=== PATIENT | male | born 1945 | race Caucasian/White ===

== ENCOUNTER 2021-09-02 14:37 | Outpatient (CLI) | payer OTHER, SELFPAY ==
--- NOTE | ~2021-09-02 | US_ITS ---
EXAMINATION: US venous doppler UE RT DATE: 09/02/2021 15:16 INDICATION: Right upper extremity swelling TECHNIQUE: Grayscale ultrasound images without and with compression and Doppler ultrasound images of the right upper extremity veins were obtained. COMPARISON: None. FINDINGS: The right internal jugular vein, subclavian vein, axillary vein, brachial veins, basilic vein, cephal ic vein, radial vein, and ulnar vein are patent. IMPRESSION: 1. No evidence of deep venous thrombosis. Reviewed, dictated and finalized at location A. ITION TEACHER
--- NOTE | ~2021-09-02 | CT_ITS ---
EXAMINATION: CT brain wo con DATE: 09/02/2021 15:26 INDICATION: Head injury. TECHNIQUE: Computed tomography (CT) of the head was performed without intravenous contrast. The mA wa s adjusted according to patient size. Iterative reconstruction technique was employed. The dose-lengt h product was 605.33 mGy-cm. COMPARISON: None FINDINGS: There is no intracranial hemorrhage, acute infarction, or abnormal intracranial mass lesion . 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 There are scattered areas of low atten uation in the cerebral white matter, which is within normal limits for the patient's age. The ventri cles are normal in size. There is mild mucosal thickening in the paranasal sinuses. There are likely changes of ocular lens replacement surgeries. The mastoid air cells are normal. IMPRESSION: 1. 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 Reviewed, dictated and finalized at location A. OR BENEFITS SPECIALIST
--- NOTE | ~2021-09-02 | CT_ITS ---
EXAMINATION: CT facial bones wo con DATE: 09/02/2021 15:26 INDICATION: Face injury. TECHNIQUE: Computed tomography (CT) of the facial bones and maxillofacial region was performed withou t intravenous contrast. Automated exposure control and iterative reconstruction technique were employ ed. The dose-length product was 495.16 mGy-cm. COMPARISON: None. FINDINGS: There are likely changes of ocular lens replacement surgeries. There is rightward deviation of the nasal septum. There are dystrophic calcifications in the nose. There is mild mucosal thickeni ng in the paranasal sinuses. There is severe cervical spondylosis. IMPRESSION: 1. No fracture. Reviewed, dictated and finalized at location A. OYEE WELLNESS/FITNESS COORDINATOR IMPRESSION: 1. No fracture.
== END 2021-09-02 14:38 | disposition home or self-care (01) ==
LOC: ANHIMG 14:43
PROVIDERS: PCP Internal Medicine; Visit Provider Registered Nurse
DX: S00.83XA Contusion of other part of head, initial encounter (principal); W19.XXXA Unspecified fall, initial encounter; M79.89 Other specified soft tissue disorders; M79.601 Pain in right arm; R23.8 Other skin changes; Z86.73 Personal history of transient ischemic attack (TIA), and cerebral infarction without residual deficits
CPT/HCPCS: 70450; 70486; 93971

== ENCOUNTER 2021-09-02 16:55 | Emergency (ER) | payer OTHER, SELFPAY ==
--- NOTE | ~2021-09-02 | CT_ITS ---
EXAMINATION: CT cervical spine wo con DATE: 09/02/2021 18:05 INDICATION: Fall 3 days ago; neck pain. TECHNIQUE: Computed tomography (CT) of the cervical spine was performed without intravenous contrast. Automated exposure control and iterative reconstruction technique were employed. Exam dose: 521.86 mGy-cm total exam DLP. COMPARISON: None FINDINGS: There is straightening of cervical spine, which may be due to muscle spasm and/or positioni ng. There is degenerative disc disease throughout the cervical spine, C3-4, C4-5, C5-6 and C6-7 as well as C7-T1. There is 4 mm anterolisthesis at C7-T1. There is prominent degenerative change at the apophyseal and uncovertebral joints throughout the cerv ical spine. No fracture of the cervical spine is evident. C1 and C2 are normally aligned and the odontoid process is intact. No prevertebral soft tissue swelling.. IMPRESSION: Straightening Extensive degenerative changes 4 mm anterolisthesis at C7-T1 No fracture or dislocation is noted otherwise Reviewed, dictated and finalized at [facility]. Reviewed, dictated and finalized at location A. BUILDER HELPER
--- NOTE | ~2021-09-02 | XR_ITS ---
XR elbow RT min 3V DATE: 09/02/2021 17:57 INDICATION: Generalized left elbow pain after fall. TECHNIQUE: 4 views COMPARISON: None FINDINGS: Mild dorsal olecranon process spur. There is osteoarthritic change at the elbow joint. There is elevation of the anterior and posterior fat pads compatible with elbow joint effusion. No recent fracture or dislocation, periosteal reaction or bone destruction is evident. IV is noted in the antecubital fossa. IMPRESSION: Elbow joint effusion; no apparent recent fracture or dislocation Osteoarthritis Dorsal olecranon process spur Reviewed, dictated and finalized at location A. NGUAL SALES REPRESENTATIVE
[2021-09-02 17:04] VITALS: BP 145/93; PULSE 92; RESP 18; TEMP 36.9; O2SAT 98
[2021-09-02 17:20] VITALS: PULSE 94; RESP 17; O2SAT 97
--- NOTE | 2021-09-02 17:29 | PC.NURSE ---
20g IV initiated in right ac x1 attempt. labs drawn.
[2021-09-02 17:30] VITALS: PULSE 94; RESP 19; O2SAT 97
--- NOTE | 2021-09-02 18:42 | ED.NECK ---
HPI - Neck Pain/Injury General Chief Complaint: Neck Pain/Injury Stated Complaint: fall/ neck injury Time Seen by Provider: 09/02/21 17:32 Source: patient and RN notes reviewed Mode of arrival: ambulatory Limitations: no limitations History of Present Illness HPI Narrative: This is a 76 year old male who presents for evaluation of possible neck injury. Patient states he accidentally fell leaving a bar on Sunday. He suffered right elbow bruising and facial wounds. He was evaluated by his primary care provider today and they ordered outpatient imaging. Patient was sent to [facility] for CT brain, CT face and right arm venous Doppler. Patient also state he had an xray of his neck and right elbow performed in clinic. The nurse practitioner from his doctor's office called [facility] to state she was sending patient to ER for an odontoid fracture seen on xray. PAtient states he never had neck pain and he does not currently have neck pain. He also denies any focal weakness , numbness or tingling. He denies rib pain, sob, or abdominal pain. He was placed in C collar on arrival to ER. He states he had an US of his right arm due to redness and swelling at his right elbow. He denies any elbow pain. Related Data Home Medications Medication Instructions Recorded Confirmed allopurinol 300 mg PO DAILY 09/02/21 atorvastatin 20 mg PO DAILY 09/02/21 furosemide [Lasix] 40 mg PO DAILY 09/02/21 metoprolol succinate 25 mg PO 09/02/21 spironolactone 25 mg PO DAILY 09/02/21 Allergies Allergy/AdvReac Type Severity Reaction Status Date / Time No Known Allergies Allergy Verified 09/02/21 17:12 Review of Systems Review of Systems: All systems reviewed & are unremarkable except as noted in HPI and below [facility] Past Medical History Medical History (Updated 09/02/21 @ 18:57 by Lupe Selby MD) Hypertension Surgical History Surgical History (Updated 09/02/21 @ 18:52 by Lupe Selby MD) History of tonsillectomy Social History Social History (Updated 09/02/21 @ 18:52 by Lupe Selby MD) Alcohol intake: current Exam Const: General: no acute distress and alert Orientation/consciousness: patient oriented x3 HENMT: Head: normocephalic, atraumatic and other (right facial abrasion and bruising) Face and sinus: sinuses nontender and face symmetric Mouth: Yes Normal oral and palatal mucosa present, Yes lip normal, Yes oropharynx normal and Yes moist mucous membranes Eyes: Pupils: Equal, round and reactive pupils present EOM: EOMs intact bilaterally Neck: Neck: normal visual inspection Chest: Chest palpation & inspection: normal inspection of the chest Resp: Effort & Inspection: normal respiratory effort and no retractions Auscultation: clear to auscultation bilaterally Cardio: Rate: regular rate Rhythm: regular rhythm Heart sounds: no murmurs GI: GI Palp: Yes Soft to palpation, No Tenderness to palpation present (GI) and No Guarding due to palpation present (GI) Auscultation: normal bowel sounds Other: ecchymosis to left flank Neuro: General: patient oriented x3 and moves all extremities Extrem: Other: right arm with swelling and erythema medial elbow, no tenderness, FROM Psych: Mental Status: mental status grossly normal Affect: normal affect Course Reevaluation(s) Reevaluation #1: I discussed with patient and his no fracture found on imagine. He will be started on keflex for right elbow cellulitis. He was given tetanus by PCP Date: 09/02/21 Time: 18:54 Vital Signs Vital signs: Vital Signs Temperature 98.4 F 09/02/21 17:04 Pulse Rate 92 09/02/21 17:04 Respiratory Rate 18 09/02/21 17:04 Blood Pressure 145/93 H 09/02/21 17:04 Pulse Oximetry 98 09/02/21 17:04 Temperature 98.4 F 09/02/21 17:04 Pulse Rate 70 09/02/21 19:14 Respiratory Rate 18 09/02/21 19:14 Blood Pressure 123/70 09/02/21 19:14 Pulse Oximetry 99 09/02/21 19:14 MDM - Neck
[2021-09-02 19:14] VITALS: BP 123/70; PULSE 70; RESP 18; O2SAT 99
== END 2021-09-02 19:16 | disposition home or self-care (01) ==
PROVIDERS: Emergency Provider General Practice; PCP Internal Medicine
DX: M25.421 Effusion, right elbow (principal); L03.811 Cellulitis of head [any part, except face]; S00.81XA Abrasion of other part of head, initial encounter; I10 Essential (primary) hypertension; W19.XXXA Unspecified fall, initial encounter; Y92.89 Other specified places as the place of occurrence of the external cause
CPT/HCPCS: 70450; 70486; 72125; 73080; 93971; 99284

== ENCOUNTER 2022-03-10 12:32 | Outpatient (CLI) | payer OTHER, SELFPAY ==
--- NOTE | ~2022-03-10 | US_ITS ---
EXAMINATION: US venous doppler LE RT DATE: 03/10/2022 13:15 INDICATION: Right lower limb swelling TECHNIQUE: Grayscale ultrasound images without and with compression and Doppler ultrasound images of the right lower extremity veins were obtained. COMPARISON: 05/10/2018 FINDINGS: The right femoral vein is partially compressible with persistent nonocclusive thrombus in the proxima l to distal right femoral vein. The visualized portions of right common femoral vein, profunda (deep) femoral vein, popliteal vein, posterior tibial veins, gastrocnemius vein and greater saphenous vein outflow are patent. The right peroneal veins are not identified. IMPRESSION: 1. Age-indeterminate nonocclusive thrombus in the proximal to distal right femoral vein where there was previous thrombus and is unclear whether this is chronic or recurrent. Reviewed, dictated and finalized at location B. IMPRESSION: 1. Age-indeterminate nonocclusive thrombus in the proximal to distal right fem oral vein where there was previous thrombus and is unclear whether this is buffer chrome suzy or recurrent.
== END 2022-03-10 12:33 | disposition home or self-care (01) ==
PROVIDERS: PCP Internal Medicine; Visit Provider Nurse Practitioner Family
DX: I82.411 Acute embolism and thrombosis of right femoral vein (principal)
CPT/HCPCS: 93971

== ENCOUNTER 2024-06-13 10:07 | Observation (INO) | payer OTHER, SELFPAY ==
[2024-06-13] VITALS (8 sets, daily range): BP systolic 110–120; BP diastolic 51–69; PULSE 83–102; RESP 15–20; TEMP 36.5–36.6; O2SAT 97–100; BMI 33.7
--- NOTE | ~2024-06-13 | XR_ITS ---
XR_[id number] Ordering provider: Jodie Judd APRN History: . unstable subluxation, ortho requests straight leg . Comparison: None. FINDINGS: BONES: No acute fracture. Anterior subluxation of the femoral prosthesis is seen. JOINT SPACES: Total knee arthroplasty. SOFT TISSUES: Normal. IMPRESSION: No acute osseous abnormality. Anterior dislocation of the femur arthroplasty prosthesis of the knee compared to the tibial the pros thesis. Reviewed, dictated and finalized at location A. IMPRESSION: No acute osseous abnormality. Anterior dislocation of the femur arthroplasty prosthesis of the knee compared to the tibial the prosthesis.
--- NOTE | ~2024-06-13 | US_ITS ---
US arterial ankle brachial ind INDICATION: Arterial occlusion. High cholesterol levels. Loss of hair. TECHNIQUE: Segmental pressures and plethysmographic and Doppler waveforms of the brachial and lower e xtremity arteries were obtained. COMPARISON: No prior studies for comparison. . FINDINGS: Right and left brachial artery pressures of 103 mm Hg and 112 mm Hg, respectively, are concordant (no rmal difference <= 30 mmHg). Ankle-brachial indices could not be obtained. A total brachial indices are below normal limits measur ing 0.57 on the right and 0.4 on the left. IMPRESSION: 1. Limited study. Ankle-brachial indices could not be performed. Toe brachial indices below normal li mits consistent with peripheral arterial disease. Reviewed, dictated and finalized at location B. IMPRESSION: 1. Limited study. Ankle-brachial indices could not be performed. Toe brachial i ndices below normal limits consistent with peripheral arterial disease.
--- NOTE | ~2024-06-13 | XR_ITS ---
XR knee LT min 4V 06/13/2024 11:42 Indication: Left knee swelling Procedure: 4 views left knee Comparison: No prior studies for comparison. Findings: There is posterior subluxation of the knee. There is a left knee arthroplasty. There is an old healed distal femoral fracture with cerclage wires. There is longstem femoral component to the kn ee arthroplasty. There is patellar resurfacing. There is a proximal fibular fracture, age indetermina te. Moderate lateral soft tissue swelling. Impression: 1: Posterior subluxation of the tibia with respect to the femur. 2: Age-indeterminate proximal fibular head fracture with adjacent soft tissue swelling. 3: Left knee arthroplasty with longstem femoral component. Reviewed, dictated and finalized at location B. Impression: 1: Posterior subluxation of the tibia with respect to the femur. 2: Age-indeterminate proximal fibular head fracture with adjacent soft tissue s welling. 3: Left knee arthroplasty with longstem femoral component.
--- NOTE | ~2024-06-13 | CT_ITS ---
CTA chest PE protocol Ordering provider: Jodie Judd APRN History: 78 years Male with . swollen left leg, elevated d.dimer . Comparison: None. Technique: CT angiogram chest was performed following timed intravenous injection of contrast. Thin s lice axial images and reformatted coronal images were obtained. Three dimensional reformatted images of the chest were also obtained using a [employer] workstation. . Automated exposure control and iterati ve reconstruction technique were employed. The dose-length product was 719.76 mGy-cm. 100 mL Omnipaqu e 350 was given IV. Findings: PULMONARY ARTERIES: No pulmonary embolus. VISUALIZED THORACIC INLET: Normal. MEDIASTINUM: Aorta/coronary arteries: Mild atheromatous disease. Aortic valve prosthesis is noted. Heart/other: The heart is not enlarged. Lymph nodes: No mediastinal or hilar adenopathy. Multiple calcified lymph nodes. Right hilar and subc arinal lymph nodes. LUNGS: Minimal left basilar atelectasis with minimal effusion. No pulmonary nodules or masses. No infiltrate s . No pneumothorax. VISUALIZED UPPER ABDOMEN: Small sliding hiatus hernia. Anterior abdominal wall fat-containing hernia. Otherwise, the visualized upper abdomen is normal. MUSCULOSKELETAL: Soft tissues: The superficial soft tissues are normal. Bones: Age appropriate degenerative changes of the spine. Postoperative changes in the sternum with d ehiscence of the bones. IMPRESSION: 1. No pulmonary embolism. 2. Minimal left basilar atelectasis with minimal effusion. 3. Sliding hiatus hernia. 4. Postoperative changes in the mediastinum with dehiscence of the sternum. Reviewed, dictated and finalized at location A.
--- NOTE | ~2024-06-13 | US_ITS ---
EXAMINATION: US venous doppler [facility] DATE: 06/13/2024 11:56 INDICATION: Left lower limb pain and swelling TECHNIQUE: Grayscale ultrasound images without and with compression and Doppler ultrasound images of the left lower extremity veins were obtained. COMPARISON: None. FINDINGS: The visualized portions of left common femoral vein, profunda (deep) femoral vein, femoral vein, popl iteal vein, peroneal veins, posterior tibial veins, gastrocnemius vein and greater saphenous vein out flow are patent. Incidentally noted is a small region atherosclerotic plaque at the mid left superfic ial femoral artery which appears significant on the provided images however the downstream peak systo lic velocity of 30 cm/s does not appear significantly elevated. IMPRESSION: 1. No deep venous thrombosis in the left lower limb. 2. Small region of atherosclerotic plaque at the mid left superficial femoral artery which on the pro vided imaging plane appears to involve greater than 70% the intraluminal diameter of the vessel howev er the downstream peak systolic velocity does not appear elevated. There is clinical concern for arjun rial occlusive disease could consider arterial Doppler study for further evaluation. Reviewed, dictated and finalized at location A. IMPRESSION: 1. No deep venous thrombosis in the left lower limb. 2. Small region of atherosclerotic plaque at the mid left superficial femoral a rtery which on the provided imaging plane appears to involve greater than 70% t he intraluminal diameter of the vessel however the downstream peak systolic bishop ocity does not appear elevated. There is clinical concern for arterial occlusiv e disease could consider arterial Doppler study for further evaluation.
--- NOTE | ~2024-06-13 | US_ITS ---
US right upper quadrant INDICATION: PROCEDURE: Realtime right upper abdominal ultrasound. COMPARISON: No prior studies for comparison. FINDINGS: Pancreas not well visualized due to bowel gas. Limited visualization of the liver is grossl y unremarkable. Gallbladder is not well distended, although grossly unremarkable. Common duct is norm al measuring 2.7 mm. Normal directional flow in the portal vein. IMPRESSION: 1: Limited examination of the abdomen. No significant abnormality identified. Reviewed, dictated and finalized at location B.
--- NOTE | ~2024-06-13 | XR_ITS ---
EXAM: XR_[id number]_CR DATE: 06/13/2024 18:38 HISTORY: post reduction . COMPARISON: Same date at 4:35 PM. FINDINGS/IMPRESSION: Successful interval left knee reduction. No other significant interval change. Reviewed, dictated and finalized at location K.
--- NOTE | ~2024-06-13 | XR_ITS ---
EXAMINATION: XR chest 2V 06/13/2024 11:41 INDICATION: Cardiac history. Cough. PROCEDURE: 2 view chest COMPARISON: No prior studies for comparison. FINDINGS: The lungs are clear. Status post median sternotomy for CABG. There is a prosthetic heart va lve. There are multiple fractured sternal wires. The cardiomediastinal silhouette is enlarged. There are no pleural effusions. There is no pneumothorax suspected. IMPRESSION: 1: No acute cardiopulmonary disease. 2: Cardiomegaly. Reviewed, dictated and finalized at location B.
--- NOTE | 2024-06-13 10:29 | ECG_ITS ---
Test Date: 2024-06-13 10:32:17 Measurements Intervals [place] Rate: 91 P: 0 [place]: 0 QRS: 29 QRSD: 161 T: 54 QT: 401 QTc: 494 Interpretive Statements SINUS RHYTHM BORDERLINE AV CONDUCTION DELAY LEFT BUNDLE BRANCH BLOCK BASELINE ARTIFACT- I, II, III, AVR, AVL, AVF, V4-V5 ABNORMAL ECG No previous ECG available for comparison Electronically Signed On 06-13-2024 10:34:16 CDT by Eran Salcedo D.O.
--- NOTE | 2024-06-13 10:50 | ED.EXTPRO ---
HPI - Extremity Problem General Chief complaint: Extremity Problem,Nontraumatic <Jodie Judd APRN - Last Filed: 06/13/24 20:05> Stated complaint: leg edema <Jodie Judd APRN - Last Filed: 06/13/24 20:05> Time Seen by Provider: 06/13/24 10:12 <Jodie Judd APRN - Last Filed: 06/13/24 20:05> Source: patient and family <Jodie Judd APRN - Last Filed: 06/13/24 20:05> Limitations: no limitations <Jodie Judd APRN - Last Filed: 06/13/24 20:05> History of Present Illness HPI Narrative: Patient is a 78-year-old male who presents to the ER with left-sided knee and pain. He reports he has a history of AFib, cardiac surgery, left knee replacement, gout, and congestive heart failure. Patient reports he drinks alcohol every day. He reports he went to [place] on Sunday for evaluation of a sudden onset left knee, left calf pain and swelling. Patient also endorses a bloated abdomen, coughing up sputum, and falls with the most recent being last Sunday (6 days ago) when he landed on his left knee after he rolled out of bed. He endorses his left leg pain feels like a charley horse and has caused him to stop in his tracks at times. Patient denies chest pain, shortness a breath, or other signs/symptoms of illness. <Jodie Judd APRN - Last Filed: 06/13/24 20:05> Related Data Home medications: Home Medications Medication Instructions Recorded Confirmed allopurinol 300 mg tablet 300 mg PO DAILY 09/02/21 atorvastatin 20 mg tablet 20 mg PO DAILY 09/02/21 furosemide 40 mg tablet (Lasix) 40 mg PO DAILY 09/02/21 metoprolol succinate 25 mg 25 mg PO 09/02/21 tablet,extended release 24 hr spironolactone 25 mg tablet 25 mg PO DAILY 09/02/21 <Jodie Judd APRN - Last Filed: 06/13/24 20:05> Allergies/Adverse reactions: Allergies Allergy/AdvReac Type Severity Reaction Status Date / Time No Known Allergies Allergy Verified 09/02/21 17:12 <Jodie Judd APRN - Last Filed: 06/13/24 20:05> Review of Systems Review of Systems: All systems reviewed & are unremarkable except as noted in HPI and below <Jodie Judd APRN - Last Filed: 06/13/24 20:05> PMFSH Past Medical History Medical History: Medical History (Updated 06/13/24 @ 19:30 by Jodie Judd APRN) Arterial insufficiency of lower extremity CAD (coronary artery disease) CHF (congestive heart failure) Chronic a-fib Dislocation of prosthetic knee joint Hypertension <Jodie Judd APRN - Last Filed: 06/13/24 20:05> Surgical History Surgical History: Surgical History History of tonsillectomy Hx of CABG <Jodie Judd APRN - Last Filed: 06/13/24 20:05> Social History Social History: Social History Alcohol intake: current <Jodie Judd APRN - Last Filed: 06/13/24 20:05> Exam Narrative: GENERAL: Well appearing, well-nourished, non-toxic, in no acute distress. HEAD: Normocephalic, atraumatic. No notable nystagmus. NECK: Supple. No adenopathy, no masses. RESPIRATORY: Airway patent, respirations nonlabored. Clear to auscultation bilaterally, no rales, rhonchi, wheezing. Positive for productive cough. CARDIOVASCULAR: Irregular rate and rhythm without murmurs, rubs, or gallops. Peripheral pulses 1+ and equal bilaterally. Discoloration in lower extremities most likely d/t PAD. ABDOMINAL: Soft, nontender, mildly distended, no hepatosplenomegaly. Normoactive BS. MUSCULOSKELETAL: Moves all extremities. Strength intact with 2+ non-pitting edema to bilateral lower extremities. L and R knee have moderate swelling. L knee has mild ecchymosis and greater swelling than R knee. SKIN: Warm, dry, increased redness to lower extremities. No rashes. NEURO: A&O X3. Speech clear. Cranial nerves intact. No ataxic movements. PSYCHIATRIC:
[2024-06-13 11:06] LABS: Basophils Percent Auto 0.2 % (0.2-1.2); Eosinophils Absolute Auto 0.1 K/mm3 (0-0.3); Eosinophils Percent Auto 0.4 % (0-4.4); Hemoglobin 12.6 g/dL (14.0-18.0); Immature Granulocyte Absolute 0.04 K/mm3 (0.00-0.031); Immature Granulocyte Percent A 0.3 % (0-0.5); Lymphocytes Percent Auto 15.2 % (18.3-44.2); Mean Corpuscular HGB Conc 34.1 g/dl (32-36); Mean Corpuscular Volume 102.8 fl (80-100); Mean Platelet Volume 12.2 fl (7.4-10.4); Monocytes Absolute Auto 1.2 K/mm3 (0.1-0.6); Monocytes Percent Auto 9.3 % (2.6-8.5); Neutrophils Absolute Auto 9.3 K/mm3 (1.3-6.7); Neutrophils Percent Auto 74.6 % (45.5-73.1); Platelet Count Result 127 k/mm3 (150-375); Red Cell Distribution Width 14.1 % (11.5-14.5); White Blood Count 12.5 K/mm3 (4.5-10.0)
[2024-06-13 11:18] LABS: INR 2.4
[2024-06-13 11:19] LABS: Partial Thromboplastin Time 46.1 Seconds (22.3-36.8)
[2024-06-13 11:21] LABS: D Dimer 2.88 ug/mL (<0.48)
[2024-06-13 11:27] LABS: Alanine Aminotransferase 19 U/L (6-50); Albumin Level 3.6 g/dL (3.5-5.1); Alkaline Phosphatase 82 U/L (38-126); Anion Gap 8 mmol/L (4-12); Aspartate Amino Transferase 34 U/L (17-59); Bilirubin,Total 1.2 mg/dL (0.2-1.3); Blood Urea Nitrogen 23 mg/dL (9-20); Calcium 8.8 mg/dL (8.4-10.2); Carbon Dioxide 21 mmol/L (22-30); Chloride 97 mmol/L (98-107); Estimated Glomerular Filt Rate > 60; Glucose 108 mg/dL (65-110); Lipase 68 U/L (23-300); Potassium 4.3 mmol/L (3.4-5.0); Sodium 126 mmol/L (137-145)
[2024-06-13 11:38] LABS: Troponin I < 0.012 ng/mL (0.000-0.034)
[2024-06-13 12:55] LABS: Lactic Acid Reflex 1.4 mmol/L (0.7-2.0)
[2024-06-13] MEDS: SODIUM CHLORIDE 0.9% IV 1,000 ML 999 ML IV CONT (13:46)
[2024-06-13 14:00] LABS: Add Urine Microscopic? NO; Appearance Urine Clear (Clear); Bilirubin Urine Negative (Negative); Blood Urine Negative (Negative); Color Urine Yellow (Yellow); Glucose Urine UA Negative (Negative); Ketones Urine Negative (Negative); Leukocyte Esterase Ur Negative LEU/UL (Negative); Nitrate Urine Negative (Negative); Protein Urine Negative (Negative); Specific Grav Ur 1.036 (1.001-1.035); Urobilinogen Urine 0.2 mg/dL (<2.0); pH Urine 5.5 (5.0-9.0)
[2024-06-13] MEDS: MORPHINE SULFATE (*CRX) 2 MG/ML INJ IV PUSH (17:36)
--- NOTE | 2024-06-13 18:07 | WPDANESEPPF ---
Anes - Initial Pre Proc Eval Date/Time: 06/13/24 18:07 Pre Op Diagnosis: leg edema Patient Data Age: 78 Gender: M Height: Weight: Last Vital Signs Temp 36.6 C 06/13/24 16:17 Pulse 88 06/13/24 16:17 Resp 20 06/13/24 16:17 BP 114/69 06/13/24 16:17 Pulse Ox 99 06/13/24 16:17 O2 Del Method Room Air 06/13/24 10:09 Allergies Allergy/AdvReac Type Severity Reaction Status Date / Time No Known Allergies Allergy Verified 09/02/21 17:12 Home Medications Medication Instructions Recorded Confirmed Type allopurinol 300 mg tablet 300 mg PO DAILY 09/02/21 History atorvastatin 20 mg tablet 20 mg PO DAILY 09/02/21 History cephalexin 500 mg capsule 500 mg PO Q6H 7 days #28 caps 09/02/21 Rx furosemide 40 mg tablet (Lasix) 40 mg PO DAILY 09/02/21 History metoprolol succinate 25 mg 25 mg PO 09/02/21 History tablet,extended release 24 hr spironolactone 25 mg tablet 25 mg PO DAILY 09/02/21 History Laboratory Tests 06/13/24 06/13/24 06/13/24 11:00 12:35 13:49 WBC 12.5 H K/mm3 (4.5-10.0) RBC 3.60 L M/mm3 (4.6-6.20) Hgb 12.6 L g/dL (14.0-18.0) Hct 37.0 L % (42.0-52.0) MCV 102.8 H fl (80-100) MCH 35.0 H pg (26-34) MCHC 34.1 g/dl (32-36) RDW 14.1 % (11.5-14.5) Plt Count 127 L k/mm3 (150-375) MPV 12.2 H fl (7.4-10.4) Immature Gran % (Auto) 0.3 % (0-0.5) Neut % (Auto) 74.6 H % (45.5-73.1) Lymph % (Auto) 15.2 L % (18.3-44.2) [place] % (Auto) 9.3 H % (2.6-8.5) Eos % (Auto) 0.4 % (0-4.4) Baso % (Auto) 0.2 % (0.2-1.2) Lymph # (Auto) 1.90 K/mm3 (0.9-3.2) [place] # (Auto) 1.2 H K/mm3 (0.1-0.6) Eos # (Auto) 0.1 K/mm3 (0-0.3) Baso # (Auto) 0.0 K/mm3 (0.0-0.1) Abs Immat Gran (auto) 0.04 H K/mm3 (0.00-0.031) Absolute Neuts (auto) 9.3 H K/mm3 (1.3-6.7) Absolute Nucleated RBC 0.000 K/mm3 (0.0-0.012) Nucleated RBC % 0.0 % (0.0-0.2) PT 27.0 H Seconds (11.1-14.7) INR 2.4 APTT 46.1 H Seconds (22.3-36.8) D-Dimer 2.88 H ug/mL (<0.48) Sodium 126 L mmol/L (137-145) Potassium 4.3 mmol/L (3.4-5.0) Chloride 97 L mmol/L (98-107) Carbon Dioxide 21 L mmol/L (22-30) Anion Gap 8 mmol/L (4-12) BUN 23 H mg/dL (9-20) Creatinine 0.90 mg/dL (0.7-1.3) Estim Creat Clear Calc Not Reportable Estimated GFR > 60 (59 - ) Glucose 108 mg/dL (65-110) Lactic Acid 1.4 mmol/L (0.7-2.0) Calcium 8.8 mg/dL (8.4-10.2) Total Bilirubin 1.2 mg/dL (0.2-1.3) AST 34 U/L (17-59) ALT 19 U/L (6-50) Alkaline Phosphatase 82 U/L (38-126) Troponin I < 0.012 ng/mL (0.000-0.034) Total Protein 7.0 g/dL (6.3-8.2) Albumin 3.6 g/dL (3.5-5.1) Lipase 68 U/L (23-300) Urine Color Yellow (Yellow) Urine Appearance Clear (Clear) Urine pH 5.5 (5.0-9.0) Ur Specific [place] 1.036 H (1.001-1.035) Urine Protein Negative mg/dL (Negative) Urine Glucose (UA) Negative mg/dL (Negative) Urine Ketones Negative mg/dL (Negative) Ur Blood (Man) Negative (Negative) Urine Nitrate Negative (Negative) Urine Bilirubin Negative (Negative) Urine Urobilinogen 0.2 mg/dL (<2.0) Leukocyte Esterase Rfl Negative LEE/UL (Negative) Patient hx anesthesia problems: none Family hx anesthesia problems: none Results Review: All pre-operative results and documents have been reviewed as part of the pre-operative evaluation. [facility] Past Medical History Medical History (Updated 06/13/24 @ 18:07
--- NOTE | 2024-06-13 18:55 | PC.NURSE ---
185-NOTIFIED BY ER PROVIDER, PATIENT'S HAD LEFT KNEE REDUCED WITH SEDATION BY ANESTHESIA AND PROCEDURE BY DR. VILLA AND OR STAFF. NO CASTING FINISHER WAS PRESENT PRE-PROCEDURE OR DURING PROCEDURE. NO REPORT WAS RECEIVED FROM OR STAFF, ANESTHESIA, OR DR. VILLA. PATIENT CURRENTLY HAS 1000 CC LR RUNNING WIDE OPEN.
--- NOTE | 2024-06-13 19:08 | PM.CNOR ---
Assessment and Plan Assessment and plan (1) Dislocation of prosthetic knee joint: Qualifiers: Encounter type: initial encounter Qualified Code(s): T84.028A - Dislocation of other internal joint prosthesis, initial encounter; Z96.659 - Presence of unspecified artificial knee joint Code(s): T84.028A - Dislocation of other internal joint prosthesis, initial encounter; Z96.659 - Presence of unspecified artificial knee joint Status: Acute Assessment and Plan: New patient evaluation in the emergency room for chief complaint left knee dislocation. History, physical exam and radiographs reviewed with the patient and his . By their history, dislocation occurred several days ago. He has been at home nonambulatory. History of dislocation 1 time before. Discussed the condition, nature, etiology and course of natural history with the patient. Treatment options including surgical and nonoperative treatment were reviewed. Risks and benefits of each as well as alternatives reviewed. The patient's questions were answered. Conservative treatment ice, compression and elevation. Requires urgent reduction in the emergency room. Discussed with Anesthesiology. Agree to provide sedation. Discussed nonoperative and operative treatment options with the patient. Risks and benefits of each as well as alternatives were reviewed. All of the patient's questions were answered. The risks of procedure reviewed including but not limited to: Neurovascular damage, wound complication, infection, blood clot, pulmonary embolus, stroke, myocardial infarction, and anesthetic risks up to and including . Continued pain and possible dysfunction were explained. Lower extremity at risk with dislocation left unreduced. Specific risks of the procedure including later recurrence of deformity. No guarantees were offered. If complications occur, the patient understands the need for further treatment, possible further surgery. Patient verbalizes understanding and wishes to proceed. PLAN: Left knee reduction under sedation. (2) Arterial insufficiency of lower extremity: Code(s): I73.9 - Peripheral vascular disease, unspecified Status: Acute Assessment and Plan: CHARLEY showed decrease arterial blood flow bilateral lower extremities left greater than right. Changes appear chronic. No palpable pulses but feet are warm. No ulcers or wounds. Recommend vascular follow-up as outpatient. Plan Addendum: Successful left knee closed reduction under sedation verified with postreduction radiographs. Knee immobilizer applied. Plan for admit to floor for observation, possible alcohol withdrawal. Will schedule physical therapy tomorrow with weight-bearing as tolerated with knee immobilizer in place. History of Present Illness HPI Consult date: 06/13/24 Requesting physician: Jodie Judd APRN Consult reason: joint pain (Left knee dislocation) Chief complaint: leg edema Narrative: 78-year-old man lives at home with his with history of left knee arthroplasty in the past. For the past 6 days has had pain and swelling in left knee and difficulty extending it. he has been unable to bear weight. Presented to emergency room and found to have dislocation. Review of Systems Constitutional: Constitutional: Denies fever(s) Eyes: Eyes: Denies blurry vision ENT: Reports Normal hearing present Cardiovascular: Cardiovascular: Denies chest pain and Denies dyspnea Respiratory: Respiratory: Denies dyspnea and Denies wheezing Gastrointestinal: Gastrointestinal: Denies abdominal pain Genitourinary: Genitourinary: Denies urinary urgency Musculoskeletal: Musculoskeletal: Reports as per HPI and Denies numbness Integumentary/Breasts: Skin/Breast: Denies changing lesions and Denies sores Neurologic: Reports Normal hearing present, Denies behavioral changes, Denies confusion, Denies numbness and Denies convulsions Psychiatric: Psychia
--- NOTE | 2024-06-13 19:19 | W.PM.PROC2 ---
Procedure Note - Detailed Date of Procedure 06/13/24 Pre-op Diagnosis Left prosthetic knee dislocation Post-op Diagnosis Same Procedure Performed Close reduction left Surgeon Randy Fournier MD Anesthesia MAC Indications 78 with posteriorly dislocated left knee prosthesis. Requires urgent reduction. Patient noted to have decreased arterial blood flow. Description of Procedure After informed consent and IV sedation by the anesthesia team left knee was manually reduced with traction and countertraction. Palpable reduction felt. Postreduction radiographs confirmed alignment. Estimated Blood Loss 0 Tourniquet Time Total Tourniquet Time: 0 Drains No Packing No Pathology None sent Complications None Condition Stable Disposition Other (Emergency room) [facility] Billing Surgery - Charge Forward: Surgery Billing ([id number])
--- NOTE | 2024-06-13 19:27 | PC.NURSE ---
Patient found to be on 10 LPM via simple mask; removed at 1928 because patient said the doctor placed him on it prior to the knee procedure.
--- NOTE | 2024-06-13 20:39 | PM.IMHP ---
H&P: [facility] History of Present Illness Date/Time: 06/13/24 20:39 Chief Complaint: Left leg swelling Narrative: 78-year-old male with a past medical history of mitral valve replacement x2, coronary disease (?CABG 1 vessel), alcoholism, paroxysmal AFib on chronic anticoagulation with Eliquis, and CHF who presented to the ER with left knee and leg swelling. The patient reports he have fallen out of bed earlier in the week and his had leg swelling since that time. Imaging in the ER demonstrated dislocation of the patella which was reduced in the ER under anesthesia by Orthopedic surgery. The patient was incidentally found to have acute on chronic hyponatremia. The patient reports that since his knee has been bothering him he has not been getting up in walking around the house. In fact, he has not had an alcoholic beverage since Sunday because he could not go to the bar to get his drinks. He usually goes to the bar 4-5 days a week and drinks about 20 dollars in alcohol. The patient will not give me a rough estimate of the alcohol he consumes but at least 4-5 drinks a day. He denies any irritability or prior episodes of alcohol withdrawal. He has drink heavily for over 30 years. He reports that his has been bring him a urinal to void in. She has also been re him a bed brown so that he can defecate where he has had. He has not been getting up to ambulate around the house since here his knee. He has been having increasing abdominal distension recently. He reports he has been having 2-3 loose stools a day but this is his baseline. He denies any hematochezia or melena. He denies any abdominal discomfort. He does not have any known history of cirrhosis. Reportedly CTA of the chest did not demonstrate any abdominal findings suggesting cirrhosis but does unable to review imaging due to difficulty with the PAC system. He is on chronic anticoagulation due to paroxysmal AFib and history of ?artificial valve replacement?. He has had multiple falls with his most recent fall being 6 days ago. He did his head about 2 weeks ago. He denies any headache visual changes lightheadedness or vertigo. He has multiple areas of scattered bruising. Review of Systems Review of Systems: 12 systems were reviewed with pertinent positives and negatives per HPI. Except as documented in the HPI, all other systems were reviewed and are negative. [facility] Past Medical History Medical History (Updated 06/14/24 @ 08:59 by Danay Naylor DO) Arterial insufficiency of lower extremity CAD (coronary artery disease) 80% stenosis LAD CHF (congestive heart failure) Right heart catheterization proximally 2017 demonstrated severe mitral valve regurgitation with preserved ejection fraction, mild pulmonary hypertension, and single-vessel coronary disease Chronic a-fib Chronic anticoagulation Hypertension Hyponatremia Pulmonary hypertension Mild Severe mitral valve regurgitation Surgical History Surgical History (Updated 06/13/24 @ 21:34 by Danay Naylor DO) History of mitral valve repair History of right heart catheterization Performed by Dr. Sapp approximately 2016 performed due to severe mitral valve regurgitation with flail posterior leaflet. Also patient had 80% stenosis of LAD History of tonsillectomy Hx of CABG Status post cataract extraction of both eyes with insertion of intraocular lens Social History Social History (Updated 06/14/24 @ 08:57 by Danay Naylor DO) Social History: Patient lives with his they have been for 57 years. They raised 2 daughters. 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 He still plays golf on a weekly basis. Patient has chronic heavy alcohol (beer) use for many decades. Patient is a lifelong nonsmoker. Code status: Full code Surrogate decision maker: Smoking status: Never smoker Alcohol intake: current Alcohol use details: He drinks grea
--- NOTE | 2024-06-13 22:17 | ADMGEN ---
This patient, Osiel Tran, was admitted to [facility] Surg Room 306-02. Patient/family oriented to hospital policies and general routines including ID bracelet, bed and alarms, visiting hours, pain management, procedures, bathroom and other care routines, personal items, smoking policy, room service/diet, and visiting hours. Information on how to activate the Rapid Response Team has been discussed. Patient/Family are encouraged to report perceived risks to care and to ask questions if they do not understand what they are told or what they should do.
[2024-06-13] MEDS: chlordiazePOXIDE (*CRX) 25 MG CAPSULE PO (23:05)
[2024-06-13] MEDS: THIAMINE HCL 200 MG/2 ML VIAL 500 MG IM (23:55)
[2024-06-13 23:59] LABS: Glucose Point of Care 128 mg/dl (65-105)
[2024-06-14 00:10] LABS: Anion Gap 10 mmol/L (4-12); Blood Urea Nitrogen 17 mg/dL (9-20); Calcium 8.7 mg/dL (8.4-10.2); Carbon Dioxide 18 mmol/L (22-30); Chloride 100 mmol/L (98-107); Estimated CRCL calculation 106 ml/min; Estimated Glomerular Filt Rate > 60; Glucose 119 mg/dL (65-110); Magnesium 1.2 mg/dL (1.6-2.3); Phosphorus 3.3 mg/dL (2.5-4.5); Sodium 128 mmol/L (137-145)
[2024-06-14 00:23] VITALS: BP 129/59; PULSE 102; RESP 22; TEMP 36.8; O2SAT 95
[2024-06-14 04:00] VITALS: BP 143/58; PULSE 111; RESP 22; TEMP 36.8; O2SAT 92
[2024-06-14] MEDS: chlordiazePOXIDE (*CRX) 25 MG CAPSULE PO (06:03)
[2024-06-14 06:25] LABS: Basophils Percent Auto 0.1 % (0.2-1.2); Hemoglobin 12.9 g/dL (14.0-18.0); Immature Granulocyte Absolute 0.07 K/mm3 (0.00-0.031); Immature Granulocyte Percent A 0.5 % (0-0.5); Lymphocytes Absolute Auto 1.52 K/mm3 (0.9-3.2); Lymphocytes Percent Auto 10.4 % (18.3-44.2); Mean Corpuscular HGB Conc 34.9 g/dl (32-36); Mean Corpuscular Volume 100.3 fl (80-100); Monocytes Percent Auto 6.9 % (2.6-8.5); Neutrophils Percent Auto 82.1 % (45.5-73.1); Platelet Count Result 118 k/mm3 (150-375); Red Blood Count 3.69 M/mm3 (4.6-6.20); Red Cell Distribution Width 13.8 % (11.5-14.5); White Blood Count 14.6 K/mm3 (4.5-10.0)
[2024-06-14 06:29] LABS: Glucose Point of Care 135 mg/dl (65-105)
[2024-06-14 06:40] LABS: Anion Gap 12 mmol/L (4-12); Blood Urea Nitrogen 17 mg/dL (9-20); Calcium 8.3 mg/dL (8.4-10.2); Carbon Dioxide 18 mmol/L (22-30); Chloride 100 mmol/L (98-107); Estimated CRCL calculation 122 ml/min; Estimated Glomerular Filt Rate > 60; Glucose 122 mg/dL (65-110); Potassium 4.1 mmol/L (3.4-5.0); Sodium 130 mmol/L (137-145)
[2024-06-14 06:42] LABS: INR 1.9; Prothrombin Time 22.3 Seconds (11.1-14.7)
[2024-06-14 08:00] VITALS: BP 134/58; PULSE 105; RESP 18; TEMP 36.4; O2SAT 96
[2024-06-14 08:20] VITALS: PULSE 110
[2024-06-14] MEDS: SPIRONOLACTONE 25 MG TABLET PO (08:20)
[2024-06-14] MEDS: APIXABAN 5 MG TABLET PO (08:20)
[2024-06-14] MEDS: ATORVASTATIN 20 MG TABLET PO (08:20)
[2024-06-14] MEDS: allopurinoL 300 MG TABLET PO (08:20)
[2024-06-14] MEDS: METOPROLOL SUCCINATE EXT REL 25 MG TABCR PO (08:20)
--- NOTE | 2024-06-14 09:34 | PM.IMPN ---
Subjective Date/time seen: 06/14/24 09:34 Interval history: Patient is able to walk with PT OT processing assistant. Recommend PT OT as an outpatient. Objective Data Vital Signs Vital Signs: Vital Signs - 24 hr 06/13/24 10:09 06/13/24 10:45 06/13/24 12:02 Temperature 97.7 F Pulse Rate 88 83 91 Respiratory Rate 18 19 20 Blood Pressure 120/53 L Pulse Oximetry 100 100 99 Oxygen Delivery Room Air 06/13/24 12:15 06/13/24 16:17 06/13/24 19:00 Temperature 97.8 F Pulse Rate 84 88 85 Respiratory Rate 16 20 18 Blood Pressure 114/69 117/51 L Pulse Oximetry 100 99 100 Oxygen Delivery 06/13/24 21:22 06/13/24 22:00 06/14/24 00:23 Temperature 97.8 F 98.2 F Pulse Rate 102 H 102 H 102 H Respiratory Rate 15 20 22 H Blood Pressure 110/56 L 118/63 129/59 L Pulse Oximetry 99 97 95 Oxygen Delivery 06/14/24 04:00 06/14/24 08:20 06/14/24 08:00 Temperature 98.3 F 97.6 F Pulse Rate 111 H 110 H 105 H Respiratory Rate 22 H 18 Blood Pressure 143/58 H 134/58 L Pulse Oximetry 92 96 Oxygen Delivery Intake/Output Intake/Output: Intake & Output 06/11/24 06/12/24 06/13/24 06/14/24 23:59 23:59 23:59 23:59 Intake Total 1000 572 Output Total 200 Balance 1000 372 Meds/Results Medications: Active Medications Generic Name Dose Route Start Last Admin Trade Name Damianq PRN Reason Stop Dose Admin Allopurinol 300 mg 06/14/24 09:00 06/14/24 08:20 Allopurinol 300 Mg Tablet PO 300 mg DAILY JARRETT Administration Apixaban 5 mg 06/14/24 09:00 06/14/24 08:20 Apixaban 5 Mg Tablet PO 5 mg Q12HR JARRETT Administration Atorvastatin Calcium 20 mg 06/14/24 09:00 06/14/24 08:20 Atorvastatin 20 Mg Tablet PO 20 mg DAILY JARRETT Administration Chlordiazepoxide HCl 25 mg 06/13/24 22:00 06/14/24 06:03 Chlordiazepoxide (*Crx) 25 Mg Capsule PO 25 mg Q8HR JARRETT Administration Folic Acid 1 mg 06/15/24 09:00 Folic Acid 1 Mg Tablet PO DAILY [facility] Lorazepam 2 mg 06/13/24 18:40 Lorazepam Inj (*Crx) 2 Mg/Ml Vial IV PUSH Q2H PRN CIWA > 15 Lorazepam 1 mg 06/13/24 20:09 Lorazepam Inj (*Crx) 2 Mg/Ml Vial IV PUSH Q4H PRN CIWA 8-15 Metoprolol Succinate 25 mg 06/14/24 09:00 06/14/24 08:20 Metoprolol Succinate Ext Rel 25 Mg Tabcr PO 25 mg DAILY JARRETT Administration Ondansetron HCl 4 mg 06/13/24 18:40 Ondansetron Inj 4 Mg/2 Ml Vial IV PUSH Q6H PRN Nausea And Vomiting Spironolactone 25 mg 06/14/24 09:00 06/14/24 08:20 Spironolactone 25 Mg Tablet PO 25 mg DAILY JARRETT Administration Thiamine HCl 100 mg 06/15/24 09:00 Thiamine Hcl 100 Mg Tablet PO QAM [facility] Radiology Results: ITS Impressions Venous Doppler Study 06/13/24 12:01 IMPRESSION: 1. No deep venous thrombosis in the left lower limb. 2. Small region of atherosclerotic plaque at the mid left superficial femoral artery which on the provided imaging plane appears to involve greater than 70% the intraluminal diameter of the vessel however the downstream peak systolic velocity does not appear elevated. There is clinical concern for arterial occlusive disease could consider arterial Doppler study for further evaluation. Chest X-Ray 06/13/24 12:11 IMPRESSION: 1: No acute cardiopulmonary disease. 2: Cardiomegaly. Chest CTA 06/13/24 13:33 IMPRESSION: 1. No pulmonary embolism. 2. Minimal left basilar atelectasis with minimal effusion. 3. Sliding hiatus hernia. 4. Postoperative changes in the mediastinum with dehiscence of the sternum. Ankle Brachial Index 06/13/24 13:38 IMPRESSION: 1. Limited study. Ankle-brachial indices could not be performed. Toe brachial indices below normal limits consistent with peripheral arterial disease. Upper Quadrant Ultrasound 06/14/24 08:26 IMPRESSION: 1: Limited examination of the abdomen. No significant abnormality identified. Labs Labs: Laborator
--- NOTE | 2024-06-14 10:15 | PM.PNORT ---
Progress Note: A&P Assessment and Plan (1) Dislocation of prosthetic knee joint: Qualifiers: Encounter type: subsequent encounter Qualified Code(s): T84.028D - Dislocation of other internal joint prosthesis, subsequent encounter; Z96.659 - Presence of unspecified artificial knee joint Code(s): T84.028A - Dislocation of other internal joint prosthesis, initial encounter; Z96.659 - Presence of unspecified artificial knee joint Status: Acute Assessment and Plan: Close reduction left knee dislocation. Patient did well overnight. Min c/o of pain left knee. Left knee immobilizer. Did well with therapy. Okay to discharge home from orthopedic standpoint (2) Arterial insufficiency of lower extremity: Code(s): I73.9 - Peripheral vascular disease, unspecified Status: Acute Assessment and Plan: Follow-up with vascular surgery Subjective Subjective Date/Time Seen: 06/14/24 10:15 Post Op day: 1 Principal diagnosis: Left knee dislocation Interval history: Awake and alert. In chair. Minimal Complaints of pain. Exam Const: General: no acute distress and poor hygiene Orientation/consciousness: oriented to person, oriented to place, oriented to time and No confusion HENMT: Head: normal to inspection, normocephalic and atraumatic Eyes: Conjunctivae: conjunctivae normal Sclera: sclerae normal Neck: Neck: supple and nontender Resp: Effort & Inspection: normal respiratory effort and no audible wheezes Neuro: General: oriented to person, oriented to place, oriented to time and No confusion Extrem: Right upper extremity: abnormal to inspection (Chronic appearing deformity at the wrist) Left upper extremity: normal to inspection Right lower extremity: hip/thigh Details: normal ROM; no tenderness, knee Details: abnormal to inspection (Healed scars anterior and medial proximal tibia), normal ROM, knee ligament exam normal Details: anterior drawer test normal, posterior drawer test normal, valgus stress test normal, varus stress test normal and Pascual?s test normal and Levon's Test Details: negative medially and laterally; no tenderness and no swelling and foot Details: normal capillary refill, toes with normal ROM, vascular exam Details: dorsalis pedis pulse present and motor-sensory exam Details: light-touch normal; no tenderness; no edema Left lower extremity: normal to inspection, normal capillary refill, hip/thigh Details: normal ROM; no tenderness, knee Details: abnormal to inspection (Moderate Swelling diffusely at the knee. Healed anterior Knee incision. Ecchymosis medial and lateral anterior knee), tenderness Location: of the patella, of the medial joint line and of the infrapatellar area, swelling Location: of the infrapatellar area (mild), abnormal ROM (active extension -40, flexion 90), knee ligament exam normal Details: anterior drawer test normal, posterior drawer test normal, valgus stress test normal, varus stress test normal and Pascual's test normal and crepitus Location: at the patella (mild) and foot Details: toes with normal ROM, vascular exam Details: dorsalis pedis pulse present and normal capillary refill and motor-sensory exam light-touch normal; no tenderness Psych: Affect: normal affect Objective Data Vital Signs Vital Signs: Vital Signs - 24 hr 06/13/24 10:45 06/13/24 12:02 06/13/24 12:15 Temperature Pulse Rate 83 91 84 Respiratory Rate 19 20 16 Blood Pressure Pulse Oximetry 100 99 100 Oxygen Delivery 06/13/24 16:17 06/13/24 19:00 06/13/24 21:22 Temperature 97.8 F Pulse Rate 88 85 102 H Respiratory Rate 20 18 15 Blood Pressure 114/69 117/51 L 110/56 L Pulse Oximetry 99 100 99 Oxygen Delivery 06/13/24 22:00 06/14/24 00:23 06/14/24 04:00 Temperature 97.8 F 98.2 F 98.3 F Pulse Rate 102 H 102 H 111 H Respiratory Rate 20 22 H 22 H Blood Pressure 118/63 129/59 L 143/58 H Pulse Oximetry 97 95 92 Oxygen Delivery 06/14/24 08:20
[2024-06-14 10:24] LABS: Folic Acid > 20.0 ng/mL (2.76->20)
[2024-06-14 12:00] VITALS: BP 107/76; PULSE 107; RESP 18; TEMP 36.6; O2SAT 98
[2024-06-14 12:02] LABS: Glucose Point of Care 132 mg/dl (65-105)
--- NOTE | 2024-06-14 14:03 | PM.DS ---
DS: Admitting Diagnosis Discharge Date 06/14/2024 Admitting Diagnosis Dislocation of prosthetic knee joint, Arterial insufficiency of lower extremity, Lower extremity edema DS: Discharge Diagnosis Discharge Diagnosis (1) Dislocation of prosthetic knee joint: Qualifiers: Encounter type: subsequent encounter Qualified Code(s): T84.028D - Dislocation of other internal joint prosthesis, subsequent encounter; Z96.659 - Presence of unspecified artificial knee joint Code(s): T84.028A - Dislocation of other internal joint prosthesis, initial encounter; Z96.659 - Presence of unspecified artificial knee joint Status: Acute (2) Arterial insufficiency of lower extremity: Code(s): I73.9 - Peripheral vascular disease, unspecified Status: Acute (3) Chronic alcohol abuse: Code(s): F10.10 - Alcohol abuse, uncomplicated Status: Acute (4) Hyponatremia: Code(s): E87.1 - Hypo-osmolality and hyponatremia Status: Acute (5) Leukocytosis: Qualifiers: Leukocytosis type: unspecified Qualified Code(s): D72.829 - Elevated white blood cell count, unspecified Code(s): D72.829 - Elevated white blood cell count, unspecified Status: Acute (6) Elevated INR: Code(s): R79.1 - Abnormal coagulation profile Status: Acute (7) Multiple falls: Code(s): R29.6 - Repeated falls Status: Acute (8) Chronic anticoagulation: Code(s): Z79.01 - terminal make up operator (current) use of anticoagulants Status: Acute DS: Summary Hospital Course Hospital Course: Patient is a 78-year-old male who presents to the ER with left-sided knee and pain. He reports he has a history of AFib, cardiac surgery, left knee replacement, gout, and congestive heart failure. Patient reports he drinks alcohol every day. He reports he went to [facility] on Sunday for evaluation of a sudden onset left knee, left calf pain and swelling. Patient also endorses a bloated abdomen, coughing up sputum, and falls with the most recent being last Sunday (6 days ago) when he landed on his left knee after he rolled out of bed. He endorses his left leg pain feels like a charley horse and has caused him to stop in his tracks at times. Patient denies chest pain, shortness a breath, or other signs/symptoms of illness. 06/13: Ortho team performed left knee manually reduced with traction and countertraction. Palpable reduction felt. Postreduction radiographs confirmed alignment. 06/14: Patient underwent PT OT. Was able to walk with assistance. Close reduction of the left knee dislocation was performed yesterday. Currently patient and is in the left knee immobilizer. Ortho cleared the patient to discharge and follow up with them. Today we arranged home health care for the patient since the patient's requesting help. Patient has a history of valvular replacement. Unfortunately patient is not able to tell whether it is a mechanical or bioprosthetic. We continued all his home medication including Eliquis 5 mg p.o. b.i.d. and advised to follow-up with his vascular surgeon, Cardiology and PCP in regards to further continuation of the anticoagulants. Limited study. Ankle-brachial indices could not be performed. Toe brachial indices below normal limits consistent with peripheral arterial disease. Status at Discharge Cognitive/behavioral status at discharge: Stable Time Spent with Patient Time attestation: Total time spent providing and/or coordinating discharge services: 45 minute DS: Data Data Completed and Pending Labs on day of discharge: Labs from last 24 hours 06/14/24 06/14/24 06/14/24 11:59 06:26 06:00 WBC 14.6 H RBC 3.69 L Hgb 12.9 L Hct 37.0 L MCV 100.3 H MCH 35.0 H MCHC 34.9 RDW 13.8 Plt Count 118 L MPV 12.0 H Immature Gran % (Auto) 0.5 Neut % (Auto) 82.1 H Lymph % (Auto) 10.4 L [place] % (Auto) 6.9 Eos % (Auto) 0.0 Ba
== END 2024-06-14 14:45 | disposition home health service (06) ==
LOC: ANHED 19:30 → ANH3MEDSUR 21:56
PROVIDERS: Admitting Provider Internal Medicine; Emergency Provider Registered Nurse; PCP Internal Medicine; Visit Provider General Practice
DX: T84.023A Instability of internal left knee prosthesis, initial encounter (principal); M25.562 Pain in left knee; Z96.652 Presence of left artificial knee joint; W06.XXXA Fall from bed, initial encounter; I73.9 Peripheral vascular disease, unspecified; R60.0 Localized edema; E87.1 Hypo-osmolality and hyponatremia; R29.6 Repeated falls; D72.829 Elevated white blood cell count, unspecified; R79.1 Abnormal coagulation profile; I25.10 Atherosclerotic heart disease of native coronary artery without angina pectoris; I11.0 Hypertensive heart disease with heart failure; I50.9 Heart failure, unspecified; I48.20 Chronic atrial fibrillation, unspecified; M10.9 Gout, unspecified; F10.10 Alcohol abuse, uncomplicated; Z95.1 Presence of aortocoronary bypass graft; Z95.4 Presence of other heart-valve replacement; Z79.01 Long term (current) use of anticoagulants
CPT/HCPCS: 27550; 27552; 36415; 71046; 71275; 73560; 73564; 76705; 80048; 80053; 81003; 82607; 82746; 82948; 83605; 83690; 83735; 84100; 84484; 85025; 85380; 85610; 85730; 93005; 93922; 93971; 96361; 96372; 96374; 96375; 97161; 97165; 99285; A9270; G0378; J2270; J3411; J3475; J7030; Q9967

== ENCOUNTER 2024-08-23 18:30 | Emergency (ER) | payer OTHER, SELFPAY ==
--- NOTE | ~2024-08-23 | XR_ITS ---
EXAMINATION: XR tibia fibula LT 2V DATE: 08/23/2024 21:09 INDICATION: Left lower limb injury. TECHNIQUE: 2 views of left tibia and fibula on 4 radiographs were obtained. COMPARISON: Left knee radiographs 06/13/2024 FINDINGS: There is a total left knee arthroplasty in near-anatomic alignment. No periprosthetic lucen cy to suggest loosening or infection. No acute fracture. There is an old healed fracture of femoral d iaphysis. There is heterotopic ossification distal to medial malleolus. There is mild midfoot osteoar thritis. There are enthesophytes at the posterior and plantar aspects of calcaneal tuberosity. IMPRESSION: 1. No acute fracture. 2. Total left knee arthroplasty in near-anatomic alignment. Reviewed, dictated and finalized at location [facility]
[2024-08-23 18:47] VITALS: BP 113/62; PULSE 96; RESP 18; TEMP 36.6; O2SAT 96
--- NOTE | 2024-08-23 19:21 | PC.NURSE ---
Report received from GEENA Carrasquillo. Assumed care of patient at this time.
--- NOTE | 2024-08-23 20:57 | ED.FALL ---
HPI - Fall General Chief Complaint: Fall Stated Complaint: Fall, leg lac, etoh Time Seen by Provider: 08/23/24 18:45 History of Present Illness HPI Narrative: Patient is a 79-year-old male whom I have cared for recently (within the past two months). He reports he was walking this evening, tripped and fell. Patient is unsure what he cut his left lower extremity, but has an approximately 5 in linear laceration there. He smells of alcohol and endorses drinking prior to his fall. Patient denies any pain, uncontrolled bleeding, or light-headedness. He does report he is on blood thinners for a DVT. Related Data Home Medications Medication Instructions Recorded Confirmed allopurinol 300 mg tablet 300 mg PO DAILY 09/02/21 06/13/24 atorvastatin 20 mg tablet 20 mg PO DAILY 09/02/21 06/13/24 furosemide 40 mg tablet (Lasix) See Rx Instructions .Route .COMPLEX 09/02/21 06/13/24 metoprolol succinate 25 mg 25 mg PO DAILY 09/02/21 06/13/24 tablet,extended release 24 hr spironolactone 25 mg tablet 25 mg PO DAILY 09/02/21 06/13/24 apixaban 5 mg tablet (Eliquis) 5 mg PO BID 06/13/24 06/13/24 Allergies Allergy/AdvReac Type Severity Reaction Status Date / Time No Known Allergies Allergy Verified 08/23/24 21:35 Review of Systems Review of Systems: All systems reviewed & are unremarkable except as noted in HPI and below PMFSH Past Medical History Medical History Arterial insufficiency of lower extremity CAD (coronary artery disease) 80% stenosis LAD CHF (congestive heart failure) Right heart catheterization proximally 2016 demonstrated severe mitral valve regurgitation with preserved ejection fraction, mild pulmonary hypertension, and single-vessel coronary disease Chronic a-fib Chronic anticoagulation Hypertension Hyponatremia Pulmonary hypertension Mild Severe mitral valve regurgitation Surgical History Surgical History History of mitral valve repair History of right heart catheterization Performed by Dr. Sapp approximately 2017 performed due to severe mitral valve regurgitation with flail posterior leaflet. Also patient had 80% stenosis of LAD History of tonsillectomy Hx of CABG Status post cataract extraction of both eyes with insertion of intraocular lens Social History Social History Social History: Patient lives with his they have been for 57 years. They raised 2 daughters. 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 He still plays golf on a weekly basis. Patient has chronic heavy alcohol (beer) use for many decades. Patient is a lifelong nonsmoker. Code status: Full code Surrogate decision maker: Smoking status: Never smoker Alcohol intake: current Alcohol use details: He drinks greater than 20 beers a week. Do You Feel Safe in your Home?: Yes Lack of Transportation: No Lack of Food: Never True Current Housing: I Have Housing Concerned About Future Housing: No Difficulty Paying Gas/Electric Bills: No Difficulty Paying for Meds: No Currently Unemployed: No Education: High School Diploma/GED Difficulty w/ Childcare or Family Care: No Additional living arrangements comments: He lives with his . Spiritual care concerns: No Exam Narrative: GENERAL: Well appearing, well-nourished, non-toxic, in no acute distress. HEAD: Normocephalic, atraumatic. NECK: Supple. No adenopathy, no masses. RESPIRATORY: Airway patent, respirations nonlabored. Clear to auscultation bilaterally, no rales, rhonchi, wheezing. CARDIOVASCULAR: Regular rate and rhythm without murmurs, rubs, or gallops. Peripheral pulses 2+ and equal bilaterally. ABDOMINAL: Soft, nontender, nondistended, no hepatosplenomegaly. Normoactive BS. MUSCULOSKELETAL: Moves all extremities. Strength/ROM intact without gross deformities. SKIN: Warm, dry, normal color. No rashes. Approximately 5 in long laceration on patient's left lower extremity, wound continues to ooze but bleeding is controlled. NEURO: A&O X3. Speech clear. Cranial nerves II-XII grossly intact. No ataxic movements. PSYCHIATRIC: Appropriate mood and affect. Normal interaction. Course Vital Signs Vital signs: Vital Signs Temperature 36.6 C 08/23/24 18:47 Pulse Rate 96 08/23/24 18:47 Respiratory Rate 18 08/23/24 18:47 Blood Pressure 113/62 08/23/24 18:47 Pulse Oximetry 96 08/23/24 18:47 Temperature 36.6 C 08/23/24 18:47 Pulse Rate 88 08/23/24 21:34 Respiratory Rate 17 08/23/24 21:34 Blood Pressure 121/60 08/23/24 21:34 Pulse Oximetry 100 08/23/24 21:34 Procedures Laceration Laceration 1: Date: 08/23/24 Time: 21:30 Site: lower extremity Side (If applicable): left Size (cm): 17 Description: linear and other Depth: simple, single layer Local Anesthetic: lidocaine 1% and with epi Amount of anesthesia used (mL): 15 Pre-repair: irrigated extensively and deep structures intact ====== Skin Level ====== Skin layer closed with: nylon Size (cm): 3-0 Number of sutures: 24 Technique: simple, interrupted ====== Subcutaneous Layer ====== ====== Muscle Layer ====== ====== Tendon Layer ====== MDM - Fall MDM Narrative Medical decision making narrative: Patient is a 79-year-old male whom I have cared for recently (within the past two months). He reports he was walking this evening, tripped and fell. Patient is unsure what he cut his left lower extremity, but has an approximately 5 in linear laceration there. He smells of alcohol and endorses drinking prior to his fall. Patient denies any pain, uncontrolled bleeding, or light-headedness. He does report he is on blood thinners for a DVT. Labs Ordered: None needed Imaging Ordered: L tib/fib fracture Results: No acute abnormalities or fracture on XR Diagnosis: Laceration Patient Education/Shared MDM: It is unclear when patient's last tetanus shot was so it was administered in the ER. Patient's wound was numbed with 1% lidocaine with epinephrine. His wound was irrigated extensively with normal saline. Twenty-four sutures were placed in patient's left lower extremity with 3.0 ethilon sutures. The wound approximated well, although the sutures at a fair amount of tension due to his thick skin and baseline swollen lower extremities. Patient strongly advised to not touch the sutures after they are placed. Wound was irrigated extensively again once it was closed. Dressing placed on patient's wound covering the sutures. Advised patient to follow-up with his primary care provider in 2-3 days to ensure the wound is healing. Patient was advised to have his sutures removed in 14-21 days. He should keep this sutures covered with a dressing while they are in. Patient and his verbalized understanding and are in agreement with plan. 2300-Patient is in agreement with current treatment plan. All questions answered. Vital signs stable at time of discharge. Differential Diagnosis Differential diagnosis: Likely other (laceration, open fracture, LLE edema, cellulitis) Imaging Data Attestation: I personally reviewed and interpreted this imaging study as follows: Radiologist's impression: Impressions Tibia/Fibula X-Ray 08/23/24 21:14 IMPRESSION: 1. No acute fracture. 2. Total left knee arthroplasty in near-anatomic alignment. Discharge Plan Discharge Clinical Impression: Laceration of lower leg, left, Lower extremity edema, Fall Patient Disposition: Home, Self-Care Condition: Stable Instructions: Antibiotic Form, Laceration (ED) Additional Instructions: Please return to the ER with an worsening symptoms. Follow-up with primary care provider in the next 2-3 days. Take all medications as prescribed. Have sutures removed in 14-21 days. Prescriptions: No Action allopurinol 300 mg Tablet 300 mg PO DAILY furosemide [Lasix] 40 mg Tablet See Rx Instructions .ROUTE .COMPLEX Rx Instructions: 20 mg orally every other day atorvastatin 20 mg Tablet 20 mg PO DAILY spironolactone 25 mg Tablet 25 mg PO DAILY metoprolol succinate 25 mg tablet extended release 24 hr 25 mg PO DAILY Eliquis 5 mg tablet 5 mg PO BID Follow-up/Referrals: Tristan,Abelino Savage MD [Primary Care Provider] -
--- NOTE | 2024-08-23 21:27 | PC.NURSE ---
SYSTEMS DEVELOPMENT MANAGER in room with patient at this time.
[2024-08-23] MEDS: TETANUS,DIPHTHERIA,AC PERTUSSIS ADULT (0.5 ML) BOOSTRIX IM (21:32)
[2024-08-23 21:34] VITALS: BP 121/60; PULSE 88; RESP 17; O2SAT 100
[2024-08-23 23:46] VITALS: BP 124/66; PULSE 100; RESP 16; O2SAT 98
== END 2024-08-23 23:48 | disposition home or self-care (01) ==
PROVIDERS: Emergency Provider Registered Nurse; PCP Internal Medicine
DX: S81.812A Laceration without foreign body, left lower leg, initial encounter (principal); R60.0 Localized edema; Z23 Encounter for immunization; I25.10 Atherosclerotic heart disease of native coronary artery without angina pectoris; I50.9 Heart failure, unspecified; I11.0 Hypertensive heart disease with heart failure; I48.20 Chronic atrial fibrillation, unspecified; I27.20 Pulmonary hypertension, unspecified; I34.0 Nonrheumatic mitral (valve) insufficiency; Z95.1 Presence of aortocoronary bypass graft; Z96.652 Presence of left artificial knee joint; Z96.1 Presence of intraocular lens; Z98.42 Cataract extraction status, left eye; Z98.41 Cataract extraction status, right eye; Z79.01 Long term (current) use of anticoagulants; Z79.899 Other long term (current) drug therapy; W01.119A Fall on same level from slipping, tripping and stumbling with subsequent striking against unspecified sharp object, initial encounter
CPT/HCPCS: 12005; 73590; 90471; 90715; 99283

== ENCOUNTER 2024-10-29 12:37 | Emergency (ER) | payer OTHER, SELFPAY ==
--- NOTE | ~2024-10-29 | XR_ITS ---
EXAMINATION: XR hand RT min 3V DATE: 10/29/2024 13:21 INDICATION: Right hand injury. TECHNIQUE: 3 views of right hand were obtained. COMPARISON: None. FINDINGS: There is an old healed fracture deformity of distal radius. There is palmar dislocation of ulna with respect to distal radius. There is heterotopic ossification adjacent to the distal ulna. No acute fracture. There is mild osteoarthritis of triscaphe joint, first carpometacarpal joint, and so me of the metacarpophalangeal joints and interphalangeal joints. IMPRESSION: 1. 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 2. Polyarticular osteoarthritis. Reviewed, dictated and finalized at location A. IESEL PRODUCT DEVELOPMENT MANAGER IMPRESSION: 1. 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 2. Polyarticular osteoarthritis.
--- NOTE | ~2024-10-29 | CT_ITS ---
CT head without contrast Indication: Status post fall COMPARISON: 09/02/2021 Technique: Serial scans were obtained through the brain without the administration of contrast. Dose reduction technique was used on this scan by utilizing automated exposure control and iterative recon struction technique. The dose-length product (DLP) was 605.33 mGy-cm. Findings: There is no evidence of intracranial hemorrhage, mass lesion, or acute infarct. The ventri cles and subarachnoid spaces are dilated, consistent with mild atrophy. Low attenuation regions are seen within the periventricular white matter bilaterally, likely representing changes from chronic mi crovascular ischemic disease. There is no evidence of edema, mass effect or midline shift. The visu alized paranasal sinuses and mastoid air cells are clear. There is soft tissue swelling/hematoma with laceration of the forehead. Impression: No intracranial hemorrhage, mass, or acute infarct. Atrophy and chronic white matter changes, as above. Soft tissue swelling/hematoma with laceration at the forehead. Reviewed, dictated and finalized at [facility]. MANAGEMENT DIRECTOR Impression: No intracranial hemorrhage, mass, or acute infarct. Atrophy and chronic white matter changes, as above. Soft tissue swelling/hematoma with laceration at the forehead.
--- NOTE | ~2024-10-29 | CT_ITS ---
EXAMINATION: CT cervical spine wo con DATE: 10/29/2024 13:17 INDICATION: Fall with head injury TECHNIQUE: Computed tomography (CT) of the cervical spine was performed without intravenous contrast. Automated exposure control and iterative reconstruction technique were employed. The dose-length pro duct was 500.17 mGy-cm. COMPARISON: None FINDINGS: Mild cervicothoracic dextrocurvature. 3 mm anterolisthesis C7 on T1. Severe osteoarthritis at the nora antoaxial articulation. Chronic appearing erosions at the base of the dens. Vertebral body heights ar e normal. No fracture. Multilevel severe disc height loss at C3-C4, C5-C6 and C7-T1, moderate disc he ight loss at C4-C5, C6-C7 and T2-T3 and mild disc height loss at C2-C3 and T1-T2. Disc bulges and dis c osteophyte complexes throughout the cervical spine resulting in mild to moderate central canal sten osis at C3-C4 and C5-C6 and mild neural from stenosis at remaining cervical levels. Severe multilevel cervical uncovertebral and facet osteoarthritis. There is also multilevel neural foraminal stenosis, moderate to severe bilaterally at C3-C4 and on the left at C4-C5, mild on the right at C4 C4, bilate rally at C2-C3 and C6-C7 and moderate at the remaining neural foramina from C4-C5 through C7-T1. Prom inent atherosclerotic calcifications at the bilateral carotid bulbs which appears hemodynamically sig nificant at least on the left. Visualized cervical soft tissues are otherwise unremarkable. Mild pulm onary edema and posterior pleural effusions at the visualized portions of the bilateral upper lungs. IMPRESSION: 1. Severe cervical spondylosis with no acute osseous abnormality. 2. Atherosclerotic calcifications at the bilateral carotid bulbs which appears likely hemodynamically significant on the left. 3. Pulmonary edema and pleural effusions at the visualized portions of the upper lungs. Reviewed, dictated and finalized at location [facility]. [employer] IMPRESSION: 1. Severe cervical spondylosis with no acute osseous abnormality. 2. Atherosclerotic calcifications at the bilateral carotid bulbs which appears likely hemodynamically significant on the left. 3. Pulmonary edema and pleural effusions at the visualized portions of the uppe r lungs.
--- OUTSIDE RECORDS SUMMARY | 2024-10-29 12:41 | XMS_ITS | Patient Health Summary ---
Author Organization [facility] Address [address] [place] [address] Care Team Providers Care Stock Lifter Name Role Phone Abelino Hudson MD Primary Care Provider [phone] Note from [facility],non-owned Affiliates and Associated Physician Practices is amultiple site organization consisting of ambulatory clinics and hospital sitesin [place], [place], [place] and [place]. This disclosure is being madepursuant to the Care Everywhere program and may not contain all information available regarding this patient. Last updated 18.[facility] [place] Allergies No known active allergies Social History Tobacco Use Types Packs/Day Years Used Date Smoking Tobacco: Never Smokeless Tobacco: Never Tobacco Cessation:Counseling Given: Not Answered PHQ-2 Answer Date Recorded Patient Health Questionnaire-2 Score 0 08/05/2024 Sex and Gender Information Value Date Recorded Sex Assigned at Not on file Gender Identity Not on file Sexual Orientation Not on file Procedures * XR KNEE LEFT 4VW OR MORE(Performed 08/05/2024) Performed for Left knee pain, unspecified chronicity Results * XR Knee Left 4Vw or More (08/05/2024 8:38 AM CLINICAL QUALITY ASSURANCE ASSOCIATE) Anatomical Region Laterality Modality Lower Extremity Computed Radiogr aphy 08/05/2024 8:45 AM CLINICAL QUALITY ASSURANCE ASSOCIATE Impressions 08/05/2024 8:47 AM CLINICAL QUALITY ASSURANCE ASSOCIATE IMPRESSION: Total knee arthroplasty. > Interpreting Provider: Wilder Quach MD on 08/05/2024 8:47 AM Narrative 08/05/2024 8:47 AM CLINICAL QUALITY ASSURANCE ASSOCIATE PROCEDURE: XR KNEE LEFT 4VW OR MORE DATE/TIME OF EXAM: 08/05/2024 8:38 AM CLINICAL INFORMATION: None relevant/not provided if blank. Indication: M25.562: Left knee pain, unspecified chronicity Additional History: COMPARISON: None. FINDINGS: Total knee arthroplasty is demonstrated. The prosthetic components are intact. There is no periprosthetic lucency, acute fracture, or dislocation. There is a chronic healed fracture of the distal femoral shaft with residual deformity. There are 2 cerclage wires around the distal femoral shaft. There is a moderate effusion. There are vascular calcifications and a few additional soft tissue calcifications and/or foci of heterotopic ossification. Procedure Note Wilder Quach MD - 08/05/2024 PROCEDURE: XR KNEE LEFT 4VW OR MORE DATE/TIME OF EXAM: 08/05/2024 8:38 AM CLINICAL INFORMATION: None relevant/not provided if blank. Indication: M25.562: Left knee pain, unspecified chronicity Additional History: COMPARISON: None. FINDINGS: Total knee arthroplasty is demonstrated. The prosthetic components are intact. There is no periprosthetic lucency, acute fracture, ordislocation. There is a chronic healed fracture of the distal femoral shaft with residual deformity. There are 2 cerclage wires around the distal femoral shaft. There is a moderate effusion. There are vascular calcificationsand a few additional soft tissue calcifications and/or foci of heterotopic ossification. IMPRESSION: Total knee arthroplasty. > Interpreting Provider: Wilder Quach MD on 08/05/2024 8:47 AM Katerine Dotson MD DIAGNOSTIC IMAGING [facility] Care Teams Stock Lifter Relationship Specialty Start Date End Date Abelino Hudson MD [address] [place] [id number] PCP - General Internal Medicine 07/16/24
--- OUTSIDE RECORDS SUMMARY | 2024-10-29 12:41 | XMS_ITS | Clinical Summary ---
Author Organization [facility] Address [address] [place] [address] Care Team Providers Care Party Bus Driver Name Role Phone Abelino Hudson MD Primary Care Provider [phone] Brody Chawla MD Unavailable [phone] Allergies No known active allergies Medications Acetaminophen 500 MG Cap Take 1,000 mg by mouth every 6 (six) hours as needed for Pain. 09/11/20 19 Active polyethylene glycol (GLYCOLAX) 17 GM/SCOOP powder Take 17 g by mouth daily. Dissolve powder in 240 mL water Active apixaban (ELIQUIS) 5 MG tabletIndication s:Acute deep vein thrombosis (DVT) of femoral vein of right lower extremity ([facility]/HCC HHS/HCC) TAKE 1 TABLET BY MOUTH TWICE A DAY 180 tablet 3 05/30/20 23 Active metoprolol succinate ER (TOPROL-XL) 25 MG 24 hr tabletIndication s:Atrial fibrillation (CMS/HCC HHS/HCC) TAKE 1 TABLET BY MOUTH ONCE DAILY WITH SUPPER. DO NOT TAKE IF HEART RATE LESS THAN 60. 90 tablet 1 05/02/20 24 Active spironolactone (ALDACTONE) 25 MG tabletIndication s:Edema, unspecified type take 1 tablet by mouth every day 90 tablet 1 05/02/20 24 Active atorvastatin (LIPITOR) 40 MG tabletIndication s:Coronary artery disease involving tangirnaq coronary artery of tangirnaq heart without angina pectoris Take 1 tablet (40 mg total) by mouth nightly at bedtime. 90 tablet 3 05/09/20 24 025 Active allopurinol (ZYLOPRIM) 300 MG tabletIndication s:Gout take 1 tablet by mouth every day 90 tablet 06/16/20 24 Active sacubitril-valsa rtan (ENTRESTO) 24-26 MG tablet Take 1 tablet by mouth 2 (two) times daily. 180 tablet 4 07/17/20 24 Active mupirocin (BACTROBAN) 2 % ointmentIndicati ons:Peripheral vascular disease of lower extremity with ulceration (CMS/HCC HHS/HCC) Apply to wound with dressing changes 22 g 10/15/19 25 Active furosemide (LASIX) 40 MG tabletIndication s:Chronic systolic congestive heart failure (CMS/HCC HHS/HCC) TAKE 1 TABLET BY MOUTH EVERY DAY 90 tablet 10/24/19 25 Active furosemide (LASIX) 40 MG tabletIndication s:Chronic systolic congestive heart failure (CMS/HCC HHS/HCC) Take 1 tablet (40 mg total) by mouth daily. 30 tablet 2 07/30/20 24 025 Discontinued doxycycline monohydrate 100 MG capsuleIndicatio ns:Peripheral vascular disease of lower extremity with ulceration (CMS/HCC HHS/HCC) Take 1 capsule (100 mg total) by mouth 2 (two) times daily for 10 days. Take as directed with snack/meal and at least 8 oz. Of liquid. 20 capsule 09/30/19 25 025 mupirocin (BACTROBAN) 2 % ointmentIndicati ons:Peripheral vascular disease of lower extremity with ulceration (CMS/HCC HHS/HCC) Apply to wound with dressing changes 22 g 10/07/19 25 025 Discontinued(Re order) Active Problems Problem Noted Date Diagnosed Date Tachycardia 10/24/2023 Assessment & Plan (10/24/2023 1:30 PM FOOD SAFETY TECHNICIAN): He was noted to be tachycardic on exam. EKG in office shows normal sinus rhythm with PACs. Nonrheumatic mitral valve stenosis 02/16/2023 Status post transcatheter ao rtic valve replacement (TAVR) using bioprosthesis 10/23/2022 Assessment & Plan (10/24/2023 1:31 PM FOOD SAFETY TECHNICIAN): He is status post TAVR and he will get his 1 yr echo in December. Continue antibiotic prophylaxis prior to dental procedures. Continue yearly echoes per primary environmental scientists. Superior mesenteric artery stenosis ([facility]/HCC [facility]) 10/23/2022 Overview (10/23/2022): CT Severe aortic valve stenosis 10/11/2022 Nonrheumatic aortic valve stenosis 04/19/2022 Assessment & Plan (01/13/2023 2:31 PM CDT): Status post transfemoral TAVR. 1-month echo shows well functioning bioprosthetic aortic valve. Repeat echo in one year. Continue antibiotic prophylaxis prior to dental procedures. Assessment & Plan (10/19/2022 11:21 AM FOOD SAFETY TECHNICIAN): S/p TAVR on 10/11/22 Post op echo - Revealed a mean gradient of 13 mm per mercury EKG today revealed sinus rhythm christianne alone continued Dental prophylaxis prior to any dental procedure cleaning Repeat echo in 1 month prior to follow-up with Dr. Day Assessment & Plan (08/15/2022 8:52 AM FOOD SAFETY TECHNICIAN): Given his history of prior open heart surgery and his echo was consistent with severe aortic valve stenosis, I think that transcatheter aortic valve replacement is a good option for him. Is unclear whether or not he is having symptoms, I explained that risk of sudden cardiac potentially with untreated severe aortic valve stenosis. He is agreeable to proceed with evaluation for TAVR. I did discuss the procedure of transcatheter aortic valve replacement to the patient. I explained the procedure in detail including transfemoral access with placement of a balloon mounted valve inside the existing aortic valve. I explained the risks and benefits that include but are not limited to: bleeding, infection, vascular complication (10%), cerebrovascular accident (3 to 5%), permanent pacemaker placement (10%), myocardial infarction (1 to 2%), aortic root rupture (1 2%), valve embolization (1-2%) and even (1 to 2%). I did explain to the patient that if we were to proceed with transcatheter aortic valve replacement, we would have to proceed with the TAVR work-up that includes cardiac catheterization, CT scan and surgical evaluation. Chronic systolic congestive heart failure ([facility]) 05/02/2021 Aortic atherosclerosis 05/02/2021 S/P CABG (coronary artery bypass graft) 09/09/20 Overview (09/25/2019): Last Assessment & Plan: S/p bio MV replacement (31 mm MAGNA) [repair was aborted) and CABG x 1 (LION- LAD) on 08/26 See mitral valve replacement problem (above) Paroxysmal atrial fibrillation ([facility]) 09/04/2019 Overview (09/25/2019): Last Assessment & Plan: Ongoing ATC telemetry--NSR at present Amiodarone 400 mg daily continues--Daily EKG checks for QTc TTE: EF 71%, no effusion, mod RV reduction Metoprolol 12.5 BID Assessment & Plan (10/24/2023 1:23 PM FOOD SAFETY TECHNICIAN): He is in normal sinus rhythm. Continue metoprolol and apixaban. Assessment & Plan (08/15/2022 8:54 AM FOOD SAFETY TECHNICIAN): He is in normal sinus rhythm. Continue metoprolol and apixaban. 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 Continue medical management of coronary artery disease. Assessment & Plan (08/15/2022 8:53 AM FOOD SAFETY TECHNICIAN): He has a history of coronary artery disease with coronary artery bypass grafting. We will evaluate this on cardiac catheterization. Continue atorvastatin S/P MVR (mitral valve replacement) 08/06/2019 Overview (09/25/2019): Overview: Pre-operative ECHO revealed preserved biventricular function, no significant tricuspid regurgitation, and severe mitral regurgitation due to P2 prolapse. Intra-op ECHO revealed evidence of normally functioning bio MV with MG=4 and no paravalvular leak on EPI 0.1 mcg/kg/min. Last Assessment & Plan: S/p bio MV replacement (31 mm MAGNA) [repair was aborted) and CABG x 1 (LION- LAD) on 08/26 Ongoing post op care & monitoring (telemetry, VS, medication changes, I &O, weights) Ongoing aspirin, beta-alina, statin--no lorelei related to hypotension at times Amiodarone therapy with daily EKG QTc checks Aggressive pulm toilet with diuresis (BID lasix & spironolactone) Ongoing discharge planning--see separate sternal drainage note. Cataract 12/12/2017 Chronic deep vein thrombosis (DVT) of right lower extremity ([facility]) 04/03/2017 Overview (02/06/2019): Annotation - [id number]: Annotation: Chronic deep vein thrombosis (DVT) of right lower extremity (I82.501); Impression - [id number] Abelino Hudson: Impression: Asymptomatic. Continue established treatment plan including control of risk factors. Additional Details: He is currently off blood thinners and seems to be doing well.; Description: Chronic deep vein thrombosis (DVT) of right lower extremity (I82.501) Decreased vision 04/03/2017 Osteoarthritis of right knee 01/25/2016 Claudication of right lower extremity 01/06/2016 Contracture of joint of finger of left hand 07/18 Gout 01/28/2013 Hypertension 01/28/2013 Assessment & Plan (10/24/2023 1:26 PM FOOD SAFETY TECHNICIAN): Blood pressure in the office is elevated. Encouraged home blood pressure monitoring. Continue antihypertensive therapy. Resolved Problems Problem Noted Date Diagnosed Date Resolved Date Localized swelling of right lower leg 03/10/2022 10/23/2023 Bronchitis 05/24/2021 11/07/2021 Stage 2 chronic kidney disease 05/02/2021 10/23/2022 Acute renal failure with acu te tubular necrosis superimposed on stage 2 chronic kidney disease 08/27/2019 05/02/2021 Overview (09/25/2019): Overview: Pre-op Roll Coverer 0.89 w/ estimated GFR 89.9 (CKD II). Last Assessment & Plan: Continue BID lasix and daily aldactone , at present Creatinine recovering - down to 1.41 last night UO approx 700 mls over past 24 hours Pt below pre op weight by approx 6 kg Acute blood loss anemia 08/26/2019 02/0 02/2023 Overview (09/25/2019): Overview: Pre-op H/H 14.7/42.7. Has received 2U PRBCs intra-op. Last Assessment & Plan: Expected, related to post op ABLA Stable, daily CBC No indication for transfusion today Acid reflux disease 04/21/2013 09/12/20 22 Encounters Date Type Department Care Team Description 10/29/2024 Telephone [facility] Family & Internal Medicine [address] [phone] Abelino Hudson MD Referral 10/28/2024 8:06 AM [facility] Hospital Encounter [facility] [place] [place] [address] Rashmi Yo APNP Arrived 10/28/2024 Orders Only [facility] [place] [place] [address] Rashmi Yo APNP 10/28/2024 Travel 10/21/2024 9:34 AM FOOD SAFETY TECHNICIAN - 10/21/2024 11:59 PM FOOD SAFETY TECHNICIAN Hospital Encounter [facility] [address] Rashmi Yo APNP Discharge Disposition: Home or Self Care (Routine Discharge) 10/21/2024 8:11 AM FOOD SAFETY TECHNICIAN - 10/21/2024 9:33 AM FOOD SAFETY TECHNICIAN Hospital En[facility] [place] [address] Rashmi Yo, VERONA Discharge Disposition: Home or Self Care (Routine Discharge) 10/21/2024 Travel 10/15/2024 8:26 AM FOOD SAFETY TECHNICIAN - 10/15/2024 11:59 PM FOOD SAFETY TECHNICIAN Hospital Encounter [facility] [place] [address] Rashmi Yo, EVRONA Discharge Disposition: Home or Self Care (Routine Discharge) 10/15/2024 Orders Only [facility] [place] [address] Rashmi Yo APNP 10/15/2024 Travel 10/07/2024 8:55 AM FOOD SAFETY TECHNICIAN - 10/07/2024 11:59 PM FOOD SAFETY TECHNICIAN Hospital Encounter [facility] [place] [address] Rashmi Yo APNP Discharge Disposition: Home or Self Care (Routine Discharge) 10/07/2024 Telephone [facility] Family & Internal Medicine [address] [address] Abelino Hudson MD Referral 10/07/2024 Orders Only [facility] [place] [address] Rashmi Yo APNP 10/07/2024 Travel 09/30/2024 7:54 AM FOOD SAFETY TECHNICIAN - 09/30/2024 11:59 PM FOOD SAFETY TECHNICIAN Hospital Encounter [facility] [place] [address] Rashmi Yo APNP Discharge Disposition: Home or Self Care (Routine Discharge) 09/30/2024 Orders Only [facility] [place] [address] Rashmi Yo APNP 09/30/2024 Travel 09/25/2024 10:40 AM FOOD SAFETY TECHNICIAN Office Visit [address] [phone] Abelino Hudson MD Wound (F/u wound on LT ferraro) 09/25/2024 Travel 09/15/2024 11:20 AM FOOD SAFETY TECHNICIAN Office Visit [address] [phone] Abelino Hudson MD Wound (Wound on LLE) 09/15/2024 Travel 09/11/2024 9:20 AM FOOD SAFETY TECHNICIAN Office Visit [address] [address] Abelino Hudson MD Follow Up; Pneumonia; Wound (F/U LLE wound) 09/11/2024 Travel 09/04/2024 9:00 AM FOOD SAFETY TECHNICIAN Allied Health/Nurse Visit [address] [address] Abelino Hudson MD Allied Health Visit (wound) 09/04/2024 Travel 08/28/2024 10:40 AM FOOD SAFETY TECHNICIAN Office Visit [address] [address] Abelino Hudson MD ER F/U ([facility] ER f/u 08/23/24 for fall); Rib Pain (Patient c/o rib pain when coughing starting since fall) 08/28/2024 Travel 08/25/2024 Patient Outreach [address] [address] Pari Crowell RN ER F/U ([facility] ER 08/23/2024) 08/25/[address] [address] Abelino Hudson MD ER F/U (fall) 08/23/2024 Scan [employer] HEALTH INFO SRVCS Scanned, Doc Med [facility] Image (SCAN) 08/12/[address] [address] Abelino Hudson MD Lab Results 08/08/2024 Scan [facility], [address] [address] Scanned, Doc Pccl 08/06/2024 9:00 AM FOOD SAFETY TECHNICIAN Office Visit [address] [address] Abelino Hudson MD Follow Up; CHF; Pneumonia (Pt states still coughing up brown sputum, having increased sob with ambulation/) 08/06/2024 Travel 08/04/2024 Telephone [facility] Internal [address] [address] Abelino Hudson MD Referral 07/30/2024 7:20 AM FOOD SAFETY TECHNICIAN Office Visit [address] [address] Abelino Hudson MD Follow Up; Hypertension; Coronary Artery Disease; Atrial Fibrillation; Pneumonia (F/u PNA, patient is still experiencing fatigue and SOB. ); Knee Swelling (Patient c/o RT knee swelling and pain behind B/L knees ) 07/30/2024 Travel from Last 3 Months Immunizations Name Administration Dates Next Due Abrysvo Respiratory Syncytia l Virus (RSV) 0.5 mL, PF 07/19/2024 FLUAD (IIV, Trivalent, 0.5 M L Pre-filled Syringe) 07/19/2024 Fluzone High Dose - >Age 65 (Prefilled Syringe) 05/31/2022,06/21/2021,07/08/2020 Influenza (Generic) 07/10/2015, 4,06/17/2013,2012 Influenza Adult (Generic) 05/15/2023,10/2018,07/03/2018,2016,07/06/2016 MODERNA COVID-19 (POTLINE MONITOR MEAGAN KEENAN), MRNA, LNP-S, PF, 50 MCG/ 0.25 ML DOSE 08/21/2021 PFIZER COVID-19 (ORIGINAL FORMULATION, PURPLE CAP) mRNA, LNP-S, PF, 30 MCG/0.3 ML DOSE 12/04/2020,11/12/2020 PFIZER COVID-19 BIVALENT (12 +) mRNA, LNP-S, PF, 30 MCG/0.3 ML DOSE 08/08/2022 Pneumococcal (Pneumovax 23) 10/30/2019 Pneumococcal (Prevnar 13) 07/06/2016 Pneumococcal (Prevnar 20) 12/26/2021 Shingrix 06/27/2023,04/18/2023 Tdap (Adacel) 09/02/2021 Tdap (Generic) 08/23/2024 Family History Medical History Relation Comments Heart Attack Brother Heart Disease Brother Heart Attack Father Heart Disease Father Relation Status Comments Brother Daughter 1 Alive Daughter 2 Alive Father (Age 70s) of heart attack Mother (Age 88) of lung symone bello Social History Tobacco Use Types Packs/Day Years Used Date Smoking Tobacco: Never Passive Smoke Exposure: Never Smokeless Tobacco: Never Tobacco Cessation:Counseling Given: Not Answered Comments:Non smoker Alcohol Use Standard Drinks/Week Comments Yes 35 (1 standard drink = 0.6 oz pu re alcohol) 4 cans of beer daily Humiliation, Afraid, Rape, and Kick questionnair e Answer Date Recorded Within the last year, have y ou been afraid of your partner or ex-partner? No 10/11/2022 Within the last year, have y ou been humiliated or emotionally abused in other ways by your partner or ex-partner? No Within the last year, have y ou been kicked, hit, slapped, or otherwise physically hurt by your partner or ex-partner? No 10/11/2022 Within the last year, have y ou been raped or forced to have any kind of sexual activity by your partner or ex-partner? No 10/11/2022 Overall Financial Resource Strain (CARDIA) Answe r Date Recorded How hard is it for you to pa y for the very basics like food, housing, medical care, and heating? Not hard at all 10/11/2022 PHQ-2 Answer Date Recorded Patient Health Questionnaire-2 Score 0 09/25/2024 Exercise Vital Sign Answer Date Recorde d On average, how many days pe r week do you engage in moderate to strenuous exercise (like a brisk walk)? 3 days 05/02/2021 On average, how many minutes do you engage in exercise at this level? 20 min 05/02/2021 Hunger Vital Sign Answer Date Recorded Within the past 12 months, y ou worried that your food would run out before you got the money to buy more. Never true 10/11/19 Within the past 12 months, t he food you bought just didn't last and you didn't have money to get more. Never true 10/11/2022 PRAPARE - Transportation Answer Date Re corded In the past 12 months, has l ack of transportation kept you from medical appointments or from getting medications? No 09/18 In the past 12 months, has l ack of transportation kept you from meetings, work, or from getting things needed for daily living? No 10/11/2022 Housing Stability Vital Sign Answer Kwaku e Recorded In the last 12 months, was t here a time when you were not able to pay the mortgage or rent on time? No 10/11/2022 In the last 12 months, how many places have you lived? 1 10/11/2022 In the last 12 months, was t here a time when you did not have a steady place to sleep or slept in a mcfp (including now)? No 10/11/2022 Sex and Gender Information Value Date Recorded Sex Assigned at Male 02/06/2019 8:24 AM CDT Legal Sex Male 5:37 PM CDT Gender Identity Male 02/06/2019 8:24 AM CDT Sexual Orientation Straight 02/06/2019 8: 24 AM CDT Last Filed Vital Signs Vital Sign Reading Time Taken Comments Blood Pressure 110/54 09/25/2024 11:07 AM FOOD SAFETY TECHNICIAN Pulse 76 09/25/2024 11:07 AM FOOD SAFETY TECHNICIAN Temperature 36.4 C (97.5 F) 09/25/2024 11:07 AM FOOD SAFETY TECHNICIAN Respiratory Rate 18 09/25/2024 11:0 7 AM FOOD SAFETY TECHNICIAN Oxygen Saturation 97% 09/25/2024 11: 07 AM FOOD SAFETY TECHNICIAN Inhaled Oxygen Concentration - - Weight 111.8 kg (246 lb 6.4 oz) 025 11:07 AM FOOD SAFETY TECHNICIAN Height 188 cm (6' 2 ) 09/25/2024 11:07 AM FOOD SAFETY TECHNICIAN Body Mass Index 31.64 09/25/2024 11:07 AM FOOD SAFETY TECHNICIAN Plan of Treatment Upcoming Encounters Date Type Department Care Team (Late st Contact Info) Description 11/03/2024 10:30 AM FOOD SAFETY TECHNICIAN Appointment [facility] [place] [address] Deja Orellana MD [address] [place] [phone] 11/05/2024 1:15 PM FOOD SAFETY TECHNICIAN Office Visit [facility], [address] [address] Deja Orellana MD [address] [place] [phone] 11/28/2024 11:15 AM CDT Office Visit [facility] [phone] Kerri Tinoco MD [facility] [address] [place] [phone] 12/30/2024 8:00 AM CDT [facility]ment [facility] [place] [address] Kerri Tinoco MD Three [facility] [address] [place] [phone] Health Maintenance Due Date Last Done Comments Hepatitis C 1963 Annual Medicare Wellness Visit 2012 DTaP, Tdap and Td Vaccines (3 - Td or Tdap) 08/23/2034 08/23/2024, 09/02/2021 Colorectal Cancer Screening Colonoscopy (10 Years) Discontinued 08/06/2019, Pneumococcal Vaccine: 65+ Years Completed 12/26/2021, 10/30/2019, 07/06/2016 Zoster Vaccines Completed 06/27/2023, 04/18/2023 COVID-19 Vaccine Completed 07/19/2024, 07/2023, 08/08/2022, Additional history exists Influenza Adult Completed 07/19/2024, 04/18, 05/31/2022, Additional history exists RSV Immunization or 60+ Years Completed 07/19/2024 PHQ-2 (Physician [place]) Completed 09/25/2024 Meningococcal B Vaccine Aged Out No l onger eligible based on patient's age to complete this topic Meningococcal Vaccine Aged Out No akua april eligible based on patient's age to complete this topic RSV Immunizations Under 20 Months Aged Out No longer eligible based on patient's age to complete this topic Goals Goal Patient Goal Type Associated Problems Recent Progress Patient-Stated? Author Patient will return to prior living situation and remain independent in ADLs upon discharge from hospital Lifestyle On track(2022 12:01 PM FOOD SAFETY TECHNICIAN) Stephanie Anne RN Establish Plan for Symptom Monitoring Lifestyle On track(2022 1:23 PM FOOD SAFETY TECHNICIAN) Penny Babin RN Note: HTN: Patient to monitor blood pressure daily and record readings and call provider with consistent readings >140/90. Patient will maintain a low sodium diet . Patient will call provider with any visual disturbances, headaches or dizziness. Patient to take all medications as prescribed. Monitor - verbalizes recognition of s/s wound infections Lifestyle On track(2022 1:24 PM FOOD SAFETY TECHNICIAN) Penny Babin RN Consistently take medications as Prescribed Lifestyle On track(2022 1:23 PM FOOD SAFETY TECHNICIAN) Penny Babin RN Medications - demonstrates understanding of how and when to take anticoagulants, dietary restrictions, and signs and symptoms to report to PCP Lifestyle On track(2022 1:24 PM FOOD SAFETY TECHNICIAN) Penny Babin RN Medical Devices Implanted Type Area Grease Press Helper Device Identifier Shelf Expiration Date Model / Serial / Lot Aortic 34mm (Tavr) Valve Implant- [id number] Implanted:Qty: 1 on 10/11/2022 by Basil Day MD Valve Implant Aorta [employer] 07/12/2024 [id number] / [id number] / Procedures Procedure Name Priority Date/Time Associated Diagnosis Comments USV VENOUS REFLUX LOW LT Routine 10/21/2024 11:09 AM FOOD SAFETY TECHNICIAN Peripheral vascular disease of lower extremity with ulceration (CMS/HCC HHS/HCC) Localized swelling, mass and lump, left lower limb USV ART REST W CHARLEY LOW EXT Routine 10/21/2024 11:06 AM FOOD SAFETY TECHNICIAN Peripheral vascular disease of lower extremity with ulceration (CMS/HCC HHS/HCC) CULTURE, TISSUE W/GRAM STAIN Routine 09/30/2024 10:02 AM FOOD SAFETY TECHNICIAN Peripheral vascular disease of lower extremity with ulceration (CMS/HCC HHS/HCC) IMAGE GENERIC 08/23/2024 COLLECTION VENOUS BLOOD VENIPUNCTURE Routine 07/30/2024 12:54 PM FOOD SAFETY TECHNICIAN Shortness of breath CBC W/DIFF AUTOMATED Routine 07/30/2024 12:53 PM FOOD SAFETY TECHNICIAN Shortness of breath COMPREHENSIVE METABOLIC PANEL Routine 07/30/2024 12:53 PM FOOD SAFETY TECHNICIAN Shortness of breath XR CHEST PA+LAT Routine 07/30/2024 8:09 AM FOOD SAFETY TECHNICIAN Shortness of breath COLONOSCOPY GENERIC (SCAN ORDER) Routine 08/06/2019 4:42 PM FOOD SAFETY TECHNICIAN from Last 3 Months or Most Recently Relevant to Health Maintenance Results * USV VENOUS REFLUX LOW LT (10/21/2024 11:09 AM FOOD SAFETY TECHNICIAN) Anatomical Region Laterality Modality Extremity Vascular Ultraso und 10/21/2024 10:0 1 AM FOOD SAFETY TECHNICIAN Narrative 10/22/2024 9:55 PM FOOD SAFETY TECHNICIAN VENOUS DUPLEX IMAGING LEFT LOWER EXTREMITY VASCULAR LAB Pat.Name: FAVIO TRAN.ID: [id number] .Date: 10/21/2024 : [id number], Keira gutierrez Exam Time: 10:01:00 AM Study Type:YELENA VS Venous Duplex Leg Lt Age: 11 1945,79Y Sex: M Sonogrphr: Francis Espino, T Pat. Stat.:Outpatient History / Clinical:left anterior ferraro ulcer Procedures: Malik scale, Color Doppler imaging, Doppler Spectral Analysis Race: W ++++++++++++++++++++++++++++++++++++ SUMMARY: ++++++++++++++++++++++++++++++++++++ The deep veins are patent on the left from groin to calf. There are chronic character venous defects seen in the left popliteal vein. Presence of reflux > 1 second duration is seen in the left popliteal vein. Reflux measurements obtained with patient supine in steep reverse Trendelenberg. CONCLUSION: There is no reflux (>1 sec) in the superficial veins. No evidence of acute deep vein thrombosis (DVT) in the femoral, popliteal, below knee veins. Evidence of left lower extremity chronic disease/reflux. There is no evidence of superficial vein thrombophlebitis (SVT) in the saphenous veins. ++++++++++++++++++++++++++++++++++++ MEASUREMENTS: ++++++++++++++++++++++++++++++++++++ REFLUX Left CFV CFV 0 sec Left Mid FV Mid FV 0 sec Left Pop V Pop V 2.4 sec Left SFJ GSV SFJ 7.2 mm GSV SFJ 0 sec Left Prox Thigh GSV Prox Thigh 6.5 mm GSV Prox Thigh 0 sec Left Dist Thigh/AK GSV Dist Thigh 6.1 mm GSV Dist Thigh 0 sec Left Prox Calf GSV Prox Calf 5.7 mm GSV Prox Calf 0.45 sec Left Prox SSV Prox 3.2 mm SSV Prox 0 sec <Electronic Signature> 10/22/2024 09:55 PM Wolf Crockett M.D. Procedure Note Wolf Crockett MD - 10/22/2024 VENOUS DUPLEX IMAGING LEFT LOWER EXTREMITY VASCULAR LAB Pat.Name: FAVIO TRAN.ID: [id number] .Date: 10/21/2024 Refer.: [id number], Keira gutierrez Exam Time: 10:01:00 AM Study Type:YELENA VS Venous Duplex Leg Lt Age: 11 1945,79Y Sex: M Sonogrphr: Francis Espino RVT Pat. Stat.:Outpatient History / Clinical:left anterior ferraro ulcer Procedures: Malik scale, Color Doppler imaging, Doppler Spectral Analysis Race: W ++++++++++++++++++++++++++++++++++++ SUMMARY: ++++++++++++++++++++++++++++++++++++ The deep veins are patent on the left from groin to calf. There are chronic character venous defects seen in the left popliteal vein. Presence of reflux > 1 second duration is seen in the left popliteal vein. Reflux measurements obtained with patient supine in steep reverse Trendelenberg. CONCLUSION: There is no reflux (>1 sec) in the superficial veins. No evidence of acute deep vein thrombosis (DVT) in the femoral, popliteal, below knee veins. Evidence of left lower extremity chronic disease/reflux. There is no evidence of superficial vein thrombophlebitis (SVT) in the saphenous veins. ++++++++++++++++++++++++++++++++++++ MEASUREMENTS: ++++++++++++++++++++++++++++++++++++ REFLUX Left CFV CFV 0 sec Left Mid FV Mid FV 0 sec Left Pop V Pop V 2.4 sec Left SFJ GSV SFJ 7.2 mm GSV SFJ 0 sec Left Prox Thigh GSV Prox Thigh 6.5 mm GSV Prox Thigh 0 sec Left Dist Thigh/AK GSV Dist Thigh 6.1 mm GSV Dist Thigh 0 sec Left Prox Calf GSV Prox Calf 5.7 mm GSV Prox Calf 0.45 sec Left Prox SSV Prox 3.2 mm SSV Prox 0 sec <Electronic Signature> 10/22/2024 09:55 PM Wolf Crockett M.D. us Rashmi Yo APNP US VASC Final Resul t * USV ART REST W CHARLEY LOW EXT (10/21/2024 11:06 AM FOOD SAFETY TECHNICIAN) Anatomical Region Laterality Modality Extremity Vascular Ultraso und 10/21/2024 10:0 4 AM FOOD SAFETY TECHNICIAN Narrative 10/21/2024 9:42 PM FOOD SAFETY TECHNICIAN ARTERIAL DOPPLER - CHARLEY BILATERAL LOWER EXTREMITY VASCULAR LAB Pat.Name: FAVIO TRAN.ID: [id number] .Date: 10/21/2024 Refer.MD: rashmi Yo Exam Time: 10:04:00 AM Study Type:YELENA VS Arterial Doppler Legs ALEK Age: 11 1945,79Y Sex: M Sonogrphr: Francis Espino RVT Pat. Stat.:Outpatient History / Clinical:left anterior ferraro ulcer Procedures: Malik scale, Color Doppler imaging, Doppler Spectral Analysis Race: W ++++++++++++++++++++++++++++++++++++ SUMMARY: ++++++++++++++++++++++++++++++++++++ Micah CHARLEY Criteria: >1.30 = falsely elevated, calcified vessels; 1.00-1.29 = no signif ischemia at rest ; .80-.99 = mild PAD, asymptomatic; .50-.79 = moderate PAD, claudication; <.50 = severe PAD, rest pain; <.30 = critical PAD, necrosis, poor healing (Digits: DBI >.60 Normal; <.60 Abnormal) (Positive Stress eval: CHARLEY decrease of >.20 or >20% pressure drop) Right leg: Common Femoral waveform is triphasic, high amplitude; Popliteal triphasic, high amplitude; Posterior Tibial triphasic, medium amplitude with CHARLEY 0 ; DP/Anterior Tibial triphasic, high amplitude with CHARLEY 0 . Digit flow by PPG is low amplitude with DBI 0.436 . Left leg: Common Femoral waveform is triphasic, high amplitude; Popliteal mono-biphasic, medium amplitude; Posterior Tibial monophasic, low amplitude with CHARLEY 0 ; DP/Anterior Tibial monophasic, medium amplitude with CHARLEY 0 . Digit flow by PPG is absent with DBI 0 . CONCLUSION: Pressures >220 mmHg bilaterally suggestive of calcified vessels. ++++++++++++++++++++++++++++++++++++ MEASUREMENTS: ++++++++++++++++++++++++++++++++++++ PRESSURES Right Brachial Brach P 109 mmHg Right Ankle DP AnkleDP P 0 mmHg Right Ankle PT AnklePT P 0 mmHg Right Great Toe GreatToe P 48 mmHg Right CHARLEY PT CHARLEY PT 0 Right CHARLEY DP CHARLEY DP 0 Right TBI TBI 0.436 Left Brachial Brach P 110 mmHg Left Ankle DP AnkleDP P 0 mmHg Left Ankle PT AnklePT P 0 mmHg Left Great Toe GreatToe P 0 mmHg Left CHARLEY PT CHARLEY PT 0 Left CHARLEY DP CHARLEY DP 0 Left TBI TBI 0 <Electronic Signature> 10/21/2024 09:42 PM Wolf Crockett M.D. Procedure Note Wolf Crockett MD - 10/21/2024 ARTERIAL DOPPLER - CHARLEY BILATERAL LOWER EXTREMITY VASCULAR LAB Pat.Name: FAVIO TRAN.ID: [id number] .Date: 10/21/2024 Refer.MD: rashmi Yo Exam Time: 10:04:00 AM Study Type:YELENA VS Arterial Doppler Legs ALEK Age: 11 1945,79Y Sex: M Sonogrphr: Francis Espino RVT Pat. Stat.:Outpatient History / Clinical:left anterior ferraro ulcer Procedures: Malik scale, Color Doppler imaging, Doppler Spectral Analysis Race: W ++++++++++++++++++++++++++++++++++++ SUMMARY: ++++++++++++++++++++++++++++++++++++ Micah CHARLEY Criteria: >1.30 = falsely elevated, calcified vessels; 1.00-1.29 = no signif ischemia at rest ; .80-.99 = mild PAD, asymptomatic; .50-.79 = moderate PAD, claudication; <.50 = severe PAD, rest pain; <.30 = critical PAD, necrosis, poor healing (Digits: DBI >.60 Normal; <.60 Abnormal) (Positive Stress eval: CHARLEY decrease of >.20 or >20% pressure drop) Right leg: Common Femoral waveform is triphasic, high amplitude; Popliteal triphasic, high amplitude; Posterior Tibial triphasic, medium amplitude with CHARLEY 0 ; DP/Anterior Tibial triphasic, high amplitude with CHARLEY 0 . Digit flow by PPG is low amplitude with DBI 0.436 . Left leg: Common Femoral waveform is triphasic, high amplitude; Popliteal mono-biphasic, medium amplitude; Posterior Tibial monophasic, low amplitude with CHARLEY 0 ; DP/Anterior Tibial monophasic, medium amplitude with CHARLEY 0 . Digit flow by PPG is absent with DBI 0 . CONCLUSION: Pressures >220 mmHg bilaterally suggestive of calcified vessels. ++++++++++++++++++++++++++++++++++++ MEASUREMENTS: ++++++++++++++++++++++++++++++++++++ PRESSURES Right Brachial Brach P 109 mmHg Right Ankle DP AnkleDP P 0 mmHg Right Ankle PT AnklePT P 0 mmHg Right Great Toe GreatToe P 48 mmHg Right CHARLEY PT CHARELY PT 0 Right CHARLEY DP CHARLEY DP 0 Right TBI TBI 0.436 Left Brachial Brach P 110 mmHg Left Ankle DP AnkleDP P 0 mmHg Left Ankle PT AnklePT P 0 mmHg Left Great Toe GreatToe P 0 mmHg Left CHARLEY PT CHARLEY PT 0 Left CHARLEY DP CHARLEY DP 0 Left TBI TBI 0 <Electronic Signature> 10/21/2024 09:42 PM Wolf Crockett M.D. Rashmi RHOADES VASC Final Resul t * (ABNORMAL) CULTURE, TISSUE W/GRAM STAIN (09/30/2024 10:02 AM FOOD SAFETY TECHNICIAN) SPEC DESCRIPTION LEG,LEFT 09/30/2024 2:11 PM FOOD SAFETY TECHNICIAN [facility] SPECIAL REQUESTS NO SPECIAL REQUEST 09/30/2024 2:11 PM FOOD SAFETY TECHNICIAN [facility] GRAM STAIN RESULT NO WHITE BLOOD CELLS SEEN 09/30/2024 10:04 PM [facility] GRAM STAIN RESULT NO ORGANISMS SEEN 09/30/2024 10:04 PM [facility] CULTURE RESULT SPARSE GROWTH OF METHICILLIN RESISTANT STAPHYLOCOCCUS AUREUS FOLLOW ISOLATION PROTOCOL. (A) 10/03/2024 8:19 AM [facility] CULTURE RESULT SPARSE GROWTH OF STREPTOCOCCUS VIRIDANS SPECIES ORGANISM IS CONSISTENT WITH NORMAL SKIN SISI. SUSCEPTIBILITIES NOT ROUTINELY PERFORMED. (A) 10/03/2024 8:19 AM [facility] CULTURE RESULT SPARSE GROWTH OF ENTEROCOCCUS SPECIES IF PATIENT IS PENICILLIN ALLERGIC, CONTACT THE MICROBIOLOGY DEPARTMENT FOR READILY AVAILABLE VANCOMYCIN SUSCEPTIBILITY. (A) 10/03/2024 8:19 AM [facility] STRUCTURE OF LEFT LOWER LIMB / Unknown 09/30/2024 10:02 AM FOOD SAFETY TECHNICIAN 09/30/2024 2:12 PM FOOD SAFETY TECHNICIAN Narrative Organism Antibiotic Method Susceptibility Methicillin resistant staphylococcus aureus CLINDAMYCIN ZAIDA (VITEK) >=8: Resistant Methicillin resistant staphylococcus aureus ERYTHROMYCIN ZAIDA (VITEK) >=8: Resistant Methicillin resistant staphylococcus aureus OXACILLIN ZAIDA (VITEK) >=4: Resistant Methicillin resistant staphylococcus aureus TRIMETH-SULFAMETH. ZAIDA (VITEK) >=320: Resistant Methicillin resistant staphylococcus aureus TETRACYCLINE ZAIDA (VITEK) >=16: Resistant Methicillin resistant staphylococcus aureus VANCOMYCIN ZAIDA (VITEK) 1: Sensitive Enterococcus species AMPICILLIN ZAIDA (VITEK) <=2: Sensitive Enterococcus species GENT. SYNERGY SCREEN ZAIDA (VITEK) Sensitive Enterococcus species PENICILLIN G ZAIDA (VITEK) 4: Sensitive us Rashmi RHOADES MICROBIOLOGY - GENERAL ORDE JORGE L Final Result [facility] [address] [place] [address], [place] [phone] * IMAGE GENERIC (08/23/2024) Anatomical Region Laterality Modality Other 08/23/2024 us Doc [facility] Scanned SCANNING Final Resu lt * (ABNORMAL) COMPREHENSIVE METABOLIC PANEL (07/30/2024 12:53 PM FOOD SAFETY TECHNICIAN) SODIUM S/P/B 134(L) 136 - 145 MMOL/L 07/30/2024 3:24 PM FOOD SAFETY TECHNICIAN -[facility] POTASSIUM S/P/B 5.0 3.5 - 5.1 MMOL/L 07/30/2024 3:24 PM FOOD SAFETY TECHNICIAN -[facility] CHLORIDE S/P/B 99 98 - 107 MMOL/L 07/30/2024 3:24 PM FOOD SAFETY TECHNICIAN -[facility] CO2 29.3 21 - 32 MMOL/L 07/30/2024 3:24 PM FOOD SAFETY TECHNICIAN -[facility] GLUCOSE 103(H) 70 - 99 MG/DL 07/30/2024 3:24 PM FOOD SAFETY TECHNICIAN [facility] BUN 10 7 - 18 MG/DL 07/30/2024 3:24 PM FOOD SAFETY TECHNICIAN [facility] [place] CREATININE S/P/B 1.00 0.70 - 1.30 MG/DL 07/30/2024 3:24 PM FOOD SAFETY TECHNICIAN -[facility] CALCIUM S/P/B 9.3 8.4 - 10.5 MG/DL 07/30/2024 3:24 PM FOOD SAFETY TECHNICIAN -[facility] BILIRUBIN TOTAL S/P/B 0.8 0.2 - 1.0 MG/DL 07/30/2024 3:24 PM FOOD SAFETY TECHNICIAN -[facility] ALKALINE PHOSPHATASE S/P/B 133(H) 45 - 115 U/L 07/30/2024 3:24 PM FOOD SAFETY TECHNICIAN [facility] AST 16 15 - 37 U/L 07/30/2024 3:24 PM FOOD SAFETY TECHNICIAN [facility] ALT 19 16 - 63 U/L 07/30/2024 3:24 PM FOOD SAFETY TECHNICIAN [facility] TOTAL PROTEIN S/P/B 6.7 6.4 - 8.2 G/DL 07/30/2024 3:24 PM FOOD SAFETY TECHNICIAN [facility] ALBUMIN S/P/B 3.3(L) 3.4 - 5.0 G/DL 07/30/2024 3:24 PM FOOD SAFETY TECHNICIAN [facility] ANION GAP 5.7 5 - 15 MMOL/L 07/30/2024 3:24 PM FOOD SAFETY TECHNICIAN [facility] Comment:REFERENCE RANGE NOT ESTABLISHED OSMOLALITY (CALC) 277 MOSM/KG 024 3:24 PM FOOD SAFETY TECHNICIAN [facility] Comment:REFERENCE RANGE NOT ESTABLISHED GFR ESTIMATE 78(L) >90 ML/MIN/1. 73 M2 07/30/2024 3:24 PM FOOD SAFETY TECHNICIAN [facility] GFR NOTES GFR REFERENCE S: 07/30/2024 3:24 PM FOOD SAFETY TECHNICIAN [facility] Comment: THE ESTIMATED GFR IS CALCULATED USING THE 2020 CKD-EPI EQUATION. THE FOLLOWING CATEGORIES FOR GRADING RENAL FUNCTION ARE RECOMMENDED BY THE INTERNATIONAL SOCIETY OF NEPHROLOGY (KDIGO 2012 CLINICAL PRACTICE GUIDELINE). G1,NORMAL OR HIGH: >89 ml/min/1.73 m2 G2,MILDLY DECREASED: 60-89 ml/min/1.73 m2 G3A,MILDLY TO MODERATELY DECREASED: 45-59 ml/min/1.73 m2 G3B,MODERATELY TO SEVERELY DECREASED: 30-44 ml/min/1.73 m2 G4,SEVERELY DECREASED: 15-29 ml/min/1.73 m2 G5,KIDNEY FAILURE: <15 ml/min/1.73 m2 07/30/2024 12:5 3 PM FOOD SAFETY TECHNICIAN us Abelino Hudson MD LABORATORY Final Result [facility] [address] [place] [address], [place] [phone] * (ABNORMAL) CBC W/DIFF AUTOMATED (07/30/2024 12:53 PM FOOD SAFETY TECHNICIAN) [facility] WBC 7.07 4.00 - 10.80 x10'3/uL 07/30/2024 3:02 PM [facility] RBC 3.10(L) 4.50 - 6.10 x10'6/uL 07/30/2024 3:02 PM [facility] HGB 10.5(L) 13.0 - 18.0 G/DL 07/30/2024 3:02 PM [facility] HCT 32.1(L) 37.0 - 52.0 % 07/30/2024 3:02 PM [facility] MCV 103.5(H) 78.0 - 100.0 FL 07/30/2024 3:02 PM [facility] MCH 33.9(H) 27.0 - 31.0 PG 07/30/2024 3:02 PM [facility] MCHC 32.7(L) 33.0 - 36.0 G/DL 07/30/2024 3:02 PM [facility] RDW 14.6(H) 11.5 - 14.5 % 07/30/2024 3:02 PM [facility] PLT 168 150 - 350 x10'3/uL 07/30/2024 3:02 PM [facility] MPV 12.6(H) 7.4 - 10.4 FL 07/30/2024 3:02 PM [facility] DIFFERENTIAL TYPE AUTOMATED DIFFERENTIAL 07/30/2024 3:02 PM [facility] NEUTROPHILS % 69.7 % 07/30/2024 3:02 PM [facility] LYMPHOCYTES % 19.2 % 07/30/2024 3:02 PM FOOD SAFETY TECHNICIAN [facility] MONOCYTES % 10.0 % 07/30/2024 3:02 PM [facility] EOSINOPHILS % 0.6 % 07/30/2024 3:02 PM [facility] BASOPHILS % 0.4 % 07/30/2024 3:02 PM [facility] IMMATURE GRANS % 0.1 % 07/30/2024 3:02 PM [facility] ABS. NEUTROPHILS 4.92 1.60 - 8.30 x10'3/uL 07/30/2024 3:02 PM [facility] ABS. LYMPHOCYTES 1.36 0.80 - 4.70 x10'3/uL 07/30/2024 3:02 PM [facility] ABS. MONOCYTES 0.71 0.00 - 1.50 x10'3/uL 07/30/2024 3:02 PM [facility] ABS. EOSINOPHILS 0.04 0.00 - 0.40 x10'3/uL 07/30/2024 3:02 PM [facility] ABS. BASOPHILS 0.03 0.00 - 0.20 x10'3/uL 07/30/2024 3:02 PM [facility] ABS. IMMATURE GRANULOCYTES 0.01 0.00 - 0.03 x10'3/uL 07/30/2024 3:02 PM [facility] 07/30/2024 12:5 3 PM FOOD SAFETY TECHNICIAN us Abelino Hudson MD LABORATORY Final Result [facility] [address] [place] [address], * XR CHEST PA+LAT (07/30/2024 8:09 AM FOOD SAFETY TECHNICIAN) Anatomical Region Laterality Modality Chest Radiographic Jackeline ging 07/30/2024 7:58 AM FOOD SAFETY TECHNICIAN Narrative 08/01/2024 4:21 AM FOOD SAFETY TECHNICIAN [facility] Internal [address] [address] Examination: XR CHEST PA+LAT Exam time: 07/30/2024 7:58 AM Clinical history: Dyspnea on exertion. Comparison: Radiographs July 21, 2024 and May 14, 2024. Technique: PA and lateral views. Findings: Multiple broken sternotomy wires are noted. Cardiac valve prosthesis present. The heart is mildly enlarged. No significant vascular congestion. Small bilateral pleural effusions with atelectasis. No airspace consolidation or pneumothorax. Multilevel thoracic spondylosis. IMPRESSION: Mild cardiomegaly with small bilateral pleural effusions and atelectasis. Referred By: Interpreted By: Anthony Parada MD, 08/01/2024 4:20 AM Procedure Note Anthony Parada MD - 08/01/2024 [facility] Internal [address] [address] Examination: XR CHEST PA+LAT Exam time: 07/30/2024 7:58 AM Clinical history: Dyspnea on exertion. Comparison: Radiographs July 21, 2024 and May 14, 2024. Technique: PA and lateral views. Findings: Multiple broken sternotomy wires are noted. Cardiac valve prosthesispresent. The heart is mildly enlarged. No significant vascular congestion.Small bilateral pleural effusions with atelectasis. No airspaceconsolidation or pneumothorax. Multilevel thoracic spondylosis. IMPRESSION: Mild cardiomegaly with small bilateral pleural effusions andatelectasis. Referred By: Interpreted By: Anthony Parada MD, 08/01/2024 4:20 AM us Abelino Hudson MD GENERAL IMAGING Final Result * COLONOSCOPY (08/06/2019 4:42 PM FOOD SAFETY TECHNICIAN) us Documents Scanned SCANNING Final Result from Last 3 Months or Most Recently Relevant to Health Maintenance Additional Health Concerns Infection Onset Date Last Indicated MRSA 09/30/2024 09/30/2024 Insurance ESSENCE Advance Directives Documents on File Type Date Recorded Patient Community Pharmacist Expl anation Power of Production Control Coordinating Clerk 10/12/2022 10/12/22 PO A FOR HEALTH CARE * Full Code (Latest Code Status on File) Date Activated Date Inactivated Comments 10/11/2022 6:40 PM 10/12/2022 4:49 PM * Full Code Date Activated Date Inactivated Comments 10/11/2022 8:09 AM 10/11/2022 6:39 PM * Full Code Date Activated Date Inactivated Comments 08/15/2022 10:25 AM 08/15/2022 4:15 PM Care Teams Party Bus Driver Relationship Specialty Start Date End Date Abelino Hudson MD [address] [place] [address] PCP - General 12/22/15 Brody Chawla MD [address] [address] [place] [address] Consulting Physician ORTHOPAEDIC SURGERY 06/26/24
--- OUTSIDE RECORDS SUMMARY | 2024-10-29 12:41 | XMS_ITS | Encounter Summary ---
Author Organization [facility] Address [address] [place] [id number] Care Team Providers Care [employer] Name Role Phone Abelino Hudson MD Primary Care Provider [phone] Brody Chawla MD Unavailable [phone] Reason for Referral * Surgical (Routine) - New Request Specialty Diagnoses / Procedures Referred By Myriam gomez Referred To Contact VASCULAR SURGERY Diagnoses Arterial insufficiency of lower extremity (CMS/HCC) Procedures OFFICE/OUTPATIENT NEW LOW MDM 30-44 MINUTES OFFICE/OUTPT VISIT,NEW,LEVL IV OFFICE/OUTPT VISIT,NEW,LEVL V OFFICE/OUTPT VISIT,EST,LEVL III OFFICE/OUTPT VISIT,EST,LEVL IV OFFICE/OUTPT VISIT,EST,LEVL V Liz Yo APNP [address] [facility] [address] [place] [address] Phone: tel: fax: Deja Orellana MD [address] [place] [address] Phone: tel: fax: Referral ID Status Reason Start Date Expiration Date Visits Requested Visits Authorized [id number] New Request Specialty Services 10/28/2024 10/28/2025 1 1 TERIA CLERK Encounter Details Date Type Department Care Team (Late st Contact Info) Description 10/28/2024 Orders Only [facility] [address] [place] [address] Liz Yo APNP [id number] [phone] Social History Tobacco Use Types Packs/Day Years Used Date Smoking Tobacco: Never Passive Smoke Exposure: Never Smokeless Tobacco: Never Comments:Non smoker Alcohol Use Standard Drinks/Week Comments [...] money to buy more. Never true 10/11/19 23 Within the past 12 months, t he [...] place to sleep or slept in a fpc (including now)? No 10/11/2022 Sex and Gender Information Value Date Recorded Sex Assigned at Male 02/06/2019 8:24 AM CDT Legal Sex Male 5:37 PM CDT Gender Identity Male 02/06/2019 8:24 AM CDT Sexual Orientation Straight 02/06/2019 8: 24 AM CDT documented as of this encounter Functional Status * RETIRED Are you deaf or do you have serious difficulty hearing Answer Date of Assessment Author Status No 10/11/2022 6:02 PM CAFETERIA CLERK Activ e * RETIRED Are you blind or do you have serious difficulty seeing, even when wearing glasses? Answer Date of Assessment Author Status No 10/11/2022 6:02 PM CAFETERIA CLERK Activ e * Do you have serious difficulty walking or climbing stairs? Answer Date of Assessment Author Status No 10/11/2022 6:02 PM Bryon Ray RN Active * Do you have difficulty dressing or bathing? Answer Date of Assessment Author Status No 10/11/2022 6:02 PM Bryon Ray RN Active * Because of a physical, mental, or emotional condition, do you have difficulty doing errands alone such as visiting a doctor's office or shopping? Answer Date of Assessment Author Status No 10/11/2022 6:02 PM Bryon Ray RN Active documented as of this encounter Mental Status * Because of a physical, mental, or emotional condition, do you have serious difficulty concentrating, remembering, or making decisions? Answer Entry Date Author Status No 10/11/2022 6:02 PM CAFETERIA CLERK Bryon Hills RN Active documented in this encounter Plan of Treatment Upcoming Encounters Date Type Department Care Team (Late st Contact Info) Description 11/03/2024 10:30 AM CAFETERIA CL[address] [facility] [place] [address] Deja Orellana MD [address] [place] [address] 11/05/2024 1:15 PM CAFETERIA CLERK Office Visit [facility], [address] [address] Deja Orellana MD [address] [place] [address] 11/28/2024 11:15 AM CDT Office Visit [facility] [address] Kerri Tinoco MD [facility] [address] [place] [address] 12/30/2024 8:00 AM CDT Appointment [facility] [place] [address] Kerri Tinoco MD [facility] [address] [place] [address] Scheduled Referrals Name Type Priority Associated Diagnoses Orde r Schedule Ambulatory referral to Vascular Surgery Referral Routine Arterial insufficiency of lower extremity (CMS/HCC) Ordered: 10/28/2024 documented as of this encounter Goals Goal Patient Goal Type Associated Problems Recent Progress Patient-Stated? Author Patient will return to prior living situation and remain independent in ADLs upon discharge from hospital Lifestyle On track(2022 12:01 PM CAFETERIA CLERK) No Stephanie Carlson RN Establish Plan for Symptom Monitoring Lifestyle On track(2022 1:23 PM CAFETERIA CLERK) No Penny Cisse RN Note: HTN: Patient to monitor blood pressure daily and record readings and call provider with consistent readings >140/90. Patient will maintain a low sodium diet . Patient will call provider with any visual disturbances, headaches or dizziness. Patient to take all medications as prescribed. Monitor - verbalizes recognition of s/s wound infections Lifestyle On track(2022 1:24 PM CAFETERIA CLERK) No Penny Cisse RN Consistently take medications as Prescribed Lifestyle On track(2022 1:23 PM CAFETERIA CLERK) Penny Babin RN Medications - demonstrates understanding of how and when to take anticoagulants, dietary restrictions, and signs and symptoms to report to PCP Lifestyle On track(2022 1:24 PM CAFETERIA CLERK) No Penny Cisse RN documented as of this encounter Visit Diagnoses Diagnosis Venous reflux- Primary Unspecified venous (peripheral) insufficiency Arterial insufficiency of lower extremity (CMS/HCC) documented in this encounter Additional Health Concerns Infection Onset Date Last Indicated Resolved Time MRSA 09/30/2024 09/30/2024 Assessment Noted Time PHQ-9 Depression Total Score: 0 05/08/20 22 8:25 AM CDT documented as of this encounter Care Teams [employer] Relationship Specialty Start Date End Date Abelino Hudson MD [address] [place] [address] PCP - General 12/22/15 Brody Chawla MD [address] [place] [address] [place] [address] Consulting Physician ORTHOPAEDIC SURGERY 06/26/24 documented as of this encounter
--- OUTSIDE RECORDS SUMMARY | 2024-10-29 12:41 | XMS_ITS | Continuity of Care Document ---
Author Organization [facility] Address [address] [place] [address] Phone Care Team Providers Care Distillation Operator Helper Name Role Phone Levon Maria Unavailable Unavailable Advance Directives Directive Yes / No Effective Date File Name No Information Encounters Encounter Description Practice Location Reason(s) For Visit Diagnoses Date Provider Providers Copied on Encounter [facility], [address] [facility] [place], [place], [id number], [place] tel:[phone] [facility] No Information 4 [facility] er. [address], [address], [place], [place], [id number] , [place]. tel: [phone] Family History Family Member Type Diagnosis Age At Onset No Information Payers Payer name Insurance type Covered constitution party ID Authoriza tion(s) No Information Social History Type Description Quantity Date Captured Comments Sex Male Smoking Status No Information Chief Complaint And Reason For Visit No Information Reason For Referral Reason For Referral No Information History Of Present Illness Encounter Date Complaint History Of Prese nt Illness No Information Functional Status Date Functional Assessmen t No Information Instructions Date Instruction Additional Infor mation No Information Assessments Type Assessment Date No Information Patient Care Teams Name Effective Dates (start - stop) Status Members No Information
--- OUTSIDE RECORDS SUMMARY | 2024-10-29 12:41 | XMS_ITS | Encounter Summary ---
Author Organization [facility] Address [address] [place] [address] Care Team Providers Care Heater Tender Name Role Phone Abelino Hudson MD Primary Care Provider Penny Cisse RN Unavailable [phone] Brody Chawla MD Unavailable [phone] Encounter Details Date Type Department Care Team (Late st Contact Info) Description 08/14/2022 Hospital Orders Only [facility] [place] [place] [id number] Basil Day MD Three [facility]. [address] [place], [place] [id number] Social History Tobacco Use Types Packs/Day Years Used Date Smoking Tobacco: Never Smokeless Tobacco: Never Alcohol Use Standard Drinks/Week Comments Yes 70 (1 standard drink = 0.6 oz pu re alcohol) 6 cans of beer daily PHQ-2 Answer Date Recorded PHQ-2 Score - If the patient scores above 3, please move on to questions 3-9 0 05/08/2022 Exercise Vital Sign Answer Date Recorde d On average, how many days pe r week do you engage in moderate to strenuous exercise (like a brisk walk)? 3 days 05/02/2021 On average, how many minutes do you engage in exercise at this level? 20 min 05/02/2021 Sex and Gender Information Value Date Recorded Sex Assigned at Male 02/06/2019 8:24 AM CDT Legal Sex Male 5:37 PM CDT Gender Identity Male 02/06/2019 8:24 AM CDT Sexual Orientation Straight 02/06/2019 8: 24 AM CDT COVID-19 Exposure Response Date Recorded In the last 10 days, have yo u been in contact with someone who was confirmed or suspected to have Coronavirus/COVID-19? No / Unsure 08/15/2022 7:27 AM SILK WORKER documented as of this encounter Plan of Treatment Upcoming Encounters Date Type Department Care Team (Late st Contact Info) Description 11/03/2024 10:30 AM SILK WORKER Appointment [facility] [place] [place] [address] Deja Orellana MD [address] [place] [address] 11/05/2024 1:15 PM SILK WORKER Office Visit [facility], [address] [address] Deja Orellana MD [address] [place] [address] 11/28/2024 11:15 AM CDT Office Visit [facility] [address] Kerri Tnioco MD Three [facility] [address] [place] [address] 12/30/2024 8:00 AM CDT Appointment [facility] [place] [address] Kerri Tinoco MD Three [facility] [address] [place] [address] documented as of this encounter Visit Diagnoses Not on filedocumented in this encounter Additional Health Concerns Infection Onset Date Last Indicated Resolved Time COVID-19 Rule Out 04/02/2023 04/02/2023 04/02/2023 1:47 PM CDT Influenza - Seasonal 04/02/2023 04/02/2023 023 12:33 AM CDT MRSA 09/30/2024 09/30/2024 Assessment Noted Time PHQ-9 Depression Total Score: 0 05/08/20 22 8:25 AM CDT documented as of this encounter Care Teams Heater Tender Relationship Specialty Start Date End Date Abelino Hudson MD [address] [place] [address] PCP - General 12/22/15 Penny Cisse, RN [address] [place], [place] [address] Urologic Surgeon (Ambulatory) REGISTERED NURSE 10/11/22 11/07/22 Brody Chawla MD [address] [address] [place] [address] Consulting Physician ORTHOPAEDIC SURGERY 06/26/24 documented as of this encounter
--- OUTSIDE RECORDS SUMMARY | 2024-10-29 12:41 | XMS_ITS | CONTINUITY OF CARE DOCUMENT ---
Author Name michaelle braswell Address Unknown Organization [facility] Address [address] [place] [address] Phone [phone] Care Team Providers Care Bricklayer Tender Name Role Phone Johan Goncalves MD Unavailable [phone] Johan Goncalves MD Unavailable [phone] INSURANCE PROVIDERS Payer name Policy type / Coverage type William red democrat ID [facility] H[employer] Other [id number]
--- OUTSIDE RECORDS SUMMARY | 2024-10-29 12:41 | XMS_ITS | Encounter Summary ---
Author Organization [facility] Address [address] [place] [address] Care Team Providers Care Power Barker Name Role Phone Abelino Hudson MD Primary Care Provider [phone] Reason for Referral * Consultation (Routine) - Closed Specialty Diagnoses / Procedures Referred By Contac t Referred To Contact Orthopedics Diagnoses Acute pain of left knee Abelino Hudson MD [address] [place] [address] [facility] [address] [place] [address] Referral ID Status Reason Start Date Expiration Date V isits Requested Visits Authorized [id number] Closed Specialty Services Required 07/15/2024 07/15/2025 1 1 Encounter Details Date Type Department Care Team (Latest Contact Info) Description 07/15/2024 Transcribe Orders [facility] - Centralized Scheduling [address] [place] [id number] Abelino Hudson MD [address] [place] [id number] Acute pain of left knee Social History Tobacco Use Types Packs/Day Years Used Date Smoking Tobacco: Never Assessed Sex and Gender Information Value Date Recorded Sex Assigned at Not on file Gender Identity Not on file Sexual Orientation Not on file documented as of this encounter Plan of Treatment Scheduled Referrals Name Type Priority Associated Diagnoses Order Schedule AMB REFERRAL TO ORTHOPEDICS Outpatient Referral Routine Acute pain of left knee 1 Occurrences starting 07/15/2024 until 07/15/2025 documented as of this encounter Visit Diagnoses Diagnosis Acute pain of left knee- Primary documented in this encounter Care Teams Power Barker Relationship Specialty Start Date End Date Abelino Hudson MD [address] [place] [address] PCP - General Internal Medicine 07/16/24 documented as of this encounter
--- OUTSIDE RECORDS SUMMARY | 2024-10-29 12:41 | XMS_ITS | Referral Summary ---
Author Organization [facility] Address [address] [place] [address] Care Team Providers Care Ground Mixer Name Role Phone Abelino Hudson MD Primary Care Provider [phone] Source Comments [facility],non-owned Affiliates and Associated Physician Practices is amultiple site organization consisting of ambulatory clinics and hospital sitesin [place], [place], [place] and [place]. This disclosure is being madepursuant to the Care Everywhere program and may not contain all information available regarding this patient. Last updated 18.[facility] Encounters Date Type Department Care Team Description 08/05/2024 8:18 AM ROULETTE DEALER - 08/05/2024 11:59 PM ROULETTE DEALER Hospital Encounter [facility] DIAGNOSTIC RAD CSM [address] [place] [address] Katerine Dotson MD Discharge Disposition: Home or Self Care 08/05/2024 Travel 08/05/2024 8:30 AM ROULETTE DEALER Office Visit [facility] - Orthopedics [address] [place] [address] Katerine Dotson MD History of total left knee replacement (Primary Dx) from Last 3 Months Allergies No known active allergies Social History Tobacco Use Types Packs/Day Years Used Date Smoking Tobacco: Never Smokeless Tobacco: Never Tobacco Cessation:Counseling Given: Not Answered PHQ-2 Answer Date Recorded Patient Health Questionnaire-2 Score 0 08/05/2024 Sex and Gender Information Value Date Recorded Sex Assigned at Not on file Gender Identity Not on file Sexual Orientation Not on file Plan of Treatment Not on file Procedures Procedure Name Priority Date/Time Associated Diagnosis Comments XR KNEE LEFT 4VW OR MORE Routine 08/05/2024 8:38 AM ROULETTE DEALER Left knee pain, unspecified chronicity from Last 3 Months Results * XR Knee Left 4Vw or More (08/05/2024 8:38 AM ROULETTE DEALER) Anatomical Region Laterality Modality Lower Extremity Computed Radiogr aphy 08/05/2024 8:45 AM ROULETTE DEALER Impressions 08/05/2024 8:47 AM ROULETTE DEALER IMPRESSION: Total knee arthroplasty. > Interpreting Provider: Wilder Quach MD on 08/05/2024 8:47 AM Narrative 08/05/2024 8:47 AM ROULETTE DEALER PROCEDURE: XR KNEE LEFT 4VW OR MORE [...] Katerine Dotson MD DIAGNOSTIC IMAGING O RDERABLES from Last 3 Months Care Teams Ground Mixer Relationship Specialty Start Date End Date Abelino Hudson MD [address] [place] [id number] PCP - General Internal Medicine 07/16/24
--- OUTSIDE RECORDS SUMMARY | 2024-10-29 12:41 | XMS_ITS | Encounter Summary ---
Author Organization [facility] Address [address] [place] [address] Care Team Providers Care Rejected Items Clerk Name Role Phone Abelino Hudson MD Primary Care Provider [phone] Brody Chawla MD Unavailable [phone] Reason for Visit * Reason Onset Date Comments Referral 10/29/2024 Encounter Details Date Type Department Care Team (Late st Contact Info) Description 10/29/2024 Telephone [facility] Family & Internal Medicine [address] [place] [address] Abelino Hudson MD [address] [place] [address] Referral Social History Tobacco Use Types Packs/Day Years [...] place to sleep or slept in a jail (including now)? 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 Answer Date of Assessment Author Status No 10/11/2022 6:02 PM OIL AND GAS FIELD TECHNICIAN Activ e * Do you have serious [...] Date Author Status No 10/11/2022 6:02 PM Bryon Ray RN Active documented in this encounter Progress Notes * Talya Pena Reji - 10/29/2024 12:00 PM CST The patient called for a referral to the following physician: Is this a new consult:Yes. Dr's name: Dr Deja Orellana Specialty: Vascular Reason for referral (diagnosis): both lower extremities Appointment: 11/05/2024 Last office visit at this office: Last visit with ABELINO HUDSON in FAMILY PRACTICE was on: 09/25/[address] [facility] Future appointment scheduled: Future Appointments Date Time Provider Department Center 11/03/2024 10:30 AM MD FERNANDO Cadena [facility] 11/05/2024 1:15 PM Deja Orellana MD [facility] 11/28/2024 11:15 AM Kerri Tinoco MD [facility] 12/30/2024 8:00 AM BOY ECHO 1 [facility] [employer] AND GAS FIELD TECHNICIAN documented in this encounter Plan of Treatment Upcoming Encounters Date Type Department Care Team (Late st Contact Info) Description 11/03/2024 10:30 AM OIL AND GAS FIELD TECHNICIAN Appointment [facility] [place] [address] Deja Orellana MD [address] [place] [address] 11/05/2024 1:15 PM OIL AND GAS FIELD TECHNICIAN Office Visit [facility] THREE [facility], [address] [address] Deja Orellana MD [address] [place] [address] 11/28/2024 11:15 AM CDT Office Visit [facility] [address] Kerri Tinoco MD Three [facility] [address] [place] [address] 12/30/2024 8:00 AM CDT Appointment [facility] ONE [facility] [place] [address] Kerri Tinoco MD Three [facility] [address] [place] [address] documented as of this encounter Goals Goal Patient Goal Type Associated Problems Recent Progress Patient-Stated? Author Patient will return to prior living situation and remain independent in ADLs upon discharge from hospital Lifestyle On track(2022 12:01 PM OIL AND GAS FIELD TECHNICIAN) No Stephanie Carlson, RN Establish Plan for Symptom Monitoring Lifestyle On track(2022 1:23 PM OIL AND GAS FIELD TECHNICIAN) No Penny Cisse RN Note: HTN: Patient to monitor blood pressure daily and record readings and call provider with consistent readings >140/90. Patient will maintain a low sodium diet . Patient will call provider with any visual disturbances, headaches or dizziness. Patient to take all medications as prescribed. Monitor - verbalizes recognition of s/s wound infections Lifestyle On track(2022 1:24 PM OIL AND GAS FIELD TECHNICIAN) Penny Babin RN Consistently take medications as Prescribed Lifestyle On track(2022 1:23 PM OIL AND GAS FIELD TECHNICIAN) Penny Babin RN Medications - demonstrates understanding of how and when to take anticoagulants, dietary restrictions, and signs and symptoms to report to PCP Lifestyle On track(2022 1:24 PM OIL AND GAS FIELD TECHNICIAN) Penny Babin RN documented as of this encounter Visit Diagnoses Not on filedocumented in this encounter Additional Health Concerns Infection Onset Date Last Indicated Resolved Time MRSA 09/30/2024 09/30/2024 Assessment Noted Time PHQ-9 Depression Total Score: 0 05/08/20 22 8:25 AM CDT documented as of this encounter Care Teams Rejected Items Clerk Relationship Specialty Start Date End Date Abelino Hudson MD [address] [place] [address] PCP - General 12/22/15 Brody Chawla MD [address] [address] [place] [address] Consulting Physician ORTHOPAEDIC SURGERY 06/26/24 documented as of this encounter
--- OUTSIDE RECORDS SUMMARY | 2024-10-29 12:41 | XMS_ITS | Clinical Summary ---
Author Organization [facility] Address [address] [place] [address] Care Team Providers Care Manager Event Name Role Phone Abelino Hudson MD Primary Care Provider [phone] Source Comments [facility],non-owned Affiliates and Associated Physician Practices is amultiple site organization consisting of ambulatory clinics and hospital sitesin [place] and [place]. This disclosure is being madepursuant to the Care Everywhere program and may not contain all information available regarding this patient. Last updated 18.[facility] Allergies No known active allergies Encounters Date Type Department Care Team Description 08/05/2024 8:30 AM SENIOR BIOSTATISTICIAN/GROUP LEADER Office Visit [facility] - Orthopedics [address] [place] [address] Katerine Dotson MD History of total left knee replacement (Primary Dx) 08/05/2024 8:18 AM SENIOR BIOSTATISTICIAN/GROUP LEADER - 08/05/2024 11:59 PM SENIOR BIOSTATISTICIAN/GROUP LEADER Hospital Encounter [facility] DIAGNOSTIC RAD CSM [address] [place] [address] Katerine Dotson MD Discharge Disposition: Home or Self Care 08/05/2024 Travel from Last 3 Months Social History Tobacco Use Types Packs/Day Years Used Date Smoking Tobacco: Never Smokeless Tobacco: Never Tobacco Cessation:Counseling Given: Not Answered PHQ-2 Answer Date Recorded Patient Health Questionnaire-2 Score 0 08/05/2024 Sex and Gender Information Value Date Recorded Sex Assigned at Not on file Gender Identity Not on file Sexual Orientation Not on file Plan of Treatment Health Maintenance Due Date Last Done Comments HEPATITIS C SCREENING 07/21/1965 DTAP/TDAP/TD VACCINES (1 - Tdap) 1966 PNEUMOCOCCAL VACCINE 50+ (1 of 1 - PCV) 1997 ZOSTER VACCINE (1 of 2) 1997 Respiratory Syncytial Virus (RSV) Vaccine Pt: or over 60 yrs (1 - 1-dose 75+ series) 2022 COVID-19 VACCINE (5 - season) 2024 08/08/2022, 08/21/2021, 12/04/2020, Additional history exists DEPRESSION SCREENING 09/17/2024 08/05/2024 MEDICARE AWV CALENDAR YEAR 2024 INFLUENZA VACCINE Completed 07/19/2024, , 06/18/2019, Additional history exists HEPATITIS B VACCINE Aged Out No longe r eligible based on patient's age to complete this topic HIB VACCINE Aged Out No longer eligi ble based on patient's age to complete this topic HPV VACCINE Aged Out No longer eligi ble based on patient's age to complete this topic MENINGOCOCCAL (Group B) VACCINE Aged Out No longer eligible based on patient's age to complete this topic MENINGOCOCCAL VACCINE Aged Out No akua april eligible based on patient's age to complete this topic Procedures Procedure Name Priority Date/Time Associated Diagnosis Comments XR KNEE LEFT 4VW OR MORE Routine 08/05/2024 8:38 AM SENIOR BIOSTATISTICIAN/GROUP LEADER Left knee pain, unspecified chronicity from Last 3 Months Results * XR Knee Left 4Vw or More (08/05/2024 8:38 AM SENIOR BIOSTATISTICIAN/GROUP LEADER) Anatomical Region Laterality Modality Lower Extremity Computed Radiogr aphy 08/05/2024 8:45 AM SENIOR BIOSTATISTICIAN/GROUP LEADER Impressions 08/05/2024 8:47 AM SENIOR BIOSTATISTICIAN/GROUP LEADER IMPRESSION: Total knee arthroplasty. > Interpreting Provider: Wilder Quach MD on 08/05/2024 8:47 AM Narrative 08/05/2024 8:47 AM SENIOR BIOSTATISTICIAN/GROUP LEADER PROCEDURE: XR KNEE LEFT 4VW OR MORE [...] RDERABLES from Last 3 Months Care Teams Manager Event Relationship Specialty Start Date End Date Abelino Hudson MD [address] [place] [address] PCP - General Internal Medicine 07/16/24
--- OUTSIDE RECORDS SUMMARY | 2024-10-29 12:41 | XMS_ITS | Encounter Summary ---
Author Organization [facility] Address [address] [place] [address] Care Team Providers Care Escape Wheel Tooth Cutter Name Role Phone Abelino Hudson MD Primary Care Provider [phone] Penny Cisse RN Unavailable [phone] Brody Chawla MD Unavailable [phone] Encounter Details Date Type Department Care Team (Late st Contact Info) Description 08/21/2022 Abstract [facility]-[address] [address] Rohan Barahona MA Social History Tobacco Use Types Packs/Day Years [...] Coronavirus/COVID-19? No / Unsure 08/15/2022 7:27 AM TRANSFORMER MAKER documented as of this encounter Plan of Treatment Upcoming Encounters Date Type Department Care Team (Late st Contact Info) Description 11/03/2024 10:30 AM TRANSFORMER MAKER Appointment [facility] [place] [address] Deja Orellana MD [address] [place] [address] 11/05/2024 1:15 PM TRANSFORMER MAKER [facility], [address] [address] Deja Orellana MD [address] [place] [address] 11/28/2024 11:15 AM CDT Office Visit [facility]-[address] [address] Kerri Tinoco MD [facility] [address] [place] [address] 12/30/2024 8:00 AM CDT Appointment [facility] ONE [facility] [place] [address] Kerri Tinoco MD Three [facility] [address] [place] [address] documented as of this encounter Procedures Procedure Name Priority Date/Time Associated Diagnosis Comments BUN (OUTSIDE LAB) Routine 08/19/2022 HEMATOCRIT Routine 08/19/2022 CREATININE Routine 08/19/2022 documented in this encounter Results * CREATININE (08/19/2022) CREATININE S/P/B 0.87 0.7 - 1.3 EGFR NON-AFR. AMER. 90 <=90 08/19/2022 us Default History Genericprovider LABORATORY Final Result * BUN (OUTSIDE LAB) (08/19/2022) BUN 13 08/19/2022 us Default History Genericprovider LAB-OUTSIDE/ABST RACTED Final Result * HEMATOCRIT (08/19/2022) HCT 41.0 08/19/2022 us Default History Genericprovider LABORATORY Edited Result - Final documented in this encounter Visit Diagnoses Not on filedocumented in this encounter Additional Health Concerns Infection Onset Date Last Indicated Resolved Time COVID-19 Rule Out 04/02/2023 04/02/2023 04/02/2023 1:47 PM CDT Influenza - Seasonal 04/02/2023 04/02/2023 023 12:33 AM CDT MRSA 09/30/2024 09/30/2024 Assessment Noted Time PHQ-9 Depression Total Score: 0 05/08/20 22 8:25 AM CDT documented as of this encounter Care Teams Escape Wheel Tooth Cutter Relationship Specialty Start Date End Date Abelino Hudson MD [address] [place] [address] PCP - General 12/22/15 Penny Cisse RN [address] [place], [place] [address] Core Composer Feeder (Ambulatory) REGISTERED NURSE 10/11/22 11/07/22 Brody Chawla MD [address] [address] [place] [address] Consulting Physician ORTHOPAEDIC SURGERY 06/26/24 documented as of this encounter
--- OUTSIDE RECORDS SUMMARY | 2024-10-29 12:41 | XMS_ITS | Encounter Summary ---
Author Organization [facility] Address [address] [place] [address] Care Team Providers Care Automobile Damage Field Appraiser Name Role Phone Abelino Hudson MD Primary Care Provider [phone] Brody Chawla MD Unavailable [phone] Encounter Details Date Type Department Care Team (Late st Contact Info) Description 10/28/2024 8:06 AM [facility] Hospital Encounter [facility] [address] [place] [address] Liz Yo, VER[place] [address] [place] [address] [place] [address] Arrived Social History Tobacco Use Types Packs/Day Years [...] place to sleep or slept in a mcc (including now)? No 10/11/2022 Sex and Gender [...] Assessment Author Status No 10/11/2022 6:02 PM PLACEMENT SECRETARY Activ e * RETIRED Are you blind or do you have serious difficulty seeing, even when wearing glasses? Answer Date of Assessment Author Status No 10/11/2022 6:02 PM PLACEMENT SECRETARY Activ e * Do you have serious [...] Ray RN Active documented in this encounter Plan of Treatment Upcoming Encounters Date Type Department Care Team (Late st Contact Info) Description 11/03/2024 10:30 AM PLACEMENT SECRETARY Appointment [facility] [address] [place] [address] Deja Orellana MD [address] [place] [address] 11/05/2024 1:15 PM PLACEMENT SECRETARY Office Visit [facility] [address], [address] [address] Deja Orellana MD [address] [place] [address] 11/28/2024 11:15 AM CDT Office Visit [facility] [phone] eKrri Tinoco MD [facility] [address] [place] [address] 12/30/2024 8:[address] [facility] [address] Kerri Tinoco MD Three [facility] [address] [place] [address] documented as of this encounter Goals Goal Patient Goal Type Associated Problems Recent Progress Patient-Stated? Author Patient will return to prior living situation and remain independent in ADLs upon discharge from hospital Lifestyle On track(2022 12:01 PM PLACEMENT SECRETARY) No Stephanie Carlson RN Establish Plan for Symptom Monitoring Lifestyle On track(2022 1:23 PM PLACEMENT SECRETARY) No Penny Cisse RN Note: HTN: Patient to monitor blood pressure daily and record readings and call provider with consistent readings >140/90. Patient will maintain a low sodium diet . Patient will call provider with any visual disturbances, headaches or dizziness. Patient to take all medications as prescribed. Monitor - verbalizes recognition of s/s wound infections Lifestyle On track(2022 1:24 PM PLACEMENT SECRETARY) No Penny Cisse RN Consistently take medications as Prescribed Lifestyle On track(2022 1:23 PM PLACEMENT SECRETARY) Penny Babin RN Medications - demonstrates understanding of how and when to take anticoagulants, dietary restrictions, and signs and symptoms to report to PCP Lifestyle On track(2022 1:24 PM PLACEMENT SECRETARY) Penny Babin RN documented as of this encounter Visit Diagnoses Not on filedocumented in this encounter Additional Health Concerns Infection Onset Date Last Indicated Resolved Time MRSA 09/30/2024 09/30/2024 Assessment Noted Time PHQ-9 Depression Total Score: 0 05/08/20 22 8:25 AM CDT documented as of this encounter Care Teams Automobile Damage Field Appraiser Relationship Specialty Start Date End Date Abelino Hudson MD [address] [place] [address] PCP - General 12/22/15 Brody Chawla MD [address] [address] [place] [address] Consulting Physician ORTHOPAEDIC SURGERY 06/26/24 documented as of this encounter
--- OUTSIDE RECORDS SUMMARY | 2024-10-29 12:41 | XMS_ITS | Encounter Summary ---
Author Organization [facility] Address [facility] [place] [address] Care Team Providers Care Cloth Examiner Machine Name Role Phone Abelino Hudson MD Primary Care Provider Brody Chawla MD Unavailable [phone] Encounter Details Date Type Department Care Team (Latest Contact Info) Description 10/28/2024 Travel Social History Tobacco Use Types Packs/Day Years [...] place to sleep or slept in a residential (including now)? No 10/11/2022 Sex and Gender [...] Assessment Author Status No 10/11/2022 6:02 PM CONTACT CENTER PROFESSIONAL Activ e * RETIRED Are you blind or do you have serious difficulty seeing, even when wearing glasses? Answer Date of Assessment Author Status No 10/11/2022 6:02 PM CONTACT CENTER PROFESSIONAL Activ e * Do you have serious [...] st Contact Info) Description 11/03/2024 10:30 AM CONTACT CENTER PROFESSIONAL [facility]ointment [facility] [place] [address] Deja Orellana MD [address], [place] [id number] 11/05/2024 1:15 PM CONTACT CENTER PROFESSIONAL Office Visit [facility], [facility] [address] [place] [address] Deja Orellana MD [address] [place] [address] 11/28/2024 11:15 AM CDT Office Visit [facility] [phone] Kerri Tinoco MD Three [facility] [address] [place] [address] 12/30/2024 8:00 AM CDT Appointment [facility] [place] [address] Kerri Tinoco MD [facility] [address] [place] [address] documented as of this encounter Goals Goal Patient Goal Type Associated Problems Recent Progress Patient-Stated? Author Patient will return to prior living situation and remain independent in ADLs upon discharge from hospital Lifestyle On track(2022 12:01 PM CONTACT CENTER PROFESSIONAL) No Stephanie Carlson RN Establish Plan for Symptom Monitoring Lifestyle On track(2022 1:23 PM CONTACT CENTER PROFESSIONAL) No Penny Cisse RN Note: HTN: Patient to monitor blood pressure daily and record readings and call provider with consistent readings >140/90. Patient will maintain a low sodium diet . Patient will call provider with any visual disturbances, headaches or dizziness. Patient to take all medications as prescribed. Monitor - verbalizes recognition of s/s wound infections Lifestyle On track(2022 1:24 PM CONTACT CENTER PROFESSIONAL) No Penny Cisse RN Consistently take medications as Prescribed Lifestyle On track(2022 1:23 PM CONTACT CENTER PROFESSIONAL) No Penny Cisse RN Medications - demonstrates understanding of how and when to take anticoagulants, dietary restrictions, and signs and symptoms to report to PCP Lifestyle On track(2022 1:24 PM CONTACT CENTER PROFESSIONAL) No Penny Cisse RN documented as of this encounter Visit Diagnoses Not on filedocumented in this encounter Additional Health Concerns Infection Onset Date Last Indicated Resolved Time 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
--- OUTSIDE RECORDS SUMMARY | 2024-10-29 12:41 | XMS_ITS | Clinical Summary ---
Author Organization [facility] [address] Address [address] [place] [address] Care Team Providers Care Animal Tech Name Role Phone Abelino Hudson MD Primary Care Provider [phone] Cesar Andres MD Unavailable [phone] Allergies No known active allergies Medications allopurinol (ZYLOPRIM) 300 mg tabletIndications:p revention of acute gout attack Take 300 mg by mouth every morning 9 Active aspirin 81 mg chewable tabletIndications:C erebral Thromboembolism Prevention,Myocardi al Reinfarction Prevention Take 81 mg by mouth nightly Active folic acid (FOLVITE) 1 mg tablet Take 1 tablet (1 mg total) by mouth daily 30 tablet 11 9 Active acetaminophen 500 mg capsule Take 2 capsules (1,000 mg total) by mouth every 6 (six) hours as needed for pain 30 tablet 9 Active atorvastatin (LIPITOR) 20 mg tablet Take 1 tablet (20 mg total) by mouth nightly 30 tablet 1 0 Active metoprolol XL (TOPROL-XL) 25 mg 24 hr tablet Take 1 tablet (25 mg total) by mouth daily with dinner Hold for HR < 60 30 tablet 1 0 Active spironolactone (ALDACTONE) 25 mg tablet Take 0.5 tablets (12.5 mg total) by mouth daily 15 tablet 1 0 Active magnesium oxide 500 mg capsule Take by mouth Active acetaminophen-codei ne (TYLENOL with CODEINE #3) 300-30 mg per tablet TAKE 1 TO 2 TABLETS BY MOUTH EVERY 6 HOURS NEEDED FOR PAIN 0 Active Active Problems Problem Noted Date Diagnosed Date S/P CABG (coronary artery bypass graft) 09/09/20 19 Assessment & Plan (09/11/2019 10:20 AM HALL CLERK): S/p bio MV replacement (31 mm MAGNA) [repair was aborted) and CABG x 1 (LION- LAD) on 08/26 See mitral valve replacement problem (above) Drainage from wound 09/09/2019 Assessment & Plan (09/11/2019 10:21 AM HALL CLERK): Prophylactic antibiotics, at present--linezolid & Zosyn WBC last night = 12.4--continues afebrile No sternal drainage or erythema CT scan on 09/08 with results including: Post CABG and mitral valve replacement changes with a small retrosternal gas/fluid collection that likely represents a small postoperative seroma and another smaller, discrete fluid collection along the left internal mammary artery compatible with a small hematoma. Atrial fibrillation ([facility]) 09/04/2019 Assessment & Plan (09/11/2019 10:35 AM HALL CLERK): Ongoing ATC telemetry--NSR at present Amiodarone 400 mg daily continues--Daily EKG checks for QTc TTE: EF 71%, no effusion, mod RV reduction Metoprolol 12.5 BID Assessment & Plan (09/07/2019 10:36 AM HALL CLERK): Reduced amiod to daily. Today is 480 TTE: EF 71%, no effusion, mod RV reduction Metoprolol 12.5 BID Patient does not have epicardial wires Acute renal failure with acu te tubular necrosis superimposed on stage 2 chronic kidney disease ([facility]) 08/27/2019 Overview (08/29/2019): Pre-op Clinical Program Director 0.89 w/ estimated GFR 89.9 (CKD II). Assessment & Plan (09/11/2019 10:22 AM HALL CLERK): Continue BID lasix and daily aldactone , at present Creatinine recovering - down to 1.41 last night UO approx 700 mls over past 24 hours Pt below pre op weight by approx 6 kg Assessment & Plan (09/08/2019 10:32 AM HALL CLERK): Continue the lasix and aldactone daily Creatinine recovering - 1.70 UO -2650 in 24 hours Pt below pre op weight by 6 kg Assessment & Plan (09/01/2019 3:03 PM HALL CLERK): Likely ATN following surgery with long CPB. Creatinine plateau ~ 5.2; now down trending 4.33 (4.91). FB (-) 2 liters with auto diuresis. - Avoid nephrotoxins as able - Renally dose all medications as appropriate - Optimize SBP for adequate renal perfusion, SBP > 110 - FBG (-) 1 to 2 Liters, allow auto diuresis - Repeat BMP at 1400. If creatinine with downward trend, change Epi wean to q12h hours. 1430: Remains net (-) 836 mL. BMP pending. Will F/U. Assessment & Plan (09/01/2019 5:25 AM HALL CLERK): Likely ATN following surgery with long CPB. Creatinine plateau ~ 5.2; now down trending 4.91. Significantly FB negative with auto diuresis. - Avoid nephrotoxins as able - Renally dose all medications as appropriate - Optimize SBP for adequate renal perfusion, SBP > 110 - Hold diuresis given significant auto diuresis 0400: Cr continues to down trend, no 4.33. Assessment & Plan (08/31/2019 7:20 AM HALL CLERK): Creatinine plateau ~ 5.2. FB negative 1.7L with auto diuresis. Likely ATN following surgery with long CPB. - Avoid nephrotoxins as able - Renally dose all medications as appropriate - Optimize SBP for adequate renal perfusion, SBP > 110 - Hold on diuresis for now with good urine output - BMP at noon Assessment & Plan (08/31/2019 2:04 AM HALL CLERK): Creatinine appears to have peaked at 5.2. Auto-diuresing. Likely ATN following surgery with long CPB. - Avoid nephrotoxins as able - Renally dose all medications as appropriate - Optimize SBP for adequate renal perfusion, SBP > 110 - Hold on diuresis for now with good urine output Assessment & Plan (08/30/2019 2:20 PM HALL CLERK): Creatinine 5.23 (4.87) but responded to 40 Lasix yesterday and urine output 100ml/hr now without diuretics. Likely ATN following surgery. - Repeat BMP @ 1000 and 1600 - Avoid nephrotoxins as able - Renally dose all medications as appropriate - Optimize SBP for adequate renal perfusion, SBP > 110 - Hold on diuresis for now with good urine output Assessment & Plan (08/30/2019 4:52 AM HALL CLERK): Creatinine continues to trend up. JAMES likely d/t ATN secondary to long CPB time (3h 20m). Urine output remains adequate. Continues to respond to lasix. Received 40 mg ivp today. - Avoid nephrotoxins as able - Renally dose all medications as appropriate - Optimize SBP for adequate renal perfusion, SBP > 110 - Maintain negative fluid balance Assessment & Plan (08/29/2019 1:24 PM HALL CLERK): Clinical Program Director up trending at 4.92 (4.67). JAMES likely d/t ATN secondary to long CPB time (3h 20m). UO ~ 80 ml/hr overnight after Lasix 40 IV x 1. - Avoid nephrotoxins as able - Renally dose all medications as appropriate - Optimize SBP for adequate renal perfusion, SBP > 110 - Repeat BMP at 1200 1130: Clinical Program Director down trending to 4.87 Assessment & Plan (08/28/2019 11:45 PM HALL CLERK): Likely ATN related to long CPB time (3hr 20min). Cr up to 4.26 from 3.81 yesterday. UOP ~20 mL/hr despite Lasix 20 mg IV x 1 this AM. Net +83 mL this afternoon. - Avoid nephrotoxins as able - BMP at 2000 - FBG even to slightly positive in the setting of a worsening JAMES - Renally dose all medications as appropriate - Optimize SBP for adequate renal perfusion 2000: UOP ~110 mL x1 hour s/p Lasix. Repeat labs revealed a creatinine of 4.6 (4.26), potassium 5.0 (4.6), serum bicarb 26 (22), and scvo2 71.9%. Patient is currently slightly hypertensive with a SBP 153. Per Dr. Albert, will hold Epi at 0.05, maintain a SBP < 160, and send AM labs at 0300. Assessment & Plan (08/28/2019 11:15 AM HALL CLERK): Likely ATN related to long CPB time (3hr 20min). Cr up to 3.81 from 2.5 yest. UOP ~20 mL/hr. Net +2.5 Liters yesterday - Avoid nephrotoxins as able - BMP at 1200 - FBG even to slightly positive in the setting of a worsening JAMES - Renally dose all medications as appropriate - Optimize SBP for adequate renal perfusion Assessment & Plan (08/28/2019 3:43 AM HALL CLERK): Likely ATN related to long CPB time. Cr up to 2.50 from 1.78. UOP ~20 mL/hr. Net +1.5 Liters. - Avoid nephrotoxins and hypotension - BMP at 2000 - FBG even to slightly positive in the setting of a worsening JAMES 2200: Spoke with Dr. Albert regarding up trending creatinine. Plan is to monitor UOP overnight, repeat labs including ScVO2 at 0200, and if worsening serum creatinine, increased serum sodium, decreased ScVO2, increased O2 requirements, and/or hyperkalemia, will consider Lasix challenge. 0320: Labs revealed creatinine up to 3.81; however, UOP remains ~ 20 mL/hr and serum bicarb 25, serum sodium 140, potassium 5.0. Patient remains on RA. No indication for emergent dialysis. Therefore, will continue monitoring UOP, CVP and BMP. Assessment & Plan (08/27/2019 1:45 PM HALL CLERK): Cr up to 1.72 from 1.1. Oliguric. Likely ATN related to long CPB time. - Avoid nephrotoxins and hypotension - BMP at noon - 40 Lasix x1 Assessment & Plan (08/27/2019 2:51 AM HALL CLERK): Cr up to 1.32 from 1.1 post-op. Very minimal urine output. Likely ATN related to long CPB time. -avoid nephrotoxins and hypotension -d/c ulises-op vanc -MAP > 70 to optimize renal perfusion Pleural effusion 08/27/2019 Assessment & Plan (09/11/2019 10:25 AM HALL CLERK): --CXR 09/07 Small bibasilar pleural effusions again noted. Mild right base atelectasis again seen. --CT chest w/ results including: A small left pleural effusion is mildly loculated and contains a few internal punctate gas bubbles, likely postsurgical in nature. No right pleural effusion --On RA, no complaints Assessment & Plan (09/08/2019 10:33 AM HALL CLERK): CXR 09/07 Small bibasilar pleural effusions again noted. Mild right base atelectasis again seen. On RA, no complaints Assessment & Plan (08/31/2019 7:22 AM HALL CLERK): CXR only with bibasilar atelectasis now. However, pleural chest tube output remains high ~ 800ml/24hrs. Remains on room air. Good urine output. - Hold on diuresis for now but aim for negative FB - Encourage incentive spirometry - Out of bed, physical therapy - Maintain pleural chest tubes to -20 suction Assessment & Plan (08/30/2019 2:24 PM HALL CLERK): CXR with small L effusion but on room air. 2+ BLE edema noted. FB (-) 228ml with Lasix 40 yesterday. - Encourage use of acapella - Out of bed, physical therapy - Consider diuretics if FB + or new O2 requirement - DC mediastinal chest tubes today per CTS, keep pleural tubes Assessment & Plan (08/29/2019 1:19 PM HALL CLERK): Patient uses 2L NC occasionally but mainly on room air. CXR w/ trace LLL effusion vs atelectasis. FB (-) 160 with Lasix 20 x 1 and then 40 x 1. - Encourage use of acapella - Out of bed, physical therapy - Wean O2 for oxygen saturations > 92% - FBG (=) d/t JAMES Assessment & Plan (08/28/2019 11:15 AM HALL CLERK): Patient uses 2L NC occasionally but mainly on room air. CXR w/ bibasilar atelectasis. - Encourage use of acapella - Out of bed, physical therapy - Wean O2 for oxygen saturations > 92% - 20 Lasix x1 Assessment & Plan (08/27/2019 1:44 PM HALL CLERK): Extubated 0100. On 4-6L NC. CXR w/ atelectasis. - Encourage incentive spirometry - Out of bed, physical therapy - Wean O2 for oxygen saturations > 92% - 40 Lasix x1 Acute blood loss anemia 08/26/2019 Overview (08/29/2019): Pre-op H/H 14.7/42.7. Has received 2U PRBCs intra-op. Assessment & Plan (09/09/2019 11:19 AM HALL CLERK): Expected, related to post op ABLA Stable, daily CBC No indication for transfusion today Assessment & Plan (09/05/2019 9:51 AM HALL CLERK): Stable, daily CBC No indication for transfusion today Assessment & Plan (08/31/2019 7:24 AM HALL CLERK): Expected anemia d/t surgical blood loss. H&H stable 05/21/28. High pleural chest tube output but serosanguinous. - No indication for transfusion - Daily CBC unless clinically indicated sooner Assessment & Plan (08/29/2019 1:33 PM HALL CLERK): Expected anemia d/t surgical blood loss. H/H stable at 9.4/28.6 (9.7/28.8). Moderate bleeding from CTs at 920ml over last 24hrs but mostly serosanguinous. No requirement of vasopressor support. - No clinical indication for transfusion at this time - Repeat CBC at 1200 to determine trend 1130: H/H 9.7/29.7. Will repeat CBC in am. Assessment & Plan (08/28/2019 11:15 AM HALL CLERK): Expected anemia following surgery. H&H stable 9.7/28.8 (10.4/31.0) - No indication for transfusion - Daily CBC Assessment & Plan (08/27/2019 1:45 PM HALL CLERK): Expected anemia following surgery. H&H stable. - No indication for transfusion - Daily CBC Assessment & Plan (08/27/2019 2:30 AM HALL CLERK): Expected following cardiac surgery. Moderate chest tube output. Post-op H/H 11.1/33. No pressors. - No acute indication for transfusion - Monitor CT output and notify CT surgery if > 150 for 2 consecutive hours - f/u am cbc Assessment & Plan (08/26/2019 8:02 PM HALL CLERK): Expected following cardiac surgery. H&H stable. Arrives to CTICU hemodynamically supported on Epi 0.06 mcg/kg/min. - No indication for transfusion, consider if patient becomes hemodynamically unstable with increased pressor requirements or hgb < 8 and symptomatic - CBC daily ETOH abuse 08/17/2019 Assessment & Plan (09/11/2019 10:34 AM HALL CLERK): Continue thiamine 100 mg po daily Continue folic acid 1mg po daily Assessment & Plan (09/02/2019 11:38 AM HALL CLERK): Continue thiamine 100 mg po daily Continue folic acid 1mg po daily Assessment & Plan (08/31/2019 7:20 AM HALL CLERK): Pt reports drinking 10 beers per day but quit about 10 days before surgery. Calm without tremor or delirium. - Thiamine, folate supplements - CIWA scale (has not required benzos) - Monitor for DTs Assessment & Plan (08/30/2019 2:21 PM HALL CLERK): Pt reports drinking 10 beers per day but quit about 10 days before surgery. Currently calm without tremor or delirium. - Thiamine, folate supplements - CIWA scale (has not required benzos) - Monitor for DTs Assessment & Plan (08/29/2019 1:20 PM HALL CLERK): Pt reports drinking 10 beers per day w/ associated very mild transaminitis. Currently calm without tremor or delirium. - Thiamine, folate supplements - [facility] protocol - Monitor for DTs Assessment & Plan (08/28/2019 11:15 AM HALL CLERK): Pt reports drinking 10 beers per day. Currently calm with mild tremor noted. - Thiamine, folate supplements - [facility] protocol - Monitor for DTs Assessment & Plan (08/27/2019 1:34 PM HALL CLERK): Pt reports drinking 10 beers per day. Currently calm with mild tremor noted. - Thiamine, folate - [facility] protocol - Monitor for DTs Assessment & Plan (08/27/2019 5:15 AM HALL CLERK): Reportedly 3-5 beers per day. -monitor for signs of DT's Assessment & Plan (08/18/2019 11:12 AM HALL CLERK): H/o heavy beer consumption > 12 beers/day -Begin abstinence, monitor for DTs -Denies symptoms at this time -Continue thiamine, folic acid, and prn Ativan S/P MVR (mitral valve replacement) 08/06/2019 Overview (08/28/2019): Pre-operative ECHO revealed preserved biventricular function, no significant tricuspid regurgitation, and severe mitral regurgitation due to P2 prolapse. Intra-op ECHO revealed evidence of normally functioning bio MV with MG=4 and no paravalvular leak on EPI 0.1 mcg/kg/min. Assessment & Plan (09/11/2019 10:20 AM HALL CLERK): S/p bio MV replacement (31 mm MAGNA) [repair was aborted) and CABG x 1 (LION- LAD) on 08/26 Ongoing post op care & monitoring (telemetry, VS, medication changes, I &O, weights) Ongoing aspirin, beta-alina, statin--no destini related to hypotension at times Amiodarone therapy with daily EKG QTc checks Aggressive pulm toilet with diuresis (BID lasix & spironolactone) Ongoing discharge planning--see separate sternal drainage note. Assessment & Plan (09/07/2019 10:36 AM HALL CLERK): S/p 08/26 aborted MV repair, bio MVR (31 mm MAGNA), and CABG x 1 (LION-LAD) No tubes, wires or lines Continue ASA, beta alina QTc 480 on daily amiod 400mg Assessment & Plan (09/01/2019 2:55 PM HALL CLERK): ICU Standards of Care: - ASA for anticoagulation - Statin daily for CABG - Hold B-alina until off inotrope support - Colace, Senna, and Miralax for bowel regimen (pt had BM yesterday) - Accuchecks BID - Cardiac diet - H2 alina for GI prophylaxis - SCDs and SQH for DVT ppx - PT for decreased mobility post surgery - Keep triple lumen per Dr. Albert Assessment & Plan (08/31/2019 7:25 AM HALL CLERK): ICU Standards of Care: - ASA for anticoagulation - Statin daily for CABG - Hold B-alina until off inotrope support - Colace, Senna, and Miralax for bowel regimen (pt had BM yesterday) - Accuchecks BID - Cardiac diet - H2 alina for GI prophylaxis - SCDs and SQH for DVT ppx - PT for decreased mobility post surgery Assessment & Plan (08/30/2019 2:25 PM HALL CLERK): ICU Standards of Care: - ASA for anticoagulation - Statin daily for CABG - Hold B-alina until off inotrope support - Colace, Senna, and Miralax for bowel regimen, will add dulcolax suppository x2 today as pt has not had BM yet - SSI for glycemic control Q4 hrs - Cardiac diet - H2 alina for GI prophylaxis - SCDs and SQH for DVT ppx - PT for decreased mobility post surgery Assessment & Plan (08/29/2019 1:16 PM HALL CLERK): ICU Standards of Care: - Cont ASA for anticoagulation - Start statin daily for S/P CABG - Hold B-alina until off inotrope support - Colace, Senna, and Miralax for bowel regimen - SSI for glycemic control Q4 hrs - ADAT - Home H2 alina - SCDs for DVT ppx - Cont SQH for DVT ppx - PT for decreased mobility post surgery - SBP goal < 160 Assessment & Plan (08/28/2019 11:04 PM HALL CLERK): s/p MVR and CABG x 1. He remains hemodynamically supported on Epi at 0.05 mcg/kg/min with an ScVO2 71.9%. ICU standards of care include: - ASA Daily - Maintain a goal SBP < 160 - Eventually BB initiation once off inotropic support - Statin on hold 2/2 elevated LFTs - Colace, Senna, and miralax BID for bowel regimen - HD SSI for glycemic control Q4 hrs - ADAT - GI ppx with H2 alina - SCDs and SQH for DVT ppx. - PT for decreased mobility Assessment & Plan (08/28/2019 11:16 AM HALL CLERK): s/p MVR and CABG x 1. He remains hemodynamically supported on Epi at 0.05 mcg/kg/min with an ScVO2 70.3%. ICU standards of care include - ASA Daily - Maintain a goal SBP < 140 - Eventually BB initiation once off inotropic support - Statin on hold 2/2 elevated LFTs - Colace, Senna, and miralax for bowel regimen - SSI for glycemic control Q4 hrs - ADAT - GI ppx with H2 alina - SCDs for DVT ppx, SQH TID - PT for decreased mobility Assessment & Plan (08/28/2019 3:47 AM HALL CLERK): s/p MVR. He remains hemodynamically supported on Epi at 0.05 mcg/kg/min with an ScVO2 74.6%. - ASA Daily - Maintain a goal SBP < 140 - Eventually BB initiation once off inotropic support Assessment & Plan (08/26/2019 7:36 PM HALL CLERK): s/p MVR. Intra-op ECHO revealed evidence of normally functioning bio MV with MG=4 and no paravalvular leak on EPI .1 mcg/kg/min. He arrives hemodynamically supported on Epi at 0.04 mcg/kg/min. - ASA 300 mg ND now - ASA Daily - Maintain a goal SBP < 140 - Eventually BB initiation once off inotropic support Assessment & Plan (08/19/2019 12:32 PM HALL CLERK): 06/23 TTE shows preserved biventricular function and severe mitral regurgitation due to P2 prolapse -Plan for MV repair/ replacement -NPO at midnight -PFTs and carotids complete -Baseline labs, EKG, CXR obtained - consents signed Resolved Problems Problem Noted Date Diagnosed Date Resolved Date Thrombocytopenia 08/29/2019 08/30/2019 Assessment & Plan (08/29/2019 1:35 PM HALL CLERK): Pre-op Plt 112. Has received 3U Plts intra-op. Expected thrombocytopenia d/t surgical blood loss, CPB in the setting of chronic thrombocytopenia most likely d/t ETOH abuse. Plts up trending 141 (119). No clinical sign of significant bleeding or coagulopathy. - No clinical indication for transfusion at this time - CBC in am or sooner if clinically indicated UTI (urinary tract infection) 08/29/2019 09/02/2019 Assessment & Plan (08/31/2019 7:23 AM HALL CLERK): Garcia cultures sent 08/29 in setting of worsening leukocytosis. Started on ceftriaxone for UA with WBC, leuk esterase, and bacteria. Urine culture finalized negative. Ceftriaxone DC'd last night. WBC continues to trend down. - f/u blood cultures Assessment & Plan (08/31/2019 3:36 AM HALL CLERK): Blood cultures and UA sent yesterday in setting of worsening leukocytosis. UA with WBC, leuk esterase, and bacteria. Started on empiric ceftriaxone. WBC continues to trend down, now 12.6. Remains afebrile. Urine culture now final negative - d/c ceftriaxone - f/u blood cultures Assessment & Plan (08/30/2019 2:30 PM HALL CLERK): Blood cultures and UA sent yesterday in setting of worsening leukocytosis. UA with WBC, leuk esterase, and bacteria. Started on empiric ceftriaxone. WBC down to 18.5 (22.4) today, afebrile. - f/u urine culture and blood culture results - Ceftriaxone for 5 day course unless urine culture results negative Assessment & Plan (08/30/2019 5:12 AM HALL CLERK): WBC peaked at 22 today. Afebrile. UA w/ 11-20 WBCs and RBCs, 1+ bact, 2+ leuk esterase, 2+ yeast, nitrite (-). Culture pending. Leukocytosis is likely inflammatory s/p invasive surgery w/ pressor support, however, could be UTI. Ceftriaxone initiated awaiting urine culture results. Blood cultures also sent. - f/u urine culture and blood culture results - continue ceftriaxone Assessment & Plan (08/29/2019 6:24 PM HALL CLERK): WBC up trending at 19.9 (17.8). Tm 36.8/Tc 36.7. Leukocytosis is likely inflammatory s/p invasive surgery w/ pressor support, however, WBC continues to rise. - Obtain UA w/ reflex to culture 1130: WBC up to 22.4. UA w/ 11-20 WBCs and RBCs, 1+ bact, 2+ leuk esterase, 2+ yeast, nitrite (-). Culture pending. Pt has non-productive cough but will obtain TA if able. Will send blood cultures. 1400: Per Dr. Albert, start Ceftriaxone pending urine culture results. Metabolic acidosis, increased anion gap 08/27/2019 08/28/2019 Assessment & Plan (08/27/2019 1:45 PM HALL CLERK): Resolving. Lactate down to 5 from 11. - No need to trend lactate - Noon BMP Assessment & Plan (08/27/2019 2:09 AM HALL CLERK): Likely related to elevated lactate at 11, gap 18. Received 2 amps of bicarb and vent settings increased to normalize pH. Urine output now very minimal, last hour 5 ml. -250 LR bolus -repeat ABG and lactate 2014: ABG 7.38, 34, 111, 20. Lactate down trending, now 9. Now appears euvolemic. Low PPV. Lactate will likely improve with time. 2114: Discussed pt status with Dr. Albert who requests additional amp bicarb if base excess unchanged on next abg. 2215: Base excess unchanged at -7. Will give additional amp of bicarb. 0100: Lactate down to 5.4. Base excess improved to -2. Pt tolerating PSV trial very well. Will turn off precedex and extubate when pt awakens and follows commands again. Hypophosphatemia 08/27/2019 08/27/2019 Assessment & Plan (08/27/2019 2:32 AM HALL CLERK): Initial phos 2.8. Repeat down to 0.7. Labs resent and result unchanged at 0.7. -30 mMol KPhos Hypokalemia 08/27/2019 08/27/2019 Assessment & Plan (08/27/2019 2:44 AM HALL CLERK): Post-op WBK 5.1. Underlying rhythm NSR 70's with frequent PAC's. Pt receiving 60 mEq IV KCl. -f/u WBK after repletion Hyperglycemia 08/27/2019 08/31/2019 Assessment & Plan (08/30/2019 2:27 PM HALL CLERK): No prior history of DM. Likely exacerbated by Epi and inflammatory response following surgery. BG 100-130s last 24 hours. - Cont SSI QID Assessment & Plan (08/29/2019 1:30 PM HALL CLERK): No prior history of DM. Hyperglycemia in the post-operative period likely inflammatory response s/p invasive surgery w/ pressor support. - Cont SSI - Restart Insulin gtt for BS > [address] ICU protocol Assessment & Plan (08/28/2019 11:47 PM HALL CLERK): No history of DM. Likely related to stress response. Currently, BG overnight 129-150. - HD SSI to high dose to maintain BS < 180 - Accuchecks Q 4 Assessment & Plan (08/28/2019 11:16 AM HALL CLERK): No history of DM. Likely related to stress response. BG overnight 150-190. - Increase SSI to high dose to maintain BS < 180 -Accuchecks Q 4 Assessment & Plan (08/28/2019 3:49 AM HALL CLERK): No history of DM. Likely related to stress response. BG overnight > 180. - Continue glycemic control with SSI per CTICU protocol to maintain BG <180 Assessment & Plan (08/27/2019 2:53 AM HALL CLERK): Arrived to ICU on insulin gtt. No history of DM. Likely related to stress response. -continue insulin gtt per ICU protocol. Acute post-operative pain 08/26/2019 Assessment & Plan (09/02/2019 11:38 AM HALL CLERK): Continue prn pain medication Assessment & Plan (08/31/2019 7:20 AM HALL CLERK): Pain well controlled on current regimen. - Scheduled APAP x 5 days - PRN Oxycodone - Lidocaine patches to chest wall Assessment & Plan (08/30/2019 2:22 PM HALL CLERK): Pain well controlled on current regimen. - Scheduled APAP x 5 days - PRN Oxycodone - Lidocaine patches to chest wall Assessment & Plan (08/29/2019 1:04 PM HALL CLERK): Expected post-operative pain S/P sternotomy for CT Sx. Pain well controlled on current regimen. - Cont scheduled APAP - Cont prn Oxy - Cont Lidocaine patches Assessment & Plan (08/28/2019 11:15 AM HALL CLERK): Expected postop pain. Had increased incisional pain overnight requiring one dose of Dilaudid, otherwise pain well controlled. - Scheduled Tylenol and lidocaine patches - PRN oxycodone for breakthrough Assessment & Plan (08/27/2019 1:45 PM HALL CLERK): Expected postop pain. Well controlled. - Scheduled Tylenol and lidocaine patches - PRN oxycodone with dilaudid for breakthrough Assessment & Plan (08/27/2019 2:25 AM HALL CLERK): Sedated with propofol - changed propofol to precedex in anticipation of extubation - prn fentanyl - Once extubated, change fentanyl to dilaudid - add scheduled tylenol and prn oxycodone when able to safely swallow Assessment & Plan (08/26/2019 7:38 PM HALL CLERK): He arrives intubated and sedated on Dex gtt. Resting with eyes closed on exam. Appears to be comfortable on exam. - Discontinue Dex gtt - Initiate prop gtt for sedation until acidosis improves - Once extubated will change pain medication regimen to the following: - PRN oxycodone - Dilaudid PRN for breakthrough Acute respiratory failure 08/26/2019 Assessment & Plan (08/27/2019 2:19 AM HALL CLERK): Post-procedural short-term ventilator support with anticipated extubation. Vent settings increased and 2 amps bicarb administered after initial abg revealed significant metabolic acidosis. - Once acidosis and lactate improving, plan for PSV trial with goal of extubation. - Change propofol to precedex 2015: Repeat ABG with normal pH but significant metabolic acidosis remains. See cardiogenic shock for subsequent interventions. 0105: Extubated without incident Assessment & Plan (08/26/2019 8:23 PM HALL CLERK): Post-procedural short-term ventilator support with anticipated extubation. CXR revealed mild bibasilar atlectasis. Arrives to CTICU intubated and sedated on Dex gtt. - FBG even to slightly positive, auto-diuresis - Once acidosis resolves and lactate is improving, plan for PSV trial with goal of extubation. - PT/OOBTC/AMB - Wean FiO2 for sats > 92% - Per Dr. Albert, maintain TV~700, RR~22, and PEEP 7.5. - Obtain q2h lactate and ABG - Per Dr. Albert, strip CT [id number] 1720: POC revealed pH 7.28/ meAE722/HCO3 20/ paO2 100--> 2 amps bicarb and 500 mL albumin x1. Will repeat ABG, lactate, Hct in 1 hour 1730: Labs revealed Hgb 11.5 and normal coags; however, CT output ~170 mL in [address] Albert at bedside. Plan is to repeat coags, CBC, and ABG now. 1800: CT output improving MCT 50 mL and PCT 10 mL. POC revealed pH 7.38, Hgb 11.5, lactate 11--> spoke w/ Dr. Albert. Will administer 500 mL albumin x1 and repeat all labs including whole blood lactate, ABG, coags, and ScVO2 at 2000. Then, Dr. Albert will call and discuss labs and extubation plan at 2100. 1954: Repeat labs revealed improving pH and improving lactate 9 (11) s/p albumin. Myocardial stunning 08/26/2019 09/02/20 19 Overview (08/29/2019): Post-op BRISEIDA: Nl fnx of bio MV w/ max gradiant of 4 and no paravalvular leak, nl LV/RV sys fnx, dilated LA and mild RV dilation, mild /AI, trace TR and mild PI, mild plaque to descending aorta, no KETTY thrombosis, no PFO on Epi of 0.08 mcg/kg/min. Assessment & Plan (09/01/2019 2:49 PM HALL CLERK): TTE 08/29 with LVEF 54%, normal RV function, mild AR, mild TR; paradoxical septal motion noted. Yesterday, Epi decreased to 0.04 in the setting of hypertension. - Wean Epi 0.01 mcg q24hr for an ScvO2 > 65% per Dr. Patino - If 1400 BMP reveals a downward trending creatinine level, will change Epi wean to 0.01 q12h for an ScvO2 > 65%. - Decrease Amio dose to 400 mg Daily for afib prophylaxis - FBG (-) 1 to 2 Liters with auto diuresis Assessment & Plan (09/01/2019 2:43 AM HALL CLERK): TTE 08/29 with LVEF 54%, normal RV function, mild AR, mild TR; paradoxical septal motion noted. Epi decreased to 0.04 today in light of ongoing hypertension. - Keep Epi at 0.04 mcg/kg/min per Dr. Patino in the setting of JAMES - Amio 400 TID for afib prophylaxis - Hold on diuresis with good auto diuresis Assessment & Plan (08/31/2019 7:19 AM HALL CLERK): Remains on epi 0.05 mcg/kg/min. TTE 08/29 with LVEF 54%, normal RV function, mild AR, mild TR; paradoxical septal motion noted. ScvO2 65%. FB negative 1.7L with auto-diuresis, also high pleural CT output (800ml). - Keep Epi at 0.05 mcg/kg/min per Dr. Patino in the setting of JAMES - Amio 400 TID for afib prophylaxis - 12 lead EKG to evaluate QTc (440s prior) - Hold on diuresis with good auto diuresis Assessment & Plan (08/31/2019 2:25 AM HALL CLERK): Remains on epi 0.05 mcg/kg/min. TTE 08/29 with LVEF 54%, normal RV function, mild AR, mild TR; paradoxical septal motion noted. ScvO2 > 60. - Keep Epi at 0.05 mcg/kg/min per Dr. Patino in the setting of JAMES - Amio 400 TID for afib prophylaxis (QTc 440s on 12 lead EKG yesterday) - Hold on diuresis for now with good auto diuresis Assessment & Plan (08/30/2019 2:19 PM HALL CLERK): Remains on ep 0.05 mcg/kg/min. TTE 08/29 with LVEF 54%, normal RV function, mild AR, mild TR; paradoxical septal motion noted. ScVO2 75% this AM. FB - 228ml with 40 Lasix yesterday. - Keep Epi at 0.05 mcg/kg/min per Dr. Patino in the setting of JAMES - Amio 400 TID for afib prophylaxis (QTc 440s on 12 lead EKG yesterday) - Hold on diuresis for now with urine output 100ml/hr Assessment & Plan (08/30/2019 5:06 AM HALL CLERK): Remains on ep 0.05 mcg/kg/min. TTE today with LVEF 54%, normal RV function, mild AR, mild TR; paradoxical septal motion noted. - Keep Epi at 0.05 mcg/kg/min per Dr. Patino in the setting of worsening JAMES - Amio 400 TID for afib prophylaxis - Maintain negative fluid balance Assessment & Plan (08/29/2019 1:13 PM HALL CLERK): Overall improving, currently on Epi 0.05. ScVO2 71.9, SBP 132-163. CXR w/ trace LLL effusion. JAMES w/ slight worsening though, but most likely d/t ATN from CPB and not active cardiogenic shock. - Obtain formal TTE today - Keep Epi at 0.05 mcg/kg/min per Dr. Patino in the setting of worsening JAMES - AAI @ 90 to promote cardiac output and to prevent Afib - Amio 400 TID for afib prophylaxis per Bety - Maintain a FBG even to slightly positive - Continue IVF at KVO - Repeat ScVO2 and BMP at 1200 1130: Clinical Program Director improved to 4.87 (4.92) but ScVO2 59.3. No increased oxygenation needed. TTE still pending. Assessment & Plan (08/28/2019 11:42 PM HALL CLERK): Improving. Postop echo w/ normal biventricular function on Epi at 0.06. Today, UOP ~20 mL/hr despite Lasix 20 mg IV x 1 this AM. Remains on Epi 0.05 mcg/kg/min with an ScVO2 71.9%. - Hold Epi at 0.05 mcg/kg/min per Dr. Patino in the setting of worsening JAMES - AAI @ 90 to promote cardiac output and to prevent Afib - Amio 400 TID for afib prophylaxis per Bety - Maintain a FBG even to slightly positive with Lasix 40mg IV x 1 - Continue IVF at KVO - Repeat ScVO2 and BMP at 2000 2000: UOP ~110 mL x1 hour s/p Lasix. Repeat labs revealed a creatinine of 4.6 (4.26), potassium 5.0 (4.6), serum bicarb 26 (22), and scvo2 71.9%. Patient is currently slightly hypertensive with a SBP 153. Per Dr. Albert, will hold Epi at 0.05, maintain a SBP < 160, and send AM labs at 0300. Assessment & Plan (08/28/2019 11:15 AM HALL CLERK): Resolving. Postop echo w/ normal biventricular function on Epi at 0.06. Remains on Epi 0.05 mcg/kg/min with an ScVO2 70.6%. - Hold Epi at 0.05 mcg/kg/min today per Manier for worsening JAMES - AAI @ 90 to promote cardiac output and to prevent Afib - Amio 400 TID for afib prophylaxis per Maniar -Lasix 20mg IV x 1 -Decrease IVF to KVO -ScVO2 at 1200 Assessment & Plan (08/28/2019 3:51 AM HALL CLERK): Improving. Postop echo w/ normal biventricular function on Epi at 0.06. Remains on Epi 0.05 mcg/kg/min with an ScVO2 74.6%. - Hold Epi at 0.05 mcg/kg/min to promote forward flow in the setting of a worsening JAMES per Maniar - AAI @ 90 to promote cardiac output and to prevent Afib - Amio 400 TID for afib prophylaxis per Maniar - FBG even to slightly positive in the setting of worsening JAMES 2200: Spoke with Dr. Albert regarding up trending creatinine. Plan is to monitor UOP overnight, repeat labs including ScVO2 at 0200, and if worsening serum creatinine, increased serum sodium, decreased ScVO2, increased O2 requirements, and/or hyperkalemia, will consider Lasix challenge. 0320: Labs revealed creatinine up to 3.81; however, UOP remains ~ 20 mL/hr and serum bicarb 25, serum sodium 140, potassium 5.0, and ScVO2 70%. Patient remains on RA. No indication for emergent dialysis. Therefore, will continue monitoring UOP, CVP, ScVO2 and BMP. Continue Epi at 0.05 mcg/kg/min. Assessment & Plan (08/27/2019 1:44 PM HALL CLERK): Resolving. Postop echo w/ normal biventricular function on Epi at 0.06. CI > 3. Significant lactic acidosis postop now improving. - DC swan/cordis - Keep Epi 0.06 today per Maniar - AAI @ 90 - Amio 400 TID for afib prophylaxis per Maniar - 40 Lasix x1 Assessment & Plan (08/27/2019 1:54 AM HALL CLERK): Post-op echo with normal biventricular function and no paravalvular leak. CI > 3 since ICU arrival on epi 0.06 mcg/kg/min. No pressor requirements. Significant lactic acidosis with lactate 11 but extremities warm and well perfused. - no epi wean overnight per CT surgeon - Maintain SBP < 140, nicardipine gtt as needed - Continue AAI pacing at 86 (underlying NSR 70's) Assessment & Plan (08/26/2019 8:17 PM HALL CLERK): S/p CABG x1 and MVR.He received a total of 2 units PRBCs, 3 units plt, 2 units FFP, 450 mL cell saver, 20 cryo, and 2 liter crystalloids. Intra-op ECHO revealed evidence of normally functioning bio MV with MG=4 and no paravalvular leak on EPI .1 mcg/kg/min. He arrives intubated and sedated on Dex gtt and hemodynamically supported on Epi 0.046 mcg/kg/min. - stat ScVO2, whole blood lactate, ABG - Hold Epi at 0.06 mcg/kg/min overnight - Maintain a SBP < 140, nicard gtt as needed - AAI pace at 86 (underlying NSR 77 bpm) - trend lactate and ABG q2h - will hold off on extubation until acidosis resolves and lactate is improving CAD (coronary artery disease) 08/18/2019 09/09/2019 Assessment & Plan (09/06/2019 11:46 AM HALL CLERK): S/p CABG x1 on 08/26 On asa, statin, BB Wires out, TTE done Assessment & Plan (08/28/2019 11:16 AM HALL CLERK): S/p coronary bypass grafting x1 (LION to the LAD). Post-op care to include: - ASA 81 mg daily - Eventual BB once off inotropic support - Hold DESTINI/ARB in the post-op setting - Statin on hold 2/2 elevated LFTs - Pepcid for GI ppx - SCDs and subcutaneous heparin for DVT ppx - Completed ulises-op antibiotics - PT for decreased mobility after surgery Assessment & Plan (08/28/2019 3:45 AM HALL CLERK): S/p coronary bypass grafting x1 (LION to the LAD). Post-op care to include: - ASA 81 mg in the setting of mildly elevated LFTs - Eventual BB once off inotropic support - Hold DESITNI/ARB in the post-op setting - Pepcid for GI ppx - SCDs and subcutaneous heparin for DVT ppx - ulises-op Cefazolin x24 hrs for surgical site infection ppx complete - PT for decreased mobility after surgery Assessment & Plan (08/27/2019 1:35 PM HALL CLERK): S/p coronary bypass grafting x1 (LION to the LAD). Post-op care to include: - ASA 81 mg PO Daily POD #1 - Hold statin today with mildly elevated LFTs - Eventual BB once off inotropic support - Hold DESTINI/ARB in the post-op setting - Pepcid for GI ppx - SCDs for DVT ppx - Start SQH - Continue ulises-op Cefazolin x24 hrs for surgical site infection ppx - PT to begin POD #1 for decreased mobility after surgery Assessment & Plan (08/26/2019 7:36 PM HALL CLERK): S/p coronary bypass grafting x1 (LION to the LAD). Post-op care to include: - ASA 300 mg ND x1 - ASA 81 mg PO Daily POD #1 - Statin POD #1 - Eventual BB once off inotropic support - Hold DESTINI/ARB in the post-op setting - Pepcid for GI ppx - SCDs for DVT ppx - Continue ulises-op Cefazolin and Vancomycin x24 hrs for surgical site infection ppx - PT to begin POD #1 for decreased mobility after surgery Assessment & Plan (08/18/2019 11:10 AM HALL CLERK): 06/02 left heart catheterization showed a proximal LAD lesion with a right dominant system -plan for 08/19 CABGx1 LION to the LAD anastomosis -continue asprin Hypertension 08/17/2019 09/09/2019 Assessment & Plan (08/18/2019 11:11 AM HALL CLERK): Systolic BP 101-146 this admission -Continue Toprol 12.5 BID -Hold DESTINI-I in the pre op setting Non-rheumatic mitral regurgitation 05/01/2019 09/09/2019 Preop cardiovascular exam Immunizations Name Administration Dates Next Due Influenza, Unspecified 06/17/2019 Surgical History Surgery Date Site/Laterality Comments REPLACEMENT TOTAL KNEE Left CARDIAC CATHETERIZATION 05/18/2019 - 06/16/2019 COLONOSCOPY KNEE ARTHROSCOPY Right FEMUR FRACTURE SURGERY Right HIP OPEN REDUCTION TIBIA FRACTURE SURGERY Right Medical History Medical History Date Comments Hypertension Heart murmur Acute respiratory failure (HCC) 08/26/2019 Non-rheumatic mitral regurgitation 05/01/2019 CAD (coronary artery disease) 08/18/2019 Family History Medical History Relation Name Comments Heart failure Brother Heart failure Father Stroke Father Relation Name Status Comments Brother (Age 68) heart fail ure Father (Age 77) heart fail ure Mother (Age 89) cancer Social History Tobacco Use Types Packs/Day Years Used Date Smoking Tobacco: Never Smokeless Tobacco: Never Tobacco Cessation:Counseling Given: No Alcohol Use Standard Drinks/Week Comments Yes 70 (1 standard drink = 0.6 oz pu re alcohol) 10 a day PHQ-2 Answer Date Recorded PHQ-2 Total Score (If total score is 3 or more points, staff should administer the PHQ-9) 0 12/30/2019 Personal Safety Answer Date Recorded Getting School Help Needed Not on file 11/30 Sex and Gender Information Value Date Recorded Sex Assigned at Not on file Legal Sex Male 2:58 AM HALL CLERK Gender Identity Not on file Sexual Orientation Not on file Obstetrics History Last Filed Vital Signs Vital Sign Reading Time Taken Comments Blood Pressure 117/66 06/17/2020 1:10 PM CDT Pulse 88 06/17/2020 1:10 PM CDT Temperature 36.5 C (97.7 F) 06/17/2020 12:10 PM CDT Respiratory Rate 29 06/17/2020 1:10 PM CDT Oxygen Saturation 93% 06/17/2020 1:10 PM CDT Inhaled Oxygen Concentration - - Weight 118.8 kg (262 lb) 07/09/2024 7:40 AM CDT Height 185.4 cm (6' 1 ) 07/09/2024 7:40 AM CDT Body Mass Index 34.57 07/09/2024 7:40 AM CDT Plan of Treatment Health Maintenance Due Date Last Done Comments Hepatitis C Screening 1945 Hepatitis B Screening 1965 Well Visit 65+ 2012 Depression Screening 12/29/2020 12/30/2019 Fall Risk Assessment 06/17/2021 06/17/2020, 12/30/19 Covid-19 Vaccine (2023-2 5 season) 2024 08/21/2021, 12/04/2020, 11/12/2020 Influenza Vaccine (#1) 2024 , 07/08/2020, 06/17/2019, Additional history exists DTaP/Tdap/Td Vaccine (2 - Td or Tdap) 09/02/2031 09/02/2021 Pneumococcal vaccine 65+ Completed 10/30/2019, 06/18 Zoster Vaccine Completed 06/27/2023, 04/18/2023 Medical Devices Implanted Type Area Customer Operations Representative Device Identifier Shelf Expiration Date Model / Serial / Lot [employer] [id number] Bobby s Perimount Magna 31mm Bioprosthesis Ease Heart - [id number] - [id number] Implanted:Qty: 1 on 08/26/2019 by Felton Albert MD at [facility] N/A: Heart [employer] 01/01/2022 [id number] / [id number] / Insurance [facility]IANG [address] [facility] Advance Directives For more information, please contact: [phone] * Full Code (Latest Code Status on File) Date Activated Date Inactivated Comments 09/12/2019 7:41 PM * Full Code Date Activated Date Inactivated Comments 08/26/2019 5:35 PM 09/11/2019 7:26 PM * Full Code Date Activated Date Inactivated Comments 08/17/2019 11:35 AM 08/20/2019 3:26 PM Care Teams Animal Tech Relationship Specialty Start Date End Date Abelino Hudson MD [address] [place] [address] PCP - General Internal Medicine 03/03/19 Cesar Andres MD [address] [address] Consulting Physician Cardiology 08/07/19
--- OUTSIDE RECORDS SUMMARY | 2024-10-29 12:41 | XMS_ITS | Continuity of Care Document ---
Author Organization [facility] Address [address] [place] [address] [place] [address] Phone Care Team Providers Care Heat And Frost Insulator Name Role Phone Juan C Fernandez Unavailable Unavailable Procedures Procedure Date Post-op Follow-up Visit Post-op Follow-up Visit Remove Cataract, Insert Lens IOLMaster Office Consultation Advance Directives Directive Yes / No Effective Date File Name No Information Encounters Encounter Description Practice Location Reason(s) For Visit Diagnoses Date Provider Providers Copied on Encounter [facility], [address] [place] [address] [address], [place], [place], [id number], tel:[phone] SEC [facility] No Information Dec-0 8-200 9 Krishnasamy Juan C. [address] [place] [address], [facility], [place]. tel:[phone] Referring Provider: Edd Shahid OD F, [address] [facility] [place], [place], [facility]. tel:[phone] [facility], [address], [place], [place], [id number], [place] tel:[phone] SEC [facility] No Information Dec-0 2-200 9 Krishnasamy Juan C. [facility] [address], [facility], [place]. tel:[phone] Referring Provider: Edd Shahid OD F, [address] [facility] [address], [place], [place], [facility]. tel:[phone] [facility], [address], [place], [place], [id number], tel:[phone] [facility] No Information 0 1-200 9 Krishnasamy Juan C. [address] [place] [address], [facility], . tel:[phone] Referring Provider: Edd Shahid OD F, [address] [facility], [place], [place], [facility]. tel:[phone] [facility] Eye [facility], [address], [place], [place], [id number], tel:[phone] [facility] No Information 8200 9 Krishnasamy Juan C. [address] [place] [address], [facility], . tel:[phone] Referring Provider: Edd Shahid OD F, [address] [facility], [place], [place], [facility]. tel:[phone] Office Consultation [facility], [address] [facility] [address], [place], [place], [id number], tel:[phone] [facility] No Information 200 9 Krishnasamy Juan C. [address] [place] [address], [facility], . tel:[phone] Referring Provider: Edd Shahid OD F, [address] [facility], [place], [place], [facility]. tel:[phone] Family History Family Member Type Diagnosis Age At Onset No Information Payers Payer name Insurance type Covered alliance party ID Authoriza tion(s) No Information Social [...]
--- OUTSIDE RECORDS SUMMARY | 2024-10-29 12:42 | XMS_ITS | Referral Summary ---
Author Organization [facility] [address] Address [address] [place] [address] Care Team Providers Care Taxation Economist Name Role Phone Abelino Hudson MD Primary Care Provider [phone] Cesar Andres MD Unavailable [phone] Allergies No known active allergies Medications allopurinol [...] 19 Assessment & Plan (09/11/2019 10:20 AM SKIN DRIER): S/p bio MV replacement (31 mm MAGNA) [repair was aborted) and CABG x 1 (LION- LAD) on 08/26 See mitral valve replacement problem (above) Drainage from wound 09/09/2019 Assessment & Plan (09/11/2019 10:21 AM SKIN DRIER): Prophylactic antibiotics, at present--linezolid & Zosyn WBC last night = 12.4--continues afebrile No sternal drainage or erythema CT scan on 09/08 with results including: Post CABG and mitral valve replacement changes with a small retrosternal gas/fluid collection that likely represents a small postoperative seroma and another smaller, discrete fluid collection along the left internal mammary artery compatible with a small hematoma. Atrial fibrillation ([facility]) 09/04/2019 Assessment & Plan (09/11/2019 10:35 AM SKIN DRIER): Ongoing ATC telemetry--NSR at present Amiodarone 400 mg daily continues--Daily EKG checks for QTc TTE: EF 71%, no effusion, mod RV reduction Metoprolol 12.5 BID Assessment & Plan (09/07/2019 10:36 AM SKIN DRIER): Reduced amiod to daily. Today is 480 TTE: EF 71%, no effusion, mod RV reduction Metoprolol 12.5 BID Patient does not have epicardial wires Acute renal failure with acu te tubular necrosis superimposed on stage 2 chronic kidney disease ([facility]) 08/27/2019 Overview (08/29/2019): Pre-op Holter Technician 0.89 w/ estimated GFR 89.9 (CKD II). Assessment & Plan (09/11/2019 10:22 AM SKIN DRIER): Continue BID lasix and daily aldactone , at present Creatinine recovering - down to 1.41 last night UO approx 700 mls over past 24 hours Pt below pre op weight by approx 6 kg Assessment & Plan (09/08/2019 10:32 AM SKIN DRIER): Continue the lasix and aldactone daily Creatinine recovering - 1.70 UO -2650 in 24 hours Pt below pre op weight by 6 kg Assessment & Plan (09/01/2019 3:03 PM SKIN DRIER): Likely ATN following surgery with long CPB. [...] F/U. Assessment & Plan (09/01/2019 5:25 AM SKIN DRIER): Likely ATN following surgery with long CPB. [...] 4.33. Assessment & Plan (08/31/2019 7:20 AM SKIN DRIER): Creatinine plateau ~ 5.2. FB negative 1.7L with auto diuresis. Likely ATN following surgery with long CPB. - Avoid nephrotoxins as able - Renally dose all medications as appropriate - Optimize SBP for adequate renal perfusion, SBP > 110 - Hold on diuresis for now with good urine output - BMP at noon Assessment & Plan (08/31/2019 2:04 AM SKIN DRIER): Creatinine appears to have peaked at 5.2. Auto-diuresing. Likely ATN following surgery with long CPB. - Avoid nephrotoxins as able - Renally dose all medications as appropriate - Optimize SBP for adequate renal perfusion, SBP > 110 - Hold on diuresis for now with good urine output Assessment & Plan (08/30/2019 2:20 PM SKIN DRIER): Creatinine 5.23 (4.87) but responded to 40 [...] output Assessment & Plan (08/30/2019 4:52 AM SKIN DRIER): Creatinine continues to trend up. JAMES likely d/t ATN secondary to long CPB time (3h 20m). Urine output remains adequate. Continues to respond to lasix. Received 40 mg ivp today. - Avoid nephrotoxins as able - Renally dose all medications as appropriate - Optimize SBP for adequate renal perfusion, SBP > 110 - Maintain negative fluid balance Assessment & Plan (08/29/2019 1:24 PM SKIN DRIER): Holter Technician up trending at 4.92 (4.67). JAMES likely d/t ATN secondary to long CPB time (3h 20m). UO ~ 80 ml/hr overnight after Lasix 40 IV x 1. - Avoid nephrotoxins as able - Renally dose all medications as appropriate - Optimize SBP for adequate renal perfusion, SBP > 110 - Repeat BMP at 1200 1130: Holter Technician down trending to 4.87 Assessment & Plan (08/28/2019 11:45 PM SKIN DRIER): Likely ATN related to long CPB time [...] 0300. Assessment & Plan (08/28/2019 11:15 AM SKIN DRIER): Likely ATN related to long CPB time [...] perfusion Assessment & Plan (08/28/2019 3:43 AM SKIN DRIER): Likely ATN related to long CPB time. [...] BMP. Assessment & Plan (08/27/2019 1:45 PM SKIN DRIER): Cr up to 1.72 from 1.1. Oliguric. Likely ATN related to long CPB time. - Avoid nephrotoxins and hypotension - BMP at noon - 40 Lasix x1 Assessment & Plan (08/27/2019 2:51 AM SKIN DRIER): Cr up to 1.32 from 1.1 post-op. Very minimal urine output. Likely ATN related to long CPB time. -avoid nephrotoxins and hypotension -d/c ulises-op vanc -MAP > 70 to optimize renal perfusion Pleural effusion 08/27/2019 Assessment & Plan (09/11/2019 10:25 AM SKIN DRIER): --CXR 09/07 Small bibasilar pleural effusions again noted. Mild right base atelectasis again seen. --CT chest w/ results including: A small left pleural effusion is mildly loculated and contains a few internal punctate gas bubbles, likely postsurgical in nature. No right pleural effusion --On RA, no complaints Assessment & Plan (09/08/2019 10:33 AM SKIN DRIER): CXR 09/07 Small bibasilar pleural effusions again noted. Mild right base atelectasis again seen. On RA, no complaints Assessment & Plan (08/31/2019 7:22 AM SKIN DRIER): CXR only with bibasilar atelectasis now. However, pleural chest tube output remains high ~ 800ml/24hrs. Remains on room air. Good urine output. - Hold on diuresis for now but aim for negative FB - Encourage incentive spirometry - Out of bed, physical therapy - Maintain pleural chest tubes to -20 suction Assessment & Plan (08/30/2019 2:24 PM SKIN DRIER): CXR with small L effusion but on room air. 2+ BLE edema noted. FB (-) 228ml with Lasix 40 yesterday. - Encourage use of acapella - Out of bed, physical therapy - Consider diuretics if FB + or new O2 requirement - DC mediastinal chest tubes today per CTS, keep pleural tubes Assessment & Plan (08/29/2019 1:19 PM SKIN DRIER): Patient uses 2L NC occasionally but mainly on room air. CXR w/ trace LLL effusion vs atelectasis. FB (-) 160 with Lasix 20 x 1 and then 40 x 1. - Encourage use of acapella - Out of bed, physical therapy - Wean O2 for oxygen saturations > 92% - FBG (=) d/t JAMES Assessment & Plan (08/28/2019 11:15 AM SKIN DRIER): Patient uses 2L NC occasionally but mainly on room air. CXR w/ bibasilar atelectasis. - Encourage use of acapella - Out of bed, physical therapy - Wean O2 for oxygen saturations > 92% - 20 Lasix x1 Assessment & Plan (08/27/2019 1:44 PM SKIN DRIER): Extubated 0100. On 4-6L NC. CXR w/ atelectasis. - Encourage incentive spirometry - Out of bed, physical therapy - Wean O2 for oxygen saturations > 92% - 40 Lasix x1 Acute blood loss anemia 08/26/2019 Overview (08/29/2019): Pre-op H/H 14.7/42.7. Has received 2U PRBCs intra-op. Assessment & Plan (09/09/2019 11:19 AM SKIN DRIER): Expected, related to post op ABLA Stable, daily CBC No indication for transfusion today Assessment & Plan (09/05/2019 9:51 AM SKIN DRIER): Stable, daily CBC No indication for transfusion today Assessment & Plan (08/31/2019 7:24 AM SKIN DRIER): Expected anemia d/t surgical blood loss. H&H stable 05/21/28. High pleural chest tube output but serosanguinous. - No indication for transfusion - Daily CBC unless clinically indicated sooner Assessment & Plan (08/29/2019 1:33 PM SKIN DRIER): Expected anemia d/t surgical blood loss. H/H stable at 9.4/28.6 (9.7/28.8). Moderate bleeding from CTs at 920ml over last 24hrs but mostly serosanguinous. No requirement of vasopressor support. - No clinical indication for transfusion at this time - Repeat CBC at 1200 to determine trend 1130: H/H 9.7/29.7. Will repeat CBC in am. Assessment & Plan (08/28/2019 11:15 AM SKIN DRIER): Expected anemia following surgery. H&H stable 9.7/28.8 (10.4/31.0) - No indication for transfusion - Daily CBC Assessment & Plan (08/27/2019 1:45 PM SKIN DRIER): Expected anemia following surgery. H&H stable. - No indication for transfusion - Daily CBC Assessment & Plan (08/27/2019 2:30 AM SKIN DRIER): Expected following cardiac surgery. Moderate chest tube output. Post-op H/H 11.1/33. No pressors. - No acute indication for transfusion - Monitor CT output and notify CT surgery if > 150 for 2 consecutive hours - f/u am cbc Assessment & Plan (08/26/2019 8:02 PM SKIN DRIER): Expected following cardiac surgery. H&H stable. Arrives to CTICU hemodynamically supported on Epi 0.06 mcg/kg/min. - No indication for transfusion, consider if patient becomes hemodynamically unstable with increased pressor requirements or hgb < 8 and symptomatic - CBC daily ETOH abuse 08/17/2019 Assessment & Plan (09/11/2019 10:34 AM SKIN DRIER): Continue thiamine 100 mg po daily Continue folic acid 1mg po daily Assessment & Plan (09/02/2019 11:38 AM SKIN DRIER): Continue thiamine 100 mg po daily Continue folic acid 1mg po daily Assessment & Plan (08/31/2019 7:20 AM SKIN DRIER): Pt reports drinking 10 beers per day but quit about 10 days before surgery. Calm without tremor or delirium. - Thiamine, folate supplements - CIWA scale (has not required benzos) - Monitor for DTs Assessment & Plan (08/30/2019 2:21 PM SKIN DRIER): Pt reports drinking 10 beers per day but quit about 10 days before surgery. Currently calm without tremor or delirium. - Thiamine, folate supplements - CIWA scale (has not required benzos) - Monitor for DTs Assessment & Plan (08/29/2019 1:20 PM SKIN DRIER): Pt reports drinking 10 beers per day w/ associated very mild transaminitis. Currently calm without tremor or delirium. - Thiamine, folate supplements - [facility] protocol - Monitor for DTs Assessment & Plan (08/28/2019 11:15 AM SKIN DRIER): Pt reports drinking 10 beers per day. Currently calm with mild tremor noted. - Thiamine, folate supplements - [facility] protocol - Monitor for DTs Assessment & Plan (08/27/2019 1:34 PM SKIN DRIER): Pt reports drinking 10 beers per day. Currently calm with mild tremor noted. - Thiamine, folate - [facility] protocol - Monitor for DTs Assessment & Plan (08/27/2019 5:15 AM SKIN DRIER): Reportedly 3-5 beers per day. -monitor for signs of DT's Assessment & Plan (08/18/2019 11:12 AM SKIN DRIER): H/o heavy beer consumption > 12 beers/day [...] mcg/kg/min. Assessment & Plan (09/11/2019 10:20 AM SKIN DRIER): S/p bio MV replacement (31 mm MAGNA) [...] note. Assessment & Plan (09/07/2019 10:36 AM SKIN DRIER): S/p 08/26 aborted MV repair, bio MVR (31 mm MAGNA), and CABG x 1 (LION-LAD) No tubes, wires or lines Continue ASA, beta alina QTc 480 on daily amiod 400mg Assessment & Plan (09/01/2019 2:55 PM SKIN DRIER): ICU Standards of Care: - ASA for [...] Albert Assessment & Plan (08/31/2019 7:25 AM SKIN DRIER): ICU Standards of Care: - ASA for [...] surgery Assessment & Plan (08/30/2019 2:25 PM SKIN DRIER): ICU Standards of Care: - ASA for [...] surgery Assessment & Plan (08/29/2019 1:16 PM SKIN DRIER): ICU Standards of Care: - Cont ASA [...] 160 Assessment & Plan (08/28/2019 11:04 PM SKIN DRIER): s/p MVR and CABG x 1. He [...] mobility Assessment & Plan (08/28/2019 11:16 AM SKIN DRIER): s/p MVR and CABG x 1. He [...] mobility Assessment & Plan (08/28/2019 3:47 AM SKIN DRIER): s/p MVR. He remains hemodynamically supported on Epi at 0.05 mcg/kg/min with an ScVO2 74.6%. - ASA Daily - Maintain a goal SBP < 140 - Eventually BB initiation once off inotropic support Assessment & Plan (08/26/2019 7:36 PM SKIN DRIER): s/p MVR. Intra-op ECHO revealed evidence of normally functioning bio MV with MG=4 and no paravalvular leak on EPI .1 mcg/kg/min. He arrives hemodynamically supported on Epi at 0.04 mcg/kg/min. - ASA 300 mg WY now - ASA Daily - Maintain a goal SBP < 140 - Eventually BB initiation once off inotropic support Assessment & Plan (08/19/2019 12:32 PM SKIN DRIER): 06/23 TTE shows preserved biventricular function and severe mitral regurgitation due to P2 prolapse -Plan for MV repair/ replacement -NPO at midnight -PFTs and carotids complete -Baseline labs, EKG, CXR obtained - consents signed Resolved Problems Problem Noted Date Diagnosed Date Resolved Date Thrombocytopenia 08/29/2019 08/30/2019 Assessment & Plan (08/29/2019 1:35 PM SKIN DRIER): Pre-op Plt 112. Has received 3U Plts [...] 09/02/2019 Assessment & Plan (08/31/2019 7:23 AM SKIN DRIER): Gacria cultures sent 08/29 in setting of worsening leukocytosis. Started on ceftriaxone for UA with WBC, leuk esterase, and bacteria. Urine culture finalized negative. Ceftriaxone DC'd last night. WBC continues to trend down. - f/u blood cultures Assessment & Plan (08/31/2019 3:36 AM SKIN DRIER): Blood cultures and UA sent yesterday in setting of worsening leukocytosis. UA with WBC, leuk esterase, and bacteria. Started on empiric ceftriaxone. WBC continues to trend down, now 12.6. Remains afebrile. Urine culture now final negative - d/c ceftriaxone - f/u blood cultures Assessment & Plan (08/30/2019 2:30 PM SKIN DRIER): Blood cultures and UA sent yesterday in setting of worsening leukocytosis. UA with WBC, leuk esterase, and bacteria. Started on empiric ceftriaxone. WBC down to 18.5 (22.4) today, afebrile. - f/u urine culture and blood culture results - Ceftriaxone for 5 day course unless urine culture results negative Assessment & Plan (08/30/2019 5:12 AM SKIN DRIER): WBC peaked at 22 today. Afebrile. UA [...] ceftriaxone Assessment & Plan (08/29/2019 6:24 PM SKIN DRIER): WBC up trending at 19.9 (17.8). Tm [...] 08/28/2019 Assessment & Plan (08/27/2019 1:45 PM SKIN DRIER): Resolving. Lactate down to 5 from 11. - No need to trend lactate - Noon BMP Assessment & Plan (08/27/2019 2:09 AM SKIN DRIER): Likely related to elevated lactate at 11, [...] 08/27/2019 Assessment & Plan (08/27/2019 2:32 AM SKIN DRIER): Initial phos 2.8. Repeat down to 0.7. Labs resent and result unchanged at 0.7. -30 mMol KPhos Hypokalemia 08/27/2019 08/27/2019 Assessment & Plan (08/27/2019 2:44 AM SKIN DRIER): Post-op WBK 5.1. Underlying rhythm NSR 70's with frequent PAC's. Pt receiving 60 mEq IV KCl. -f/u WBK after repletion Hyperglycemia 08/27/2019 08/31/2019 Assessment & Plan (08/30/2019 2:27 PM SKIN DRIER): No prior history of DM. Likely exacerbated by Epi and inflammatory response following surgery. BG 100-130s last 24 hours. - Cont SSI QID Assessment & Plan (08/29/2019 1:30 PM SKIN DRIER): No prior history of DM. Hyperglycemia in the post-operative period likely inflammatory response s/p invasive surgery w/ pressor support. - Cont SSI - Restart Insulin gtt for BS > [address] ICU protocol Assessment & Plan (08/28/2019 11:47 PM SKIN DRIER): No history of DM. Likely related to stress response. Currently, BG overnight 129-150. - HD SSI to high dose to maintain BS < 180 - Accuchecks Q 4 Assessment & Plan (08/28/2019 11:16 AM SKIN DRIER): No history of DM. Likely related to stress response. BG overnight 150-190. - Increase SSI to high dose to maintain BS < 180 -Accuchecks Q 4 Assessment & Plan (08/28/2019 3:49 AM SKIN DRIER): No history of DM. Likely related to stress response. BG overnight > 180. - Continue glycemic control with SSI per CTICU protocol to maintain BG <180 Assessment & Plan (08/27/2019 2:53 AM SKIN DRIER): Arrived to ICU on insulin gtt. No history of DM. Likely related to stress response. -continue insulin gtt per ICU protocol. Acute post-operative pain 08/26/2019 Assessment & Plan (09/02/2019 11:38 AM SKIN DRIER): Continue prn pain medication Assessment & Plan (08/31/2019 7:20 AM SKIN DRIER): Pain well controlled on current regimen. - Scheduled APAP x 5 days - PRN Oxycodone - Lidocaine patches to chest wall Assessment & Plan (08/30/2019 2:22 PM SKIN DRIER): Pain well controlled on current regimen. - Scheduled APAP x 5 days - PRN Oxycodone - Lidocaine patches to chest wall Assessment & Plan (08/29/2019 1:04 PM SKIN DRIER): Expected post-operative pain S/P sternotomy for CT Sx. Pain well controlled on current regimen. - Cont scheduled APAP - Cont prn Oxy - Cont Lidocaine patches Assessment & Plan (08/28/2019 11:15 AM SKIN DRIER): Expected postop pain. Had increased incisional pain overnight requiring one dose of Dilaudid, otherwise pain well controlled. - Scheduled Tylenol and lidocaine patches - PRN oxycodone for breakthrough Assessment & Plan (08/27/2019 1:45 PM SKIN DRIER): Expected postop pain. Well controlled. - Scheduled Tylenol and lidocaine patches - PRN oxycodone with dilaudid for breakthrough Assessment & Plan (08/27/2019 2:25 AM SKIN DRIER): Sedated with propofol - changed propofol to precedex in anticipation of extubation - prn fentanyl - Once extubated, change fentanyl to dilaudid - add scheduled tylenol and prn oxycodone when able to safely swallow Assessment & Plan (08/26/2019 7:38 PM SKIN DRIER): He arrives intubated and sedated on Dex gtt. Resting with eyes closed on exam. Appears to be comfortable on exam. - Discontinue Dex gtt - Initiate prop gtt for sedation until acidosis improves - Once extubated will change pain medication regimen to the following: - PRN oxycodone - Dilaudid PRN for breakthrough Acute respiratory failure 08/26/2019 Assessment & Plan (08/27/2019 2:19 AM SKIN DRIER): Post-procedural short-term ventilator support with anticipated extubation. [...] incident Assessment & Plan (08/26/2019 8:23 PM SKIN DRIER): Post-procedural short-term ventilator support with anticipated extubation. [...] ABG - Per Dr. Albert, strip CT [id number] 1720: POC revealed pH 7.28/ [id number]/HCO3 20/ paO2 100--> 2 amps bicarb and [...] mcg/kg/min. Assessment & Plan (09/01/2019 2:49 PM SKIN DRIER): TTE 08/29 with LVEF 54%, normal RV [...] diuresis Assessment & Plan (09/01/2019 2:43 AM SKIN DRIER): TTE 08/29 with LVEF 54%, normal RV function, mild AR, mild TR; paradoxical septal motion noted. Epi decreased to 0.04 today in light of ongoing hypertension. - Keep Epi at 0.04 mcg/kg/min per Dr. Patino in the setting of JAMES - Amio 400 TID for afib prophylaxis - Hold on diuresis with good auto diuresis Assessment & Plan (08/31/2019 7:19 AM SKIN DRIER): Remains on epi 0.05 mcg/kg/min. TTE 08/29 [...] diuresis Assessment & Plan (08/31/2019 2:25 AM SKIN DRIER): Remains on epi 0.05 mcg/kg/min. TTE 08/29 [...] diuresis Assessment & Plan (08/30/2019 2:19 PM SKIN DRIER): Remains on ep 0.05 mcg/kg/min. TTE 08/29 [...] 100ml/hr Assessment & Plan (08/30/2019 5:06 AM SKIN DRIER): Remains on ep 0.05 mcg/kg/min. TTE today with LVEF 54%, normal RV function, mild AR, mild TR; paradoxical septal motion noted. - Keep Epi at 0.05 mcg/kg/min per Dr. Patino in the setting of worsening JAMES - Amio 400 TID for afib prophylaxis - Maintain negative fluid balance Assessment & Plan (08/29/2019 1:13 PM SKIN DRIER): Overall improving, currently on Epi 0.05. ScVO2 [...] Repeat ScVO2 and BMP at 1200 1130: Holter Technician improved to 4.87 (4.92) but ScVO2 59.3. No increased oxygenation needed. TTE still pending. Assessment & Plan (08/28/2019 11:42 PM SKIN DRIER): Improving. Postop echo w/ normal biventricular function [...] 0300. Assessment & Plan (08/28/2019 11:15 AM SKIN DRIER): Resolving. Postop echo w/ normal biventricular function [...] 1200 Assessment & Plan (08/28/2019 3:51 AM SKIN DRIER): Improving. Postop echo w/ normal biventricular function [...] mcg/kg/min. Assessment & Plan (08/27/2019 1:44 PM SKIN DRIER): Resolving. Postop echo w/ normal biventricular function on Epi at 0.06. CI > 3. Significant lactic acidosis postop now improving. - DC swan/cordis - Keep Epi 0.06 today per Maniar - AAI @ 90 - Amio 400 TID for afib prophylaxis per Maniar - 40 Lasix x1 Assessment & Plan (08/27/2019 1:54 AM SKIN DRIER): Post-op echo with normal biventricular function and [...] 70's) Assessment & Plan (08/26/2019 8:17 PM SKIN DRIER): S/p CABG x1 and MVR.He received a [...] 09/09/2019 Assessment & Plan (09/06/2019 11:46 AM SKIN DRIER): S/p CABG x1 on 08/26 On asa, statin, BB Wires out, TTE done Assessment & Plan (08/28/2019 11:16 AM SKIN DRIER): S/p coronary bypass grafting x1 (LION to [...] surgery Assessment & Plan (08/28/2019 3:45 AM SKIN DRIER): S/p coronary bypass grafting x1 (LION to [...] surgery Assessment & Plan (08/27/2019 1:35 PM SKIN DRIER): S/p coronary bypass grafting x1 (LION to [...] surgery Assessment & Plan (08/26/2019 7:36 PM SKIN DRIER): S/p coronary bypass grafting x1 (LION to the LAD). Post-op care to include: - ASA 300 mg WY x1 - ASA 81 mg PO Daily [...] surgery Assessment & Plan (08/18/2019 11:10 AM SKIN DRIER): 06/02 left heart catheterization showed a proximal LAD lesion with a right dominant system -plan for 08/19 CABGx1 LION to the LAD anastomosis -continue asprin Hypertension 08/17/2019 09/09/2019 Assessment & Plan (08/18/2019 11:11 AM SKIN DRIER): Systolic BP 101-146 this admission -Continue Toprol 12.5 BID -Hold DESTINI-I in the pre op setting Non-rheumatic mitral regurgitation 05/01/2019 09/09/2019 Preop cardiovascular exam Immunizations Name Administration Dates Next Due Influenza, Unspecified 06/17/2019 Social History Tobacco Use Types Packs/Day Years [...] on file Legal Sex Male 2:58 AM SKIN DRIER Gender Identity Not on file Sexual Orientation Not on file Last Filed Vital Signs Vital Sign Reading [...] 07/09/2024 7:40 AM CDT Plan of Treatment Not on file Medical Devices Implanted Type Area Service Director Device Identifier Shelf Expiration Date Model / Serial / Lot [employer] [id number] Roseanne-Edward s Perimount Magna 31mm Bioprosthesis Ease Heart - [id number] - [id number] Implanted:Qty: 1 on 08/26/2019 by Felton Ablert MD at [facility] N/A: Heart [employer] 01/01/2022 [id number] / [id number] / [place] [address] [place] [address] JIANG [address] [facility] Advance Directives For more information, please contact: [phone] * Full Code (Latest Code Status on File) Date Activated Date Inactivated Comments 09/12/2019 7:41 PM * Full Code Date Activated Date Inactivated Comments 08/26/2019 5:35 PM 09/11/2019 7:26 PM * Full Code Date Activated Date Inactivated Comments 08/17/2019 11:35 AM 08/20/2019 3:26 PM Care Teams Taxation Economist Relationship Specialty Start Date End Date Abelino Hudson MD [address] [place] [address] PCP - General Internal Medicine 03/03/19 Cesar Andres MD [address] [address] Consulting Physician Cardiology 08/07/19
[2024-10-29 12:45] VITALS: BP 109/54; PULSE 102; RESP 16; TEMP 36.3; O2SAT 100
--- OUTSIDE RECORDS SUMMARY | 2024-10-29 13:09 | XMS_ITS | Clinical Summary ---
Author Organization [facility] Address [address] [place] [address] Care Team Providers Care Cold Mill Supervisor Name Role Phone Abelino Hudson MD Primary Care Provider [phone] Brody Chawla MD Unavailable Allergies No known active allergies Medications Acetaminophen 500 MG Cap Take 1,000 mg by mouth every 6 (six) hours as needed for Pain. 09/11/20 19 Active polyethylene glycol (GLYCOLAX) 17 GM/SCOOP powder Take 17 g by mouth daily. Dissolve powder in 240 mL water Active apixaban (ELIQUIS) 5 MG tabletIndication s:Acute deep vein thrombosis (DVT) of femoral vein of right lower extremity ([facility]/HCC HHS/HCC) TAKE 1 TABLET BY MOUTH TWICE [...] 40 MG tabletIndication s:Coronary artery disease involving nikolski coronary artery of nikolski heart without angina pectoris Take 1 tablet [...] 10/24/2023 Assessment & Plan (10/24/2023 1:30 PM BRIQUETTE MOLDER): He was noted to be tachycardic on exam. EKG in office shows normal sinus rhythm with PACs. Nonrheumatic mitral valve stenosis 02/16/2023 Status post transcatheter ao rtic valve replacement (TAVR) using bioprosthesis 10/23/2022 Assessment & Plan (10/24/2023 1:31 PM BRIQUETTE MOLDER): He is status post TAVR and he will get his 1 yr echo in December. Continue antibiotic prophylaxis prior to dental procedures. Continue yearly echoes per primary outsole scheduler. Superior mesenteric artery stenosis ([facility]/HCC [facility]) 10/23/2022 Overview (10/23/2022): CT Severe aortic valve stenosis 10/11/2022 Nonrheumatic aortic valve stenosis 04/19/2022 Assessment & Plan (01/13/2023 2:31 PM CDT): Status post transfemoral TAVR. 1-month echo shows well functioning bioprosthetic aortic valve. Repeat echo in one year. Continue antibiotic prophylaxis prior to dental procedures. Assessment & Plan (10/19/2022 11:21 AM BRIQUETTE MOLDER): S/p TAVR on 10/11/22 Post op echo - Revealed a mean gradient of 13 mm per mercury EKG today revealed sinus rhythm christianne alone continued Dental prophylaxis prior to any dental procedure cleaning Repeat echo in 1 month prior to follow-up with Dr. Day Assessment & Plan (08/15/2022 8:52 AM BRIQUETTE MOLDER): Given his history of prior open heart [...] surgical evaluation. Chronic systolic congestive heart failure ([facility]) 05/02/2021 Aortic atherosclerosis 05/02/2021 S/P CABG (coronary artery bypass graft) 09/09/20 Overview (09/25/2019): Last Assessment & Plan: S/p bio MV replacement (31 mm MAGNA) [repair was aborted) and CABG x 1 (LION- LAD) on 08/26 See mitral valve replacement problem (above) Paroxysmal atrial fibrillation ([facility]) 09/04/2019 Overview (09/25/2019): Last Assessment & Plan: Ongoing ATC telemetry--NSR at present Amiodarone 400 mg daily continues--Daily EKG checks for QTc TTE: EF 71%, no effusion, mod RV reduction Metoprolol 12.5 BID Assessment & Plan (10/24/2023 1:23 PM BRIQUETTE MOLDER): He is in normal sinus rhythm. Continue metoprolol and apixaban. Assessment & Plan (08/15/2022 8:54 AM BRIQUETTE MOLDER): He is in normal sinus rhythm. Continue metoprolol and apixaban. 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 Continue medical management of coronary artery disease. 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 Continue established treatment [...] 01/28/2013 Assessment & Plan (10/24/2023 1:26 PM BRIQUETTE MOLDER): Blood pressure in the office is elevated. Encouraged home blood pressure monitoring. Continue antihypertensive therapy. Resolved Problems Problem Noted Date Diagnosed Date Resolved Date Localized swelling of right lower leg 03/10/2022 10/23/2023 Bronchitis 05/24/2021 11/07/2021 Stage 2 chronic kidney disease 05/02/2021 10/23/2022 Acute renal failure with acu te tubular necrosis superimposed on stage 2 chronic kidney disease 08/27/2019 05/02/2021 Overview (09/25/2019): Overview: Pre-op Product Development Ecologist 0.89 w/ estimated GFR 89.9 (CKD II). [...] Type Department Care Team Description 10/29/2024 Telephone [facility] Family & Internal Medicine [address] [address] Abelino Hudson MD Referral 10/28/2024 8:06 AM [facility] Hospital Encounter [facility] [place] [address] Rashmi Yo APNP Arrived 10/28/2024 Orders Only [facility] [place] [address] Rashmi Yo APNP 10/28/2024 Travel 10/21/2024 9:34 AM BRIQUETTE MOLDER - 10/21/2024 11:59 PM BRIQUETTE MOLDER Hospital Encounter [facility] [place] [address] Rashmi Yo APNP Discharge Disposition: Home or Self Care (Routine Discharge) 10/21/2024 8:11 AM BRIQUETTE MOLDER - 10/21/2024 9:33 AM BRIQUETTE MOLDER Hospital Encounter [facility] [address] Rashmi Yo, VERONA Discharge Disposition: Home or Self Care (Routine Discharge) 10/21/2024 Travel 10/15/2024 8:26 AM BRIQUETTE MOLDER - 10/15/2024 11:59 PM BRIQUETTE MOLDER Hospital Encounter [facility] [address] Rashmi Yo, VERONA Discharge Disposition: Home or Self Care (Routine Discharge) 10/15/2024 Orders Only [facility] [place] [address] Rashmi Yo APNP 10/15/2024 Travel 10/07/2024 8:55 AM BRIQUETTE MOLDER - 10/07/2024 11:59 PM BRIQUETTE MOLDER Hospital Encounter [facility] [address] Rashmi Yo APNP Discharge Disposition: Home or Self Care (Routine Discharge) 10/07/2024 Telephone [facility] Family & Internal Medicine [address] [address] Abelino Hudson MD Referral 10/07/2024 Orders Only [facility] [address] Rashmi Yo APNP 10/07/2024 Travel 09/30/2024 7:54 AM BRIQUETTE MOLDER - 09/30/2024 11:59 PM BRIQUETTE MOLDER Hospital Encounter [facility] [place] [address] Rashmi Yo APNP Discharge Disposition: Home or Self Care (Routine Discharge) 09/30/2024 Orders Only [facility] [address] Rashmi Yo APNP 09/30/2024 Travel 09/25/2024 10:40 AM BRIQUETTE MOLDER Office Visit [address] [address] Abelino Hudson MD Wound (F/u wound on LT ferraro) 09/25/2024 Travel 09/15/2024 11:20 AM BRIQUETTE MOLDER Office Visit [address] [address] Abelino Hudson MD Wound (Wound on LLE) 09/15/2024 Travel 09/11/2024 9:20 AM BRIQUETTE MOLDER Office Visit [address] [address] Abelino Hudson MD Follow Up; Pneumonia; Wound (F/U LLE wound) 09/11/2024 Travel 09/04/2024 9:00 AM BRIQUETTE MOLDER Allied Health/Nurse Visit [address] [address] Abelino Hudson MD Allied Health Visit (wound) 09/04/2024 Travel 08/28/2024 10:40 AM BRIQUETTE MOLDER Office Visit [address] [address] Abelino Hudson MD ER F/U ([place] ER f/u 08/23/24 for fall); Rib Pain (Patient c/o rib pain when coughing starting since fall) 08/28/2024 Travel 08/25/2024 Patient Outreach [address] [address] Pari Crowell RN ER F/U ([facility] ER 08/23/2024) 08/25/[address] [address] Abelino Hudson MD ER F/U (fall) 08/23/2024 Scan [facility] HEALTH INFO SRVCS Scanned, Doc Med [facility] Image (SCAN) 08/12/[address] [address] Abelino Hudson MD Lab Results 08/08/2024 Scan [facility] [address] [address] Scanned, Doc Pccl 08/06/2024 9:00 AM BRIQUETTE MOLDER Office Visit [address] [address] Abelino Hudson MD Follow Up; CHF; Pneumonia (Pt states still coughing up brown sputum, having increased sob with ambulation/) 08/06/2024 Travel 08/04/2024 Telephone [facility] Internal [address] [address] Abelino Hudson MD Referral 07/30/2024 7:20 AM BRIQUETTE MOLDER Office Visit [address] [address] Abelino Hudson MD Follow Up; Hypertension; Coronary [...] 4,06/17/2013,2012 Influenza Adult (Generic) 05/15/2023,10/2018,07/03/2018,2016,07/06/2016 MODERNA COVID-19 (HEAD UP OPERATOR HELPER MEAGAN KEENAN), MRNA, LNP-S, PF, 50 MCG/ [...] place to sleep or slept in a penitentiary (including now)? No 10/11/2022 Sex and Gender Information Value Date Recorded Sex Assigned at Male 02/06/2019 8:24 AM CDT Legal Sex Male 5:37 PM CDT Gender Identity Male 02/06/2019 8:24 AM CDT Sexual Orientation Straight 02/06/2019 8: 24 AM CDT Last Filed Vital Signs Vital Sign Reading Time Taken Comments Blood Pressure 110/54 09/25/2024 11:07 AM BRIQUETTE MOLDER Pulse 76 09/25/2024 11:07 AM BRIQUETTE MOLDER Temperature 36.4 C (97.5 F) 09/25/2024 11:07 AM BRIQUETTE MOLDER Respiratory Rate 18 09/25/2024 11:0 7 AM BRIQUETTE MOLDER Oxygen Saturation 97% 09/25/2024 11: 07 AM BRIQUETTE MOLDER Inhaled Oxygen Concentration - - Weight 111.8 kg (246 lb 6.4 oz) 025 11:07 AM BRIQUETTE MOLDER Height 188 cm (6' 2 ) 09/25/2024 11:07 AM BRIQUETTE MOLDER Body Mass Index 31.64 09/25/2024 11:07 AM BRIQUETTE MOLDER Plan of Treatment Upcoming Encounters Date Type Department Care Team (Late st Contact Info) Description 11/03/2024 10:30 AM BRIQUETTE MOLDER Appointment [facility] [place] [address] Deja Orellana MD [address] [place] [address] 11/05/2024 1:15 PM BRIQUETTE MOLDER Office Visit [facility], [address] [address] Deja Orellana MD [address] [place] [address] 11/28/2024 11:15 AM CDT Office Visit [facility] [phone] Kerri Tinoco MD [facility] [address] [place] [address] 12/30/2024 8:00 AM CDT Appointment [facility] [place] [address] Kerri Tinoco MD [facility] [address] [place] [address] Health Maintenance Due Date Last Done Comments [...] or 60+ Years Completed 07/19/2024 PHQ-2 (Physician [place]) Completed 09/25/2024 Meningococcal B Vaccine Aged Out [...] from hospital Lifestyle On track(2022 12:01 PM BRIQUETTE MOLDER) Stephanie Anne RN Establish Plan for Symptom Monitoring Lifestyle On track(2022 1:23 PM BRIQUETTE MOLDER) Penny Babin RN Note: HTN: Patient to monitor blood pressure daily and record readings and call provider with consistent readings >140/90. Patient will maintain a low sodium diet . Patient will call provider with any visual disturbances, headaches or dizziness. Patient to take all medications as prescribed. Monitor - verbalizes recognition of s/s wound infections Lifestyle On track(2022 1:24 PM BRIQUETTE MOLDER) Penny Babin RN Consistently take medications as Prescribed Lifestyle On track(2022 1:23 PM BRIQUETTE MOLDER) Penny Babin RN Medications - demonstrates understanding of how and when to take anticoagulants, dietary restrictions, and signs and symptoms to report to PCP Lifestyle On track(2022 1:24 PM BRIQUETTE MOLDER) Penny Babin RN Medical Devices Implanted Type Area Sheet Ironworker Device Identifier Shelf Expiration Date Model / Serial / Lot Aortic 34mm (Tavr) Valve Implant- [id number] Implanted:Qty: 1 on 10/11/2022 by Basil Day MD Valve Implant Aorta [employer] 07/12/2024 [id number] / [id number] / Procedures Procedure Name Priority Date/Time Associated Diagnosis Comments USV VENOUS REFLUX LOW LT Routine 10/21/2024 11:09 AM BRIQUETTE MOLDER Peripheral vascular disease of lower extremity with ulceration (CMS/HCC HHS/HCC) Localized swelling, mass and lump, left lower limb USV ART REST W CHARLEY LOW EXT Routine 10/21/2024 11:06 AM BRIQUETTE MOLDER Peripheral vascular disease of lower extremity with ulceration (CMS/HCC HHS/HCC) CULTURE, TISSUE W/GRAM STAIN Routine 09/30/2024 10:02 AM BRIQUETTE MOLDER Peripheral vascular disease of lower extremity with ulceration (CMS/HCC HHS/HCC) IMAGE GENERIC 08/23/2024 COLLECTION VENOUS BLOOD VENIPUNCTURE Routine 07/30/2024 12:54 PM BRIQUETTE MOLDER Shortness of breath CBC W/DIFF AUTOMATED Routine 07/30/2024 12:53 PM BRIQUETTE MOLDER Shortness of breath COMPREHENSIVE METABOLIC PANEL Routine 07/30/2024 12:53 PM BRIQUETTE MOLDER Shortness of breath XR CHEST PA+LAT Routine 07/30/2024 8:09 AM BRIQUETTE MOLDER Shortness of breath COLONOSCOPY GENERIC (SCAN ORDER) Routine 08/06/2019 4:42 PM BRIQUETTE MOLDER from Last 3 Months or Most Recently Relevant to Health Maintenance Results * USV VENOUS REFLUX LOW LT (10/21/2024 11:09 AM BRIQUETTE MOLDER) Anatomical Region Laterality Modality Extremity Vascular Ultraso und 10/21/2024 10:0 1 AM BRIQUETTE MOLDER Narrative 10/22/2024 9:55 PM BRIQUETTE MOLDER VENOUS DUPLEX IMAGING LEFT LOWER EXTREMITY VASCULAR LAB Pat.Name: FAVIO TRAN.ID: [id number] .Date: 10/21/2024 : [id number], Keira gutierrez Exam Time: 10:01:00 AM Study [...] LOWER EXTREMITY VASCULAR LAB Pat.Name: FAVIO TRAN.ID: [id number] .Date: 10/21/2024 Refer.: [id number], Keira gutierrez Exam Time: 10:01:00 AM Study [...] W CHARLEY LOW EXT (10/21/2024 11:06 AM BRIQUETTE MOLDER) Anatomical Region Laterality Modality Extremity Vascular Ultraso und 10/21/2024 10:0 4 AM BRIQUETTE MOLDER Narrative 10/21/2024 9:42 PM BRIQUETTE MOLDER ARTERIAL DOPPLER - CHARLEY BILATERAL LOWER EXTREMITY VASCULAR LAB Pat.Name: FAVIO TRAN.ID: [id number] .Date: 10/21/2024 Refer.MD: rashmi Yo Exam Time: [...] 09:42 PM Wolf Crockett M.D. Procedure Note Wlof Crockett MD - 10/21/2024 ARTERIAL DOPPLER - CHARLEY BILATERAL LOWER EXTREMITY VASCULAR LAB Pat.Name: FAVIO TRAN.ID: [id number] .Date: 10/21/2024 Refer.MD: rashmi Yo Exam Time: [...] CULTURE, TISSUE W/GRAM STAIN (09/30/2024 10:02 AM BRIQUETTE MOLDER) SPEC DESCRIPTION LEG,LEFT 09/30/2024 2:11 PM BRIQUETTE MOLDER [facility] SPECIAL REQUESTS NO SPECIAL REQUEST 09/30/2024 2:11 PM BRIQUETTE MOLDER [facility] GRAM STAIN RESULT NO WHITE BLOOD CELLS SEEN 09/30/2024 10:04 PM [facility] GRAM STAIN RESULT NO ORGANISMS SEEN 09/30/2024 10:04 PM [facility] CULTURE RESULT SPARSE GROWTH OF METHICILLIN RESISTANT STAPHYLOCOCCUS AUREUS FOLLOW ISOLATION PROTOCOL. (A) 10/03/2024 8:19 AM [facility] CULTURE RESULT SPARSE GROWTH OF STREPTOCOCCUS VIRIDANS SPECIES ORGANISM IS CONSISTENT WITH NORMAL SKIN SISI. SUSCEPTIBILITIES NOT ROUTINELY PERFORMED. (A) 10/03/2024 8:19 AM [facility] CULTURE RESULT SPARSE GROWTH OF ENTEROCOCCUS SPECIES IF PATIENT IS PENICILLIN ALLERGIC, CONTACT THE MICROBIOLOGY DEPARTMENT FOR READILY AVAILABLE VANCOMYCIN SUSCEPTIBILITY. (A) 10/03/2024 8:19 AM [facility] STRUCTURE OF LEFT LOWER LIMB / Unknown 09/30/2024 10:02 AM BRIQUETTE MOLDER 09/30/2024 2:12 PM BRIQUETTE MOLDER Narrative Organism Antibiotic Method Susceptibility Methicillin resistant staphylococcus aureus CLINDAMYCIN ZADIA (VITEK) >=8: Resistant Methicillin resistant staphylococcus aureus [...] - GENERAL ORDE JORGE L Final Result [facility] [address] [place] [address], [place] [phone] * IMAGE GENERIC (08/23/2024) Anatomical Region Laterality Modality Other 08/23/2024 us Doc Med Group Scanned SCANNING Final Resu lt * (ABNORMAL) COMPREHENSIVE METABOLIC PANEL (07/30/2024 12:53 PM BRIQUETTE MOLDER) SODIUM S/P/B 134(L) 136 - 145 MMOL/L 07/30/2024 3:24 PM BRIQUETTE MOLDER -[facility] POTASSIUM S/P/B 5.0 3.5 - 5.1 MMOL/L 07/30/2024 3:24 PM BRIQUETTE MOLDER -[facility] CHLORIDE S/P/B 99 98 - 107 MMOL/L 07/30/2024 3:24 PM BRIQUETTE MOLDER -[facility] [place] CO2 29.3 21 - 32 MMOL/L 07/30/2024 3:24 PM BRIQUETTE MOLDER -[facility] GLUCOSE 103(H) 70 - 99 MG/DL 07/30/2024 3:24 PM BRIQUETTE MOLDER [facility] BUN 10 7 - 18 MG/DL 07/30/2024 3:24 PM BRIQUETTE MOLDER [facility] [place] CREATININE S/P/B 1.00 0.70 - 1.30 MG/DL 07/30/2024 3:24 PM BRIQUETTE MOLDER -[facility] [place] CALCIUM S/P/B 9.3 8.4 - 10.5 MG/DL 07/30/2024 3:24 PM BRIQUETTE MOLDER -[facility] [place] BILIRUBIN TOTAL S/P/B 0.8 0.2 - 1.0 MG/DL 07/30/2024 3:24 PM BRIQUETTE MOLDER -[facility] [place] ALKALINE PHOSPHATASE S/P/B 133(H) 45 - 115 U/L 07/30/2024 3:24 PM BRIQUETTE MOLDER [facility] AST 16 15 - 37 U/L 07/30/2024 3:24 PM BRIQUETTE MOLDER [facility] ALT 19 16 - 63 U/L 07/30/2024 3:24 PM BRIQUETTE MOLDER [facility] TOTAL PROTEIN S/P/B 6.7 6.4 - 8.2 G/DL 07/30/2024 3:24 PM BRIQUETTE MOLDER [facility] ALBUMIN S/P/B 3.3(L) 3.4 - 5.0 G/DL 07/30/2024 3:24 PM BRIQUETTE MOLDER [facility] ANION GAP 5.7 5 - 15 MMOL/L 07/30/2024 3:24 PM BRIQUETTE MOLDER [facility] Comment:REFERENCE RANGE NOT ESTABLISHED OSMOLALITY (CALC) 277 MOSM/KG 024 3:24 PM BRIQUETTE MOLDER [facility] Comment:REFERENCE RANGE NOT ESTABLISHED GFR ESTIMATE 78(L) >90 ML/MIN/1. 73 M2 07/30/2024 3:24 PM BRIQUETTE MOLDER [facility] GFR NOTES GFR REFERENCE S: 07/30/2024 3:24 PM BRIQUETTE MOLDER [facility] Comment: THE ESTIMATED GFR IS CALCULATED [...] <15 ml/min/1.73 m2 07/30/2024 12:5 3 PM BRIQUETTE MOLDER us Abelino Hudson MD LABORATORY Final Result [facility] [address] [place] [address], [place] [phone] * (ABNORMAL) CBC W/DIFF AUTOMATED (07/30/2024 12:53 PM BRIQUETTE MOLDER) [facility] WBC 7.07 4.00 - 10.80 x10'3/uL 07/30/2024 3:02 PM [facility] RBC 3.10(L) 4.50 - 6.10 x10'6/uL 07/30/2024 3:02 PM [facility] HGB 10.5(L) 13.0 - 18.0 G/DL 07/30/2024 3:02 PM [facility] HCT 32.1(L) 37.0 - 52.0 % 07/30/2024 3:02 PM [facility] MCV 103.5(H) 78.0 - 100.0 FL 07/30/2024 3:02 PM [facility] MCH 33.9(H) 27.0 - 31.0 PG 07/30/2024 3:02 PM [facility] MCHC 32.7(L) 33.0 - 36.0 G/DL 07/30/2024 3:02 PM [facility] RDW 14.6(H) 11.5 - 14.5 % 07/30/2024 3:02 PM [facility] PLT 168 150 - 350 x10'3/uL 07/30/2024 3:02 PM [facility] MPV 12.6(H) 7.4 - 10.4 FL 07/30/2024 3:02 PM [facility] DIFFERENTIAL TYPE AUTOMATED DIFFERENTIAL 07/30/2024 3:02 PM [facility] NEUTROPHILS % 69.7 % 07/30/2024 3:02 PM [facility] LYMPHOCYTES % 19.2 % 07/30/2024 3:02 PM BRIQUETTE MOLDER [facility] MONOCYTES % 10.0 % 07/30/2024 3:02 PM [facility] EOSINOPHILS % 0.6 % 07/30/2024 3:02 PM [facility] BASOPHILS % 0.4 % 07/30/2024 3:02 PM [facility] IMMATURE GRANS % 0.1 % 07/30/2024 3:02 PM [facility] ABS. NEUTROPHILS 4.92 1.60 - 8.30 x10'3/uL 07/30/2024 3:02 PM [facility] ABS. LYMPHOCYTES 1.36 0.80 - 4.70 x10'3/uL 07/30/2024 3:02 PM [facility] ABS. MONOCYTES 0.71 0.00 - 1.50 x10'3/uL 07/30/2024 3:02 PM [facility] ABS. EOSINOPHILS 0.04 0.00 - 0.40 x10'3/uL 07/30/2024 3:02 PM [facility] ABS. BASOPHILS 0.03 0.00 - 0.20 x10'3/uL 07/30/2024 3:02 PM [facility] ABS. IMMATURE GRANULOCYTES 0.01 0.00 - 0.03 x10'3/uL 07/30/2024 3:02 PM [facility] 07/30/2024 12:5 3 PM BRIQUETTE MOLDER us Abelino Hudson MD LABORATORY Final Result [facility] [address] [place] [address], * XR CHEST PA+LAT (07/30/2024 8:09 AM BRIQUETTE MOLDER) Anatomical Region Laterality Modality Chest Radiographic Jackeline ging 07/30/2024 7:58 AM BRIQUETTE MOLDER Narrative 08/01/2024 4:21 AM BRIQUETTE MOLDER [facility] Internal [address] [address] Examination: XR CHEST PA+LAT Exam time: 07/30/2024 [...] Procedure Note Anthony Parada MD - 08/01/2024 [facility] Internal [address] [address] Examination: XR CHEST PA+LAT Exam time: 07/30/2024 [...] Final Result * COLONOSCOPY (08/06/2019 4:42 PM BRIQUETTE MOLDER) us Documents Scanned SCANNING Final Result from Last 3 Months or Most Recently Relevant to Health Maintenance Additional Health Concerns Infection Onset Date Last Indicated MRSA 09/30/2024 09/30/2024 Insurance [employer] Advance Directives Documents on File Type Date Recorded Patient Tattoo Designer Expl anation Power of Meter Technician 10/12/2022 10/12/22 PO A FOR HEALTH CARE * Full Code (Latest Code Status on File) Date Activated Date Inactivated Comments 10/11/2022 6:40 PM 10/12/2022 4:49 PM * Full Code Date Activated Date Inactivated Comments 10/11/2022 8:09 AM 10/11/2022 6:39 PM * Full Code Date Activated Date Inactivated Comments 08/15/2022 10:25 AM 08/15/2022 4:15 PM Care Teams Cold Mill Supervisor Relationship Specialty Start Date End Date Abelino Hudson MD [address] [place] [address] PCP - General 12/22/15 Brody Chawla MD [address] [address] [place] [address] Consulting Physician ORTHOPAEDIC SURGERY 06/26/24
--- OUTSIDE RECORDS SUMMARY | 2024-10-29 13:09 | XMS_ITS | Encounter Summary ---
Author Organization [facility] Address [address] [place] [address] Care Team Providers Care Youth Minister Name Role Phone Abelino Hudson MD Primary Care Provider [phone] Brody Chawla MD Unavailable [phone] Reason for Referral * Surgical (Routine) - New Request Specialty Diagnoses / Procedures Referred By Myriam gomez Referred To Contact VASCULAR SURGERY Diagnoses Arterial insufficiency of lower extremity (CMS/HCC) Procedures OFFICE/OUTPATIENT NEW LOW MDM 30-44 MINUTES OFFICE/OUTPT VISIT,NEW,LEVL IV OFFICE/OUTPT VISIT,NEW,LEVL V OFFICE/OUTPT VISIT,EST,LEVL III OFFICE/OUTPT VISIT,EST,LEVL IV OFFICE/OUTPT VISIT,EST,LEVL V Liz Yo APNP [address] [facility] [address] [place] [address] Phone: tel: fax: Deja Orellana MD [address] [place] [address] Phone: tel: fax: Referral ID Status Reason Start Date Expiration Date Visits Requested Visits Authorized [id number] New Request Specialty Services 10/28/2024 10/28/2025 1 1 CARVING LATHE OPERATOR Encounter Details Date Type Department Care Team (Late st Contact Info) Description 10/28/2024 Orders Only [facility] [address] [place] [address] Liz Yo APNP [id number] [phone] Social History Tobacco Use Types Packs/Day Years [...] Assessment Author Status No 10/11/2022 6:02 PM WOOD CARVING LATHE OPERATOR Activ e * RETIRED Are you blind or do you have serious difficulty seeing, even when wearing glasses? Answer Date of Assessment Author Status No 10/11/2022 6:02 PM WOOD CARVING LATHE OPERATOR Activ e * Do you have serious [...] Date Author Status No 10/11/2022 6:02 PM WOOD CARVING LATHE OPERATOR [place]on [place] RN Active documented in this encounter Plan of Treatment Upcoming Encounters Date Type Department Care Team (Late st Contact Info) Description 11/03/2024 10:30 AM WOOD CARVING LATHE OPERATOR [facility]ointment [facility] [address] Deja Orellana MD [address] [place] [address] 11/05/2024 1:15 PM WOOD CARVING LATHE OPERATOR Office Visit [facility], [address] [address] Deja Orellana MD [address] [place] [address] 11/28/2024 11:15 AM CDT Office Visit [facility] [address] Kerri Tinoco MD Three [facility] [address] [place] [address] 12/30/2024 8:00 AM CDT Appointment [facility] [place] [address] Kerri Tinoco MD Three [facility] [address] [place] [address] Scheduled Referrals Name Type Priority Associated Diagnoses Orde r Schedule Ambulatory referral to Vascular Surgery Referral Routine Arterial insufficiency of lower extremity (CMS/HCC) Ordered: 10/28/2024 documented as of this encounter Goals Goal Patient Goal Type Associated Problems Recent Progress Patient-Stated? Author Patient will return to prior living situation and remain independent in ADLs upon discharge from hospital Lifestyle On track(2022 12:01 PM WOOD CARVING LATHE OPERATOR) No Stephanie Carlson RN Establish Plan for Symptom Monitoring Lifestyle On track(2022 1:23 PM WOOD CARVING LATHE OPERATOR) No Penny Cisse RN Note: HTN: Patient to monitor blood pressure daily and record readings and call provider with consistent readings >140/90. Patient will maintain a low sodium diet . Patient will call provider with any visual disturbances, headaches or dizziness. Patient to take all medications as prescribed. Monitor - verbalizes recognition of s/s wound infections Lifestyle On track(2022 1:24 PM WOOD CARVING LATHE OPERATOR) No Penny Cisse RN Consistently take medications as Prescribed Lifestyle On track(2022 1:23 PM WOOD CARVING LATHE OPERATOR) Penny Babin RN Medications - demonstrates understanding of how and when to take anticoagulants, dietary restrictions, and signs and symptoms to report to PCP Lifestyle On track(2022 1:24 PM WOOD CARVING LATHE OPERATOR) No Penny Cisse RN documented as of this encounter Visit Diagnoses Diagnosis Venous reflux- Primary Unspecified venous (peripheral) insufficiency Arterial insufficiency of lower extremity (CMS/HCC) documented in this encounter Additional Health Concerns Infection Onset Date Last Indicated Resolved Time MRSA 09/30/2024 09/30/2024 Assessment Noted Time PHQ-9 Depression Total Score: 0 05/08/20 22 8:25 AM CDT documented as of this encounter Care Teams Youth Minister Relationship Specialty Start Date End Date Abelino Hudson MD [address] [place] [address] PCP - General 12/22/15 Brody Chawla MD [address] [address] [place] [address] Consulting Physician ORTHOPAEDIC SURGERY 06/26/24 documented as of this encounter
--- OUTSIDE RECORDS SUMMARY | 2024-10-29 13:09 | XMS_ITS | Clinical Summary ---
Author Organization [facility] Address [address] [place] [address] Care Team Providers Care Emergency Room Technician Name Role Phone Abelino Hudson MD Primary Care Provider Source Comments [facility],non-owned Affiliates and Associated Physician Practices is amultiple site organization consisting of ambulatory clinics and hospital sitesin [place], [place], [place] and [place]. This disclosure is being madepursuant to the Care Everywhere program and may not contain all information available regarding this patient. Last updated 18.[facility] [employer] Allergies No known active allergies Encounters Date Type Department Care Team Description 08/05/2024 8:30 AM RESIDENT INSPECTOR Office Visit [facility] - Orthopedics [address] [place] [address] Katerine Dotson MD History of total left knee replacement (Primary Dx) 08/05/2024 8:18 AM RESIDENT INSPECTOR - 08/05/2024 11:59 PM RESIDENT INSPECTOR Hospital Encounter [facility] [address] DIAGNOSTIC RAD [address] [place] [address] Katerine Dotson MD Discharge Disposition: Home or [...] 4VW OR MORE Routine 08/05/2024 8:38 AM RESIDENT INSPECTOR Left knee pain, unspecified chronicity from Last 3 Months Results * XR Knee Left 4Vw or More (08/05/2024 8:38 AM RESIDENT INSPECTOR) Anatomical Region Laterality Modality Lower Extremity Computed Radiogr aphy 08/05/2024 8:45 AM RESIDENT INSPECTOR Impressions 08/05/2024 8:47 AM RESIDENT INSPECTOR IMPRESSION: Total knee arthroplasty. > Interpreting Provider: Wilder Quach MD on 08/05/2024 8:47 AM Narrative 08/05/2024 8:47 AM RESIDENT INSPECTOR PROCEDURE: XR KNEE LEFT 4VW OR MORE [...] RDERABLES from Last 3 Months Care Teams Emergency Room Technician Relationship Specialty Start Date End Date Abelino Hudson MD [address] [place] [address] PCP - General Internal Medicine 07/16/24
--- OUTSIDE RECORDS SUMMARY | 2024-10-29 13:09 | XMS_ITS | Referral Summary ---
Author Organization [facility] Address [address] [place] [address] Care Team Providers Care Security Coordinator Name Role Phone Abelino Hudson MD Primary Care Provider [phone] Source Comments [facility],non-owned Affiliates and Associated Physician Practices is amultiple site organization consisting of ambulatory clinics and hospital sitesin [place], [place], [place] and [place]. This disclosure is being madepursuant to the Care Everywhere program and may not contain all information available regarding this patient. Last updated 18.[facility] Encounters Date Type Department Care Team Description 08/05/2024 8:18 AM WEB DESIGN SPECIALIST - 08/05/2024 11:59 PM WEB DESIGN SPECIALIST Hospital Encounter [facility] DIAGNOSTIC RAD CSM [address] [facility] [place] [address] Katerine Dotson MD Discharge Disposition: Home or Self Care 08/05/2024 Travel 08/05/2024 8:30 AM WEB DESIGN SPECIALIST Office Visit [facility] [address] [place] [address] Katerine Dotson MD History of total left [...] 4VW OR MORE Routine 08/05/2024 8:38 AM WEB DESIGN SPECIALIST Left knee pain, unspecified chronicity from Last 3 Months Results * XR Knee Left 4Vw or More (08/05/2024 8:38 AM WEB DESIGN SPECIALIST) Anatomical Region Laterality Modality Lower Extremity Computed Radiogr aphy 08/05/2024 8:45 AM WEB DESIGN SPECIALIST Impressions 08/05/2024 8:47 AM WEB DESIGN SPECIALIST IMPRESSION: Total knee arthroplasty. > Interpreting Provider: Wilder Quach MD on 08/05/2024 8:47 AM Narrative 08/05/2024 8:47 AM WEB DESIGN SPECIALIST PROCEDURE: XR KNEE LEFT 4VW OR MORE [...] RDERABLES from Last 3 Months Care Teams Security Coordinator Relationship Specialty Start Date End Date Abelino Hudson MD [address] [place] [phone] PCP - General Internal Medicine 07/16/24
--- OUTSIDE RECORDS SUMMARY | 2024-10-29 13:09 | XMS_ITS | Encounter Summary ---
Author Organization [facility] Address [address] [place] [address] Care Team Providers Care Papeterie Table Assembler Name Role Phone Abelino Hudson MD Primary Care Provider [phone] Penny Cisse RN Unavailable [phone] Brody Chawla MD Unavailable [phone] Encounter Details Date Type Department Care Team (Late st Contact Info) Description 08/14/2022 Hospital Orders Only [facility] [place] [place] [phone] Basil Day MD Three [facility]. [address] [place], [place] [phone] Social History Tobacco Use Types Packs/Day Years [...] Coronavirus/COVID-19? No / Unsure 08/15/2022 7:27 AM SOLAR ENERGY ENGINEER documented as of this encounter Plan of Treatment Upcoming Encounters Date Type Department Care Team (Late st Contact Info) Description 11/03/2024 10:30 AM SOLAR ENERGY ENGINEER Appointment [facility] [place] [address] Deja Orellana MD [address] [place] [address] 11/05/2024 1:15 PM SOLAR ENERGY ENGINEER Office Visit [facility], [address] [address] Deja Orellana MD [address] [place] [address] 11/28/2024 11:15 AM CDT Office Visit [facility] [phone] Kerri Tinoco MD Three [facility] [address] [place] [address] 12/30/2024 8:00 AM CDT Appointment [facility] ONE [place] [address] Kerri Tinoco MD Three [facility] [address] [place] [address] documented as of this encounter Visit Diagnoses [...] documented as of this encounter Care Teams Papeterie Table Assembler Relationship Specialty Start Date End Date Abelino Hudson MD [address] [place] [address] PCP - General 12/22/15 Penny Cisse, RN [address] [place], [place] [address] At Risk Paraprofessional (Ambulatory) REGISTERED NURSE 10/11/22 11/07/22 Brody Chawla MD [address] [address] [place] [address] Consulting Physician ORTHOPAEDIC SURGERY 06/26/24 documented as of this encounter
--- OUTSIDE RECORDS SUMMARY | 2024-10-29 13:09 | XMS_ITS | Referral Summary ---
Author Organization [facility] [address] Address [address] [place] [address] Care Team Providers Care Personal Insurance Advisor Name Role Phone Abelino Hudson MD Primary Care Provider [phone] Cesar Andres MD Unavailable [phone] Allergies No known active allergies Medications allopurinol [...] 19 Assessment & Plan (09/11/2019 10:20 AM ALTERATIONS MANAGER): S/p bio MV replacement (31 mm MAGNA) [repair was aborted) and CABG x 1 (LION- LAD) on 08/26 See mitral valve replacement problem (above) Drainage from wound 09/09/2019 Assessment & Plan (09/11/2019 10:21 AM ALTERATIONS MANAGER): Prophylactic antibiotics, at present--linezolid & Zosyn WBC last night = 12.4--continues afebrile No sternal drainage or erythema CT scan on 09/08 with results including: Post CABG and mitral valve replacement changes with a small retrosternal gas/fluid collection that likely represents a small postoperative seroma and another smaller, discrete fluid collection along the left internal mammary artery compatible with a small hematoma. Atrial fibrillation ([facility]) 09/04/2019 Assessment & Plan (09/11/2019 10:35 AM ALTERATIONS MANAGER): Ongoing ATC telemetry--NSR at present Amiodarone 400 mg daily continues--Daily EKG checks for QTc TTE: EF 71%, no effusion, mod RV reduction Metoprolol 12.5 BID Assessment & Plan (09/07/2019 10:36 AM ALTERATIONS MANAGER): Reduced amiod to daily. Today is 480 TTE: EF 71%, no effusion, mod RV reduction Metoprolol 12.5 BID Patient does not have epicardial wires Acute renal failure with acu te tubular necrosis superimposed on stage 2 chronic kidney disease ([facility]) 08/27/2019 Overview (08/29/2019): Pre-op Actuarial Technician 0.89 w/ estimated GFR 89.9 (CKD II). Assessment & Plan (09/11/2019 10:22 AM ALTERATIONS MANAGER): Continue BID lasix and daily aldactone , at present Creatinine recovering - down to 1.41 last night UO approx 700 mls over past 24 hours Pt below pre op weight by approx 6 kg Assessment & Plan (09/08/2019 10:32 AM ALTERATIONS MANAGER): Continue the lasix and aldactone daily Creatinine recovering - 1.70 UO -2650 in 24 hours Pt below pre op weight by 6 kg Assessment & Plan (09/01/2019 3:03 PM ALTERATIONS MANAGER): Likely ATN following surgery with long CPB. [...] F/U. Assessment & Plan (09/01/2019 5:25 AM ALTERATIONS MANAGER): Likely ATN following surgery with long CPB. [...] 4.33. Assessment & Plan (08/31/2019 7:20 AM ALTERATIONS MANAGER): Creatinine plateau ~ 5.2. FB negative 1.7L with auto diuresis. Likely ATN following surgery with long CPB. - Avoid nephrotoxins as able - Renally dose all medications as appropriate - Optimize SBP for adequate renal perfusion, SBP > 110 - Hold on diuresis for now with good urine output - BMP at noon Assessment & Plan (08/31/2019 2:04 AM ALTERATIONS MANAGER): Creatinine appears to have peaked at 5.2. Auto-diuresing. Likely ATN following surgery with long CPB. - Avoid nephrotoxins as able - Renally dose all medications as appropriate - Optimize SBP for adequate renal perfusion, SBP > 110 - Hold on diuresis for now with good urine output Assessment & Plan (08/30/2019 2:20 PM ALTERATIONS MANAGER): Creatinine 5.23 (4.87) but responded to 40 [...] output Assessment & Plan (08/30/2019 4:52 AM ALTERATIONS MANAGER): Creatinine continues to trend up. JAMES likely d/t ATN secondary to long CPB time (3h 20m). Urine output remains adequate. Continues to respond to lasix. Received 40 mg ivp today. - Avoid nephrotoxins as able - Renally dose all medications as appropriate - Optimize SBP for adequate renal perfusion, SBP > 110 - Maintain negative fluid balance Assessment & Plan (08/29/2019 1:24 PM ALTERATIONS MANAGER): Actuarial Technician up trending at 4.92 (4.67). JAMES likely d/t ATN secondary to long CPB time (3h 20m). UO ~ 80 ml/hr overnight after Lasix 40 IV x 1. - Avoid nephrotoxins as able - Renally dose all medications as appropriate - Optimize SBP for adequate renal perfusion, SBP > 110 - Repeat BMP at 1200 1130: Actuarial Technician down trending to 4.87 Assessment & Plan (08/28/2019 11:45 PM ALTERATIONS MANAGER): Likely ATN related to long CPB time [...] 0300. Assessment & Plan (08/28/2019 11:15 AM ALTERATIONS MANAGER): Likely ATN related to long CPB time [...] perfusion Assessment & Plan (08/28/2019 3:43 AM ALTERATIONS MANAGER): Likely ATN related to long CPB time. [...] BMP. Assessment & Plan (08/27/2019 1:45 PM ALTERATIONS MANAGER): Cr up to 1.72 from 1.1. Oliguric. Likely ATN related to long CPB time. - Avoid nephrotoxins and hypotension - BMP at noon - 40 Lasix x1 Assessment & Plan (08/27/2019 2:51 AM ALTERATIONS MANAGER): Cr up to 1.32 from 1.1 post-op. Very minimal urine output. Likely ATN related to long CPB time. -avoid nephrotoxins and hypotension -d/c ulises-op vanc -MAP > 70 to optimize renal perfusion Pleural effusion 08/27/2019 Assessment & Plan (09/11/2019 10:25 AM ALTERATIONS MANAGER): --CXR 09/07 Small bibasilar pleural effusions again noted. Mild right base atelectasis again seen. --CT chest w/ results including: A small left pleural effusion is mildly loculated and contains a few internal punctate gas bubbles, likely postsurgical in nature. No right pleural effusion --On RA, no complaints Assessment & Plan (09/08/2019 10:33 AM ALTERATIONS MANAGER): CXR 09/07 Small bibasilar pleural effusions again noted. Mild right base atelectasis again seen. On RA, no complaints Assessment & Plan (08/31/2019 7:22 AM ALTERATIONS MANAGER): CXR only with bibasilar atelectasis now. However, pleural chest tube output remains high ~ 800ml/24hrs. Remains on room air. Good urine output. - Hold on diuresis for now but aim for negative FB - Encourage incentive spirometry - Out of bed, physical therapy - Maintain pleural chest tubes to -20 suction Assessment & Plan (08/30/2019 2:24 PM ALTERATIONS MANAGER): CXR with small L effusion but on room air. 2+ BLE edema noted. FB (-) 228ml with Lasix 40 yesterday. - Encourage use of acapella - Out of bed, physical therapy - Consider diuretics if FB + or new O2 requirement - DC mediastinal chest tubes today per CTS, keep pleural tubes Assessment & Plan (08/29/2019 1:19 PM ALTERATIONS MANAGER): Patient uses 2L NC occasionally but mainly on room air. CXR w/ trace LLL effusion vs atelectasis. FB (-) 160 with Lasix 20 x 1 and then 40 x 1. - Encourage use of acapella - Out of bed, physical therapy - Wean O2 for oxygen saturations > 92% - FBG (=) d/t JAMES Assessment & Plan (08/28/2019 11:15 AM ALTERATIONS MANAGER): Patient uses 2L NC occasionally but mainly on room air. CXR w/ bibasilar atelectasis. - Encourage use of acapella - Out of bed, physical therapy - Wean O2 for oxygen saturations > 92% - 20 Lasix x1 Assessment & Plan (08/27/2019 1:44 PM ALTERATIONS MANAGER): Extubated 0100. On 4-6L NC. CXR w/ atelectasis. - Encourage incentive spirometry - Out of bed, physical therapy - Wean O2 for oxygen saturations > 92% - 40 Lasix x1 Acute blood loss anemia 08/26/2019 Overview (08/29/2019): Pre-op H/H 14.7/42.7. Has received 2U PRBCs intra-op. Assessment & Plan (09/09/2019 11:19 AM ALTERATIONS MANAGER): Expected, related to post op ABLA Stable, daily CBC No indication for transfusion today Assessment & Plan (09/05/2019 9:51 AM ALTERATIONS MANAGER): Stable, daily CBC No indication for transfusion today Assessment & Plan (08/31/2019 7:24 AM ALTERATIONS MANAGER): Expected anemia d/t surgical blood loss. H&H stable 05/21/28. High pleural chest tube output but serosanguinous. - No indication for transfusion - Daily CBC unless clinically indicated sooner Assessment & Plan (08/29/2019 1:33 PM ALTERATIONS MANAGER): Expected anemia d/t surgical blood loss. H/H stable at 9.4/28.6 (9.7/28.8). Moderate bleeding from CTs at 920ml over last 24hrs but mostly serosanguinous. No requirement of vasopressor support. - No clinical indication for transfusion at this time - Repeat CBC at 1200 to determine trend 1130: H/H 9.7/29.7. Will repeat CBC in am. Assessment & Plan (08/28/2019 11:15 AM ALTERATIONS MANAGER): Expected anemia following surgery. H&H stable 9.7/28.8 (10.4/31.0) - No indication for transfusion - Daily CBC Assessment & Plan (08/27/2019 1:45 PM ALTERATIONS MANAGER): Expected anemia following surgery. H&H stable. - No indication for transfusion - Daily CBC Assessment & Plan (08/27/2019 2:30 AM ALTERATIONS MANAGER): Expected following cardiac surgery. Moderate chest tube output. Post-op H/H 11.1/33. No pressors. - No acute indication for transfusion - Monitor CT output and notify CT surgery if > 150 for 2 consecutive hours - f/u am cbc Assessment & Plan (08/26/2019 8:02 PM ALTERATIONS MANAGER): Expected following cardiac surgery. H&H stable. Arrives to CTICU hemodynamically supported on Epi 0.06 mcg/kg/min. - No indication for transfusion, consider if patient becomes hemodynamically unstable with increased pressor requirements or hgb < 8 and symptomatic - CBC daily ETOH abuse 08/17/2019 Assessment & Plan (09/11/2019 10:34 AM ALTERATIONS MANAGER): Continue thiamine 100 mg po daily Continue folic acid 1mg po daily Assessment & Plan (09/02/2019 11:38 AM ALTERATIONS MANAGER): Continue thiamine 100 mg po daily Continue folic acid 1mg po daily Assessment & Plan (08/31/2019 7:20 AM ALTERATIONS MANAGER): Pt reports drinking 10 beers per day but quit about 10 days before surgery. Calm without tremor or delirium. - Thiamine, folate supplements - CIWA scale (has not required benzos) - Monitor for DTs Assessment & Plan (08/30/2019 2:21 PM ALTERATIONS MANAGER): Pt reports drinking 10 beers per day but quit about 10 days before surgery. Currently calm without tremor or delirium. - Thiamine, folate supplements - CIWA scale (has not required benzos) - Monitor for DTs Assessment & Plan (08/29/2019 1:20 PM ALTERATIONS MANAGER): Pt reports drinking 10 beers per day w/ associated very mild transaminitis. Currently calm without tremor or delirium. - Thiamine, folate supplements - [facility] protocol - Monitor for DTs Assessment & Plan (08/28/2019 11:15 AM ALTERATIONS MANAGER): Pt reports drinking 10 beers per day. Currently calm with mild tremor noted. - Thiamine, folate supplements - [facility] protocol - Monitor for DTs Assessment & Plan (08/27/2019 1:34 PM ALTERATIONS MANAGER): Pt reports drinking 10 beers per day. Currently calm with mild tremor noted. - Thiamine, folate - [facility] protocol - Monitor for DTs Assessment & Plan (08/27/2019 5:15 AM ALTERATIONS MANAGER): Reportedly 3-5 beers per day. -monitor for signs of DT's Assessment & Plan (08/18/2019 11:12 AM ALTERATIONS MANAGER): H/o heavy beer consumption > 12 beers/day [...] mcg/kg/min. Assessment & Plan (09/11/2019 10:20 AM ALTERATIONS MANAGER): S/p bio MV replacement (31 mm MAGNA) [...] note. Assessment & Plan (09/07/2019 10:36 AM ALTERATIONS MANAGER): S/p 08/26 aborted MV repair, bio MVR (31 mm MAGNA), and CABG x 1 (LION-LAD) No tubes, wires or lines Continue ASA, beta alina QTc 480 on daily amiod 400mg Assessment & Plan (09/01/2019 2:55 PM ALTERATIONS MANAGER): ICU Standards of Care: - ASA for [...] Albert Assessment & Plan (08/31/2019 7:25 AM ALTERATIONS MANAGER): ICU Standards of Care: - ASA for anticoagulation - Statin daily for CABG - Hold B-alina until off inotrope support - Colace, Senna, and Miralax for bowel regimen (pt had BM yesterday) - Accuchecks BID - Cardiac diet - H2 ailna for GI prophylaxis - SCDs and SQH for DVT ppx - PT for decreased mobility post surgery Assessment & Plan (08/30/2019 2:25 PM ALTERATIONS MANAGER): ICU Standards of Care: - ASA for [...] surgery Assessment & Plan (08/29/2019 1:16 PM ALTERATIONS MANAGER): ICU Standards of Care: - Cont ASA [...] 160 Assessment & Plan (08/28/2019 11:04 PM ALTERATIONS MANAGER): s/p MVR and CABG x 1. He [...] mobility Assessment & Plan (08/28/2019 11:16 AM ALTERATIONS MANAGER): s/p MVR and CABG x 1. He [...] mobility Assessment & Plan (08/28/2019 3:47 AM ALTERATIONS MANAGER): s/p MVR. He remains hemodynamically supported on Epi at 0.05 mcg/kg/min with an ScVO2 74.6%. - ASA Daily - Maintain a goal SBP < 140 - Eventually BB initiation once off inotropic support Assessment & Plan (08/26/2019 7:36 PM ALTERATIONS MANAGER): s/p MVR. Intra-op ECHO revealed evidence of normally functioning bio MV with MG=4 and no paravalvular leak on EPI .1 mcg/kg/min. He arrives hemodynamically supported on Epi at 0.04 mcg/kg/min. - ASA 300 mg GA now - ASA Daily - Maintain a goal SBP < 140 - Eventually BB initiation once off inotropic support Assessment & Plan (08/19/2019 12:32 PM ALTERATIONS MANAGER): 06/23 TTE shows preserved biventricular function and severe mitral regurgitation due to P2 prolapse -Plan for MV repair/ replacement -NPO at midnight -PFTs and carotids complete -Baseline labs, EKG, CXR obtained - consents signed Resolved Problems Problem Noted Date Diagnosed Date Resolved Date Thrombocytopenia 08/29/2019 08/30/2019 Assessment & Plan (08/29/2019 1:35 PM ALTERATIONS MANAGER): Pre-op Plt 112. Has received 3U Plts [...] 09/02/2019 Assessment & Plan (08/31/2019 7:23 AM ALTERATIONS MANAGER): Garcia cultures sent 08/29 in setting of worsening leukocytosis. Started on ceftriaxone for UA with WBC, leuk esterase, and bacteria. Urine culture finalized negative. Ceftriaxone DC'd last night. WBC continues to trend down. - f/u blood cultures Assessment & Plan (08/31/2019 3:36 AM ALTERATIONS MANAGER): Blood cultures and UA sent yesterday in setting of worsening leukocytosis. UA with WBC, leuk esterase, and bacteria. Started on empiric ceftriaxone. WBC continues to trend down, now 12.6. Remains afebrile. Urine culture now final negative - d/c ceftriaxone - f/u blood cultures Assessment & Plan (08/30/2019 2:30 PM ALTERATIONS MANAGER): Blood cultures and UA sent yesterday in setting of worsening leukocytosis. UA with WBC, leuk esterase, and bacteria. Started on empiric ceftriaxone. WBC down to 18.5 (22.4) today, afebrile. - f/u urine culture and blood culture results - Ceftriaxone for 5 day course unless urine culture results negative Assessment & Plan (08/30/2019 5:12 AM ALTERATIONS MANAGER): WBC peaked at 22 today. Afebrile. UA [...] ceftriaxone Assessment & Plan (08/29/2019 6:24 PM ALTERATIONS MANAGER): WBC up trending at 19.9 (17.8). Tm [...] 08/28/2019 Assessment & Plan (08/27/2019 1:45 PM ALTERATIONS MANAGER): Resolving. Lactate down to 5 from 11. - No need to trend lactate - Noon BMP Assessment & Plan (08/27/2019 2:09 AM ALTERATIONS MANAGER): Likely related to elevated lactate at 11, [...] 08/27/2019 Assessment & Plan (08/27/2019 2:32 AM ALTERATIONS MANAGER): Initial phos 2.8. Repeat down to 0.7. Labs resent and result unchanged at 0.7. -30 mMol KPhos Hypokalemia 08/27/2019 08/27/2019 Assessment & Plan (08/27/2019 2:44 AM ALTERATIONS MANAGER): Post-op WBK 5.1. Underlying rhythm NSR 70's with frequent PAC's. Pt receiving 60 mEq IV KCl. -f/u WBK after repletion Hyperglycemia 08/27/2019 08/31/2019 Assessment & Plan (08/30/2019 2:27 PM ALTERATIONS MANAGER): No prior history of DM. Likely exacerbated by Epi and inflammatory response following surgery. BG 100-130s last 24 hours. - Cont SSI QID Assessment & Plan (08/29/2019 1:30 PM ALTERATIONS MANAGER): No prior history of DM. Hyperglycemia in the post-operative period likely inflammatory response s/p invasive surgery w/ pressor support. - Cont SSI - Restart Insulin gtt for BS > [address] ICU protocol Assessment & Plan (08/28/2019 11:47 PM ALTERATIONS MANAGER): No history of DM. Likely related to stress response. Currently, BG overnight 129-150. - HD SSI to high dose to maintain BS < 180 - Accuchecks Q 4 Assessment & Plan (08/28/2019 11:16 AM ALTERATIONS MANAGER): No history of DM. Likely related to stress response. BG overnight 150-190. - Increase SSI to high dose to maintain BS < 180 -Accuchecks Q 4 Assessment & Plan (08/28/2019 3:49 AM ALTERATIONS MANAGER): No history of DM. Likely related to stress response. BG overnight > 180. - Continue glycemic control with SSI per CTICU protocol to maintain BG <180 Assessment & Plan (08/27/2019 2:53 AM ALTERATIONS MANAGER): Arrived to ICU on insulin gtt. No history of DM. Likely related to stress response. -continue insulin gtt per ICU protocol. Acute post-operative pain 08/26/2019 Assessment & Plan (09/02/2019 11:38 AM ALTERATIONS MANAGER): Continue prn pain medication Assessment & Plan (08/31/2019 7:20 AM ALTERATIONS MANAGER): Pain well controlled on current regimen. - Scheduled APAP x 5 days - PRN Oxycodone - Lidocaine patches to chest wall Assessment & Plan (08/30/2019 2:22 PM ALTERATIONS MANAGER): Pain well controlled on current regimen. - Scheduled APAP x 5 days - PRN Oxycodone - Lidocaine patches to chest wall Assessment & Plan (08/29/2019 1:04 PM ALTERATIONS MANAGER): Expected post-operative pain S/P sternotomy for CT Sx. Pain well controlled on current regimen. - Cont scheduled APAP - Cont prn Oxy - Cont Lidocaine patches Assessment & Plan (08/28/2019 11:15 AM ALTERATIONS MANAGER): Expected postop pain. Had increased incisional pain overnight requiring one dose of Dilaudid, otherwise pain well controlled. - Scheduled Tylenol and lidocaine patches - PRN oxycodone for breakthrough Assessment & Plan (08/27/2019 1:45 PM ALTERATIONS MANAGER): Expected postop pain. Well controlled. - Scheduled Tylenol and lidocaine patches - PRN oxycodone with dilaudid for breakthrough Assessment & Plan (08/27/2019 2:25 AM ALTERATIONS MANAGER): Sedated with propofol - changed propofol to precedex in anticipation of extubation - prn fentanyl - Once extubated, change fentanyl to dilaudid - add scheduled tylenol and prn oxycodone when able to safely swallow Assessment & Plan (08/26/2019 7:38 PM ALTERATIONS MANAGER): He arrives intubated and sedated on Dex gtt. Resting with eyes closed on exam. Appears to be comfortable on exam. - Discontinue Dex gtt - Initiate prop gtt for sedation until acidosis improves - Once extubated will change pain medication regimen to the following: - PRN oxycodone - Dilaudid PRN for breakthrough Acute respiratory failure 08/26/2019 Assessment & Plan (08/27/2019 2:19 AM ALTERATIONS MANAGER): Post-procedural short-term ventilator support with anticipated extubation. [...] incident Assessment & Plan (08/26/2019 8:23 PM ALTERATIONS MANAGER): Post-procedural short-term ventilator support with anticipated extubation. [...] ABG - Per Dr. Albert, strip CT [id number]: POC revealed pH 7.28/ dzUT674/HCO3 20/ paO2 100--> 2 amps bicarb and [...] mcg/kg/min. Assessment & Plan (09/01/2019 2:49 PM ALTERATIONS MANAGER): TTE 08/29 with LVEF 54%, normal RV [...] diuresis Assessment & Plan (09/01/2019 2:43 AM ALTERATIONS MANAGER): TTE 08/29 with LVEF 54%, normal RV function, mild AR, mild TR; paradoxical septal motion noted. Epi decreased to 0.04 today in light of ongoing hypertension. - Keep Epi at 0.04 mcg/kg/min per Dr. Patino in the setting of JAMES - Amio 400 TID for afib prophylaxis - Hold on diuresis with good auto diuresis Assessment & Plan (08/31/2019 7:19 AM ALTERATIONS MANAGER): Remains on epi 0.05 mcg/kg/min. TTE 08/29 [...] diuresis Assessment & Plan (08/31/2019 2:25 AM ALTERATIONS MANAGER): Remains on epi 0.05 mcg/kg/min. TTE 08/29 [...] diuresis Assessment & Plan (08/30/2019 2:19 PM ALTERATIONS MANAGER): Remains on ep 0.05 mcg/kg/min. TTE 08/29 [...] 100ml/hr Assessment & Plan (08/30/2019 5:06 AM ALTERATIONS MANAGER): Remains on ep 0.05 mcg/kg/min. TTE today with LVEF 54%, normal RV function, mild AR, mild TR; paradoxical septal motion noted. - Keep Epi at 0.05 mcg/kg/min per Dr. Patino in the setting of worsening JAMES - Amio 400 TID for afib prophylaxis - Maintain negative fluid balance Assessment & Plan (08/29/2019 1:13 PM ALTERATIONS MANAGER): Overall improving, currently on Epi 0.05. ScVO2 [...] Repeat ScVO2 and BMP at 1200 1130: Actuarial Technician improved to 4.87 (4.92) but ScVO2 59.3. No increased oxygenation needed. TTE still pending. Assessment & Plan (08/28/2019 11:42 PM ALTERATIONS MANAGER): Improving. Postop echo w/ normal biventricular function [...] 0300. Assessment & Plan (08/28/2019 11:15 AM ALTERATIONS MANAGER): Resolving. Postop echo w/ normal biventricular function [...] 1200 Assessment & Plan (08/28/2019 3:51 AM ALTERATIONS MANAGER): Improving. Postop echo w/ normal biventricular function [...] mcg/kg/min. Assessment & Plan (08/27/2019 1:44 PM ALTERATIONS MANAGER): Resolving. Postop echo w/ normal biventricular function on Epi at 0.06. CI > 3. Significant lactic acidosis postop now improving. - DC swan/cordis - Keep Epi 0.06 today per Maniar - AAI @ 90 - Amio 400 TID for afib prophylaxis per Maniar - 40 Lasix x1 Assessment & Plan (08/27/2019 1:54 AM ALTERATIONS MANAGER): Post-op echo with normal biventricular function and [...] 70's) Assessment & Plan (08/26/2019 8:17 PM ALTERATIONS MANAGER): S/p CABG x1 and MVR.He received a [...] 09/09/2019 Assessment & Plan (09/06/2019 11:46 AM ALTERATIONS MANAGER): S/p CABG x1 on 08/26 On asa, statin, BB Wires out, TTE done Assessment & Plan (08/28/2019 11:16 AM ALTERATIONS MANAGER): S/p coronary bypass grafting x1 (LION to [...] surgery Assessment & Plan (08/28/2019 3:45 AM ALTERATIONS MANAGER): S/p coronary bypass grafting x1 (LION to [...] surgery Assessment & Plan (08/27/2019 1:35 PM ALTERATIONS MANAGER): S/p coronary bypass grafting x1 (LION to [...] surgery Assessment & Plan (08/26/2019 7:36 PM ALTERATIONS MANAGER): S/p coronary bypass grafting x1 (LION to the LAD). Post-op care to include: - ASA 300 mg GA x1 - ASA 81 mg PO Daily [...] surgery Assessment & Plan (08/18/2019 11:10 AM ALTERATIONS MANAGER): 06/02 left heart catheterization showed a proximal LAD lesion with a right dominant system -plan for 08/19 CABGx1 LION to the LAD anastomosis -continue asprin Hypertension 08/17/2019 09/09/2019 Assessment & Plan (08/18/2019 11:11 AM ALTERATIONS MANAGER): Systolic BP 101-146 this admission -Continue Toprol [...] on file Legal Sex Male 2:58 AM ALTERATIONS MANAGER Gender Identity Not on file Sexual Orientation [...] on file Medical Devices Implanted Type Area Molded Parts Inspector Device Identifier Shelf Expiration Date Model / Serial / Lot [employer] [id number] Roseanne-Edward s Perimount Magna 31mm Bioprosthesis Ease Heart - [id number] - [id number] Implanted:Qty: 1 on 08/26/2019 by Felton Albert MD at [facility] N/A: Heart [employer] 01/01/2022 [id number] / [id number] / [place] [address] [address] [place] [address] [facility] Advance Directives For more information, please contact: [phone] * Full Code (Latest Code Status on File) Date Activated Date Inactivated Comments 09/12/2019 7:41 PM * Full Code Date Activated Date Inactivated Comments 08/26/2019 5:35 PM 09/11/2019 7:26 PM * Full Code Date Activated Date Inactivated Comments 08/17/2019 11:35 AM 08/20/2019 3:26 PM Care Teams Personal Insurance Advisor Relationship Specialty Start Date End Date Abelino Hudson MD [address] [place] [address] PCP - General Internal Medicine 03/03/19 Cesar Andres MD [address] [address] Consulting Physician Cardiology 08/07/19
--- OUTSIDE RECORDS SUMMARY | 2024-10-29 13:09 | XMS_ITS | Patient Health Summary ---
Author Organization [facility] Address [address] [place] [address] Care Team Providers Care Cereal Popper Name Role Phone Abelino Hudson MD Primary Care Provider Note from [facility],non-owned Affiliates and Associated Physician Practices is amultiple site organization consisting of ambulatory clinics and hospital sitesin [place], [place], [place] and [place]. This disclosure is being madepursuant to the Care Everywhere program and may not contain all information available regarding this patient. Last updated 18.[facility] [employer] Allergies No known active allergies Social History [...] Left 4Vw or More (08/05/2024 8:38 AM TODDLER NANNY) Anatomical Region Laterality Modality Lower Extremity Computed Radiogr aphy 08/05/2024 8:45 AM TODDLER NANNY Impressions 08/05/2024 8:47 AM TODDLER NANNY IMPRESSION: Total knee arthroplasty. > Interpreting Provider: Wilder Quach MD on 08/05/2024 8:47 AM Narrative 08/05/2024 8:47 AM TODDLER NANNY PROCEDURE: XR KNEE LEFT 4VW OR MORE [...] MD DIAGNOSTIC IMAGING O RDERABLES Care Teams Cereal Popper Relationship Specialty Start Date End Date Abelino Hudson MD [address] [place] [id number] PCP - General Internal Medicine 07/16/24
--- OUTSIDE RECORDS SUMMARY | 2024-10-29 13:09 | XMS_ITS | Encounter Summary ---
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 Answer Date of Assessment Author Status No 10/11/2022 6:02 PM SHELLFISH PROCESSING LABORER Activ e * Do you have serious [...] st Contact Info) Description 11/03/2024 10:30 AM SHELLFISH PROCESSING LABORER Appointment [facility] [place] [address] Deja Orellana MD [address] [place], [place] [id number] 11/05/2024 1:15 PM SHELLFISH PROCESSING LABORER Office Visit [facility], [facility] [address] [place] [address] Deja Orellana MD [address] [place] [address] 11/28/2024 11:15 AM CDT Office Visit [facility] [phone] Kerri Tinoco MD [facility] [address] [place] [address] 12/30/2024 8:00 AM CDT Appointment [facility] [place] [address] Kerri Tinoco MD [facility] [address] [place] [address] documented as of this encounter Goals Goal Patient Goal Type Associated Problems Recent Progress Patient-Stated? Author Patient will return to prior living situation and remain independent in ADLs upon discharge from hospital Lifestyle On track(2022 12:01 PM SHELLFISH PROCESSING LABORER) No Stephanie Carlson RN Establish Plan for Symptom Monitoring Lifestyle On track(2022 1:23 PM SHELLFISH PROCESSING LABORER) No Penny Cisse RN Note: HTN: Patient to monitor blood pressure daily and record readings and call provider with consistent readings >140/90. Patient will maintain a low sodium diet . Patient will call provider with any visual disturbances, headaches or dizziness. Patient to take all medications as prescribed. Monitor - verbalizes recognition of s/s wound infections Lifestyle On track(2022 1:24 PM SHELLFISH PROCESSING LABORER) No Penny Cisse RN Consistently take medications as Prescribed Lifestyle On track(2022 1:23 PM SHELLFISH PROCESSING LABORER) No Penny Cisse RN Medications - demonstrates understanding of how and when to take anticoagulants, dietary restrictions, and signs and symptoms to report to PCP Lifestyle On track(2022 1:24 PM SHELLFISH PROCESSING LABORER) No Penny Cisse RN documented as of this encounter Visit Diagnoses Not on filedocumented in this encounter Additional Health Concerns Infection Onset Date Last Indicated Resolved Time 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
--- OUTSIDE RECORDS SUMMARY | 2024-10-29 13:09 | XMS_ITS | Clinical Summary ---
Author Organization [facility] [place] [address] Address [address] [place] [address] Care Team Providers Care Teacher Visually Impaired Name Role Phone Abelino Hudson MD Primary Care Provider [phone] Cesar Andres MD Unavailable Allergies No known active allergies Medications allopurinol [...] 19 Assessment & Plan (09/11/2019 10:20 AM FINISHER ACCORDION): S/p bio MV replacement (31 mm MAGNA) [repair was aborted) and CABG x 1 (LION- LAD) on 08/26 See mitral valve replacement problem (above) Drainage from wound 09/09/2019 Assessment & Plan (09/11/2019 10:21 AM FINISHER ACCORDION): Prophylactic antibiotics, at present--linezolid & Zosyn WBC last night = 12.4--continues afebrile No sternal drainage or erythema CT scan on 09/08 with results including: Post CABG and mitral valve replacement changes with a small retrosternal gas/fluid collection that likely represents a small postoperative seroma and another smaller, discrete fluid collection along the left internal mammary artery compatible with a small hematoma. Atrial fibrillation ([facility]) 09/04/2019 Assessment & Plan (09/11/2019 10:35 AM FINISHER ACCORDION): Ongoing ATC telemetry--NSR at present Amiodarone 400 mg daily continues--Daily EKG checks for QTc TTE: EF 71%, no effusion, mod RV reduction Metoprolol 12.5 BID Assessment & Plan (09/07/2019 10:36 AM FINISHER ACCORDION): Reduced amiod to daily. Today is 480 TTE: EF 71%, no effusion, mod RV reduction Metoprolol 12.5 BID Patient does not have epicardial wires Acute renal failure with acu te tubular necrosis superimposed on stage 2 chronic kidney disease ([facility]) 08/27/2019 Overview (08/29/2019): Pre-op Cable Mock Up Assembler 0.89 w/ estimated GFR 89.9 (CKD II). Assessment & Plan (09/11/2019 10:22 AM FINISHER ACCORDION): Continue BID lasix and daily aldactone , at present Creatinine recovering - down to 1.41 last night UO approx 700 mls over past 24 hours Pt below pre op weight by approx 6 kg Assessment & Plan (09/08/2019 10:32 AM FINISHER ACCORDION): Continue the lasix and aldactone daily Creatinine recovering - 1.70 UO -2650 in 24 hours Pt below pre op weight by 6 kg Assessment & Plan (09/01/2019 3:03 PM FINISHER ACCORDION): Likely ATN following surgery with long CPB. [...] F/U. Assessment & Plan (09/01/2019 5:25 AM FINISHER ACCORDION): Likely ATN following surgery with long CPB. [...] 4.33. Assessment & Plan (08/31/2019 7:20 AM FINISHER ACCORDION): Creatinine plateau ~ 5.2. FB negative 1.7L with auto diuresis. Likely ATN following surgery with long CPB. - Avoid nephrotoxins as able - Renally dose all medications as appropriate - Optimize SBP for adequate renal perfusion, SBP > 110 - Hold on diuresis for now with good urine output - BMP at noon Assessment & Plan (08/31/2019 2:04 AM FINISHER ACCORDION): Creatinine appears to have peaked at 5.2. Auto-diuresing. Likely ATN following surgery with long CPB. - Avoid nephrotoxins as able - Renally dose all medications as appropriate - Optimize SBP for adequate renal perfusion, SBP > 110 - Hold on diuresis for now with good urine output Assessment & Plan (08/30/2019 2:20 PM FINISHER ACCORDION): Creatinine 5.23 (4.87) but responded to 40 [...] output Assessment & Plan (08/30/2019 4:52 AM FINISHER ACCORDION): Creatinine continues to trend up. JAMES likely d/t ATN secondary to long CPB time (3h 20m). Urine output remains adequate. Continues to respond to lasix. Received 40 mg ivp today. - Avoid nephrotoxins as able - Renally dose all medications as appropriate - Optimize SBP for adequate renal perfusion, SBP > 110 - Maintain negative fluid balance Assessment & Plan (08/29/2019 1:24 PM FINISHER ACCORDION): Cable Mock Up Assembler up trending at 4.92 (4.67). JAMES likely d/t ATN secondary to long CPB time (3h 20m). UO ~ 80 ml/hr overnight after Lasix 40 IV x 1. - Avoid nephrotoxins as able - Renally dose all medications as appropriate - Optimize SBP for adequate renal perfusion, SBP > 110 - Repeat BMP at 1200 1130: Cable Mock Up Assembler down trending to 4.87 Assessment & Plan (08/28/2019 11:45 PM FINISHER ACCORDION): Likely ATN related to long CPB time [...] 0300. Assessment & Plan (08/28/2019 11:15 AM FINISHER ACCORDION): Likely ATN related to long CPB time [...] perfusion Assessment & Plan (08/28/2019 3:43 AM FINISHER ACCORDION): Likely ATN related to long CPB time. [...] BMP. Assessment & Plan (08/27/2019 1:45 PM FINISHER ACCORDION): Cr up to 1.72 from 1.1. Oliguric. Likely ATN related to long CPB time. - Avoid nephrotoxins and hypotension - BMP at noon - 40 Lasix x1 Assessment & Plan (08/27/2019 2:51 AM FINISHER ACCORDION): Cr up to 1.32 from 1.1 post-op. Very minimal urine output. Likely ATN related to long CPB time. -avoid nephrotoxins and hypotension -d/c ulises-op vanc -MAP > 70 to optimize renal perfusion Pleural effusion 08/27/2019 Assessment & Plan (09/11/2019 10:25 AM FINISHER ACCORDION): --CXR 09/07 Small bibasilar pleural effusions again noted. Mild right base atelectasis again seen. --CT chest w/ results including: A small left pleural effusion is mildly loculated and contains a few internal punctate gas bubbles, likely postsurgical in nature. No right pleural effusion --On RA, no complaints Assessment & Plan (09/08/2019 10:33 AM FINISHER ACCORDION): CXR 09/07 Small bibasilar pleural effusions again noted. Mild right base atelectasis again seen. On RA, no complaints Assessment & Plan (08/31/2019 7:22 AM FINISHER ACCORDION): CXR only with bibasilar atelectasis now. However, pleural chest tube output remains high ~ 800ml/24hrs. Remains on room air. Good urine output. - Hold on diuresis for now but aim for negative FB - Encourage incentive spirometry - Out of bed, physical therapy - Maintain pleural chest tubes to -20 suction Assessment & Plan (08/30/2019 2:24 PM FINISHER ACCORDION): CXR with small L effusion but on room air. 2+ BLE edema noted. FB (-) 228ml with Lasix 40 yesterday. - Encourage use of acapella - Out of bed, physical therapy - Consider diuretics if FB + or new O2 requirement - DC mediastinal chest tubes today per CTS, keep pleural tubes Assessment & Plan (08/29/2019 1:19 PM FINISHER ACCORDION): Patient uses 2L NC occasionally but mainly on room air. CXR w/ trace LLL effusion vs atelectasis. FB (-) 160 with Lasix 20 x 1 and then 40 x 1. - Encourage use of acapella - Out of bed, physical therapy - Wean O2 for oxygen saturations > 92% - FBG (=) d/t JAMES Assessment & Plan (08/28/2019 11:15 AM FINISHER ACCORDION): Patient uses 2L NC occasionally but mainly on room air. CXR w/ bibasilar atelectasis. - Encourage use of acapella - Out of bed, physical therapy - Wean O2 for oxygen saturations > 92% - 20 Lasix x1 Assessment & Plan (08/27/2019 1:44 PM FINISHER ACCORDION): Extubated 0100. On 4-6L NC. CXR w/ atelectasis. - Encourage incentive spirometry - Out of bed, physical therapy - Wean O2 for oxygen saturations > 92% - 40 Lasix x1 Acute blood loss anemia 08/26/2019 Overview (08/29/2019): Pre-op H/H 14.7/42.7. Has received 2U PRBCs intra-op. Assessment & Plan (09/09/2019 11:19 AM FINISHER ACCORDION): Expected, related to post op ABLA Stable, daily CBC No indication for transfusion today Assessment & Plan (09/05/2019 9:51 AM FINISHER ACCORDION): Stable, daily CBC No indication for transfusion today Assessment & Plan (08/31/2019 7:24 AM FINISHER ACCORDION): Expected anemia d/t surgical blood loss. H&H stable 05/21/28. High pleural chest tube output but serosanguinous. - No indication for transfusion - Daily CBC unless clinically indicated sooner Assessment & Plan (08/29/2019 1:33 PM FINISHER ACCORDION): Expected anemia d/t surgical blood loss. H/H stable at 9.4/28.6 (9.7/28.8). Moderate bleeding from CTs at 920ml over last 24hrs but mostly serosanguinous. No requirement of vasopressor support. - No clinical indication for transfusion at this time - Repeat CBC at 1200 to determine trend 1130: H/H 9.7/29.7. Will repeat CBC in am. Assessment & Plan (08/28/2019 11:15 AM FINISHER ACCORDION): Expected anemia following surgery. H&H stable 9.7/28.8 (10.4/31.0) - No indication for transfusion - Daily CBC Assessment & Plan (08/27/2019 1:45 PM FINISHER ACCORDION): Expected anemia following surgery. H&H stable. - No indication for transfusion - Daily CBC Assessment & Plan (08/27/2019 2:30 AM FINISHER ACCORDION): Expected following cardiac surgery. Moderate chest tube output. Post-op H/H 11.1/33. No pressors. - No acute indication for transfusion - Monitor CT output and notify CT surgery if > 150 for 2 consecutive hours - f/u am cbc Assessment & Plan (08/26/2019 8:02 PM FINISHER ACCORDION): Expected following cardiac surgery. H&H stable. Arrives to CTICU hemodynamically supported on Epi 0.06 mcg/kg/min. - No indication for transfusion, consider if patient becomes hemodynamically unstable with increased pressor requirements or hgb < 8 and symptomatic - CBC daily ETOH abuse 08/17/2019 Assessment & Plan (09/11/2019 10:34 AM FINISHER ACCORDION): Continue thiamine 100 mg po daily Continue folic acid 1mg po daily Assessment & Plan (09/02/2019 11:38 AM FINISHER ACCORDION): Continue thiamine 100 mg po daily Continue folic acid 1mg po daily Assessment & Plan (08/31/2019 7:20 AM FINISHER ACCORDION): Pt reports drinking 10 beers per day but quit about 10 days before surgery. Calm without tremor or delirium. - Thiamine, folate supplements - CIWA scale (has not required benzos) - Monitor for DTs Assessment & Plan (08/30/2019 2:21 PM FINISHER ACCORDION): Pt reports drinking 10 beers per day but quit about 10 days before surgery. Currently calm without tremor or delirium. - Thiamine, folate supplements - CIWA scale (has not required benzos) - Monitor for DTs Assessment & Plan (08/29/2019 1:20 PM FINISHER ACCORDION): Pt reports drinking 10 beers per day w/ associated very mild transaminitis. Currently calm without tremor or delirium. - Thiamine, folate supplements - [facility] protocol - Monitor for DTs Assessment & Plan (08/28/2019 11:15 AM FINISHER ACCORDION): Pt reports drinking 10 beers per day. Currently calm with mild tremor noted. - Thiamine, folate supplements - [facility] protocol - Monitor for DTs Assessment & Plan (08/27/2019 1:34 PM FINISHER ACCORDION): Pt reports drinking 10 beers per day. Currently calm with mild tremor noted. - Thiamine, folate - [facility] protocol - Monitor for DTs Assessment & Plan (08/27/2019 5:15 AM FINISHER ACCORDION): Reportedly 3-5 beers per day. -monitor for signs of DT's Assessment & Plan (08/18/2019 11:12 AM FINISHER ACCORDION): H/o heavy beer consumption > 12 beers/day [...] mcg/kg/min. Assessment & Plan (09/11/2019 10:20 AM FINISHER ACCORDION): S/p bio MV replacement (31 mm MAGNA) [...] note. Assessment & Plan (09/07/2019 10:36 AM FINISHER ACCORDION): S/p 08/26 aborted MV repair, bio MVR (31 mm MAGNA), and CABG x 1 (LION-LAD) No tubes, wires or lines Continue ASA, beta alina QTc 480 on daily amiod 400mg Assessment & Plan (09/01/2019 2:55 PM FINISHER ACCORDION): ICU Standards of Care: - ASA for [...] Albert Assessment & Plan (08/31/2019 7:25 AM FINISHER ACCORDION): ICU Standards of Care: - ASA for [...] surgery Assessment & Plan (08/30/2019 2:25 PM FINISHER ACCORDION): ICU Standards of Care: - ASA for [...] surgery Assessment & Plan (08/29/2019 1:16 PM FINISHER ACCORDION): ICU Standards of Care: - Cont ASA [...] 160 Assessment & Plan (08/28/2019 11:04 PM FINISHER ACCORDION): s/p MVR and CABG x 1. He [...] mobility Assessment & Plan (08/28/2019 11:16 AM FINISHER ACCORDION): s/p MVR and CABG x 1. He [...] mobility Assessment & Plan (08/28/2019 3:47 AM FINISHER ACCORDION): s/p MVR. He remains hemodynamically supported on Epi at 0.05 mcg/kg/min with an ScVO2 74.6%. - ASA Daily - Maintain a goal SBP < 140 - Eventually BB initiation once off inotropic support Assessment & Plan (08/26/2019 7:36 PM FINISHER ACCORDION): s/p MVR. Intra-op ECHO revealed evidence of normally functioning bio MV with MG=4 and no paravalvular leak on EPI .1 mcg/kg/min. He arrives hemodynamically supported on Epi at 0.04 mcg/kg/min. - ASA 300 mg DE now - ASA Daily - Maintain a goal SBP < 140 - Eventually BB initiation once off inotropic support Assessment & Plan (08/19/2019 12:32 PM FINISHER ACCORDION): 06/23 TTE shows preserved biventricular function and severe mitral regurgitation due to P2 prolapse -Plan for MV repair/ replacement -NPO at midnight -PFTs and carotids complete -Baseline labs, EKG, CXR obtained - consents signed Resolved Problems Problem Noted Date Diagnosed Date Resolved Date Thrombocytopenia 08/29/2019 08/30/2019 Assessment & Plan (08/29/2019 1:35 PM FINISHER ACCORDION): Pre-op Plt 112. Has received 3U Plts [...] 09/02/2019 Assessment & Plan (08/31/2019 7:23 AM FINISHER ACCORDION): Garcia cultures sent 08/29 in setting of worsening leukocytosis. Started on ceftriaxone for UA with WBC, leuk esterase, and bacteria. Urine culture finalized negative. Ceftriaxone DC'd last night. WBC continues to trend down. - f/u blood cultures Assessment & Plan (08/31/2019 3:36 AM FINISHER ACCORDION): Blood cultures and UA sent yesterday in setting of worsening leukocytosis. UA with WBC, leuk esterase, and bacteria. Started on empiric ceftriaxone. WBC continues to trend down, now 12.6. Remains afebrile. Urine culture now final negative - d/c ceftriaxone - f/u blood cultures Assessment & Plan (08/30/2019 2:30 PM FINISHER ACCORDION): Blood cultures and UA sent yesterday in setting of worsening leukocytosis. UA with WBC, leuk esterase, and bacteria. Started on empiric ceftriaxone. WBC down to 18.5 (22.4) today, afebrile. - f/u urine culture and blood culture results - Ceftriaxone for 5 day course unless urine culture results negative Assessment & Plan (08/30/2019 5:12 AM FINISHER ACCORDION): WBC peaked at 22 today. Afebrile. UA [...] ceftriaxone Assessment & Plan (08/29/2019 6:24 PM FINISHER ACCORDION): WBC up trending at 19.9 (17.8). Tm [...] 08/28/2019 Assessment & Plan (08/27/2019 1:45 PM FINISHER ACCORDION): Resolving. Lactate down to 5 from 11. - No need to trend lactate - Noon BMP Assessment & Plan (08/27/2019 2:09 AM FINISHER ACCORDION): Likely related to elevated lactate at 11, [...] 08/27/2019 Assessment & Plan (08/27/2019 2:32 AM FINISHER ACCORDION): Initial phos 2.8. Repeat down to 0.7. Labs resent and result unchanged at 0.7. -30 mMol KPhos Hypokalemia 08/27/2019 08/27/2019 Assessment & Plan (08/27/2019 2:44 AM FINISHER ACCORDION): Post-op WBK 5.1. Underlying rhythm NSR 70's with frequent PAC's. Pt receiving 60 mEq IV KCl. -f/u WBK after repletion Hyperglycemia 08/27/2019 08/31/2019 Assessment & Plan (08/30/2019 2:27 PM FINISHER ACCORDION): No prior history of DM. Likely exacerbated by Epi and inflammatory response following surgery. BG 100-130s last 24 hours. - Cont SSI QID Assessment & Plan (08/29/2019 1:30 PM FINISHER ACCORDION): No prior history of DM. Hyperglycemia in the post-operative period likely inflammatory response s/p invasive surgery w/ pressor support. - Cont SSI - Restart Insulin gtt for BS > [address] ICU protocol Assessment & Plan (08/28/2019 11:47 PM FINISHER ACCORDION): No history of DM. Likely related to stress response. Currently, BG overnight 129-150. - HD SSI to high dose to maintain BS < 180 - Accuchecks Q 4 Assessment & Plan (08/28/2019 11:16 AM FINISHER ACCORDION): No history of DM. Likely related to stress response. BG overnight 150-190. - Increase SSI to high dose to maintain BS < 180 -Accuchecks Q 4 Assessment & Plan (08/28/2019 3:49 AM FINISHER ACCORDION): No history of DM. Likely related to stress response. BG overnight > 180. - Continue glycemic control with SSI per CTICU protocol to maintain BG <180 Assessment & Plan (08/27/2019 2:53 AM FINISHER ACCORDION): Arrived to ICU on insulin gtt. No history of DM. Likely related to stress response. -continue insulin gtt per ICU protocol. Acute post-operative pain 08/26/2019 Assessment & Plan (09/02/2019 11:38 AM FINISHER ACCORDION): Continue prn pain medication Assessment & Plan (08/31/2019 7:20 AM FINISHER ACCORDION): Pain well controlled on current regimen. - Scheduled APAP x 5 days - PRN Oxycodone - Lidocaine patches to chest wall Assessment & Plan (08/30/2019 2:22 PM FINISHER ACCORDION): Pain well controlled on current regimen. - Scheduled APAP x 5 days - PRN Oxycodone - Lidocaine patches to chest wall Assessment & Plan (08/29/2019 1:04 PM FINISHER ACCORDION): Expected post-operative pain S/P sternotomy for CT Sx. Pain well controlled on current regimen. - Cont scheduled APAP - Cont prn Oxy - Cont Lidocaine patches Assessment & Plan (08/28/2019 11:15 AM FINISHER ACCORDION): Expected postop pain. Had increased incisional pain overnight requiring one dose of Dilaudid, otherwise pain well controlled. - Scheduled Tylenol and lidocaine patches - PRN oxycodone for breakthrough Assessment & Plan (08/27/2019 1:45 PM FINISHER ACCORDION): Expected postop pain. Well controlled. - Scheduled Tylenol and lidocaine patches - PRN oxycodone with dilaudid for breakthrough Assessment & Plan (08/27/2019 2:25 AM FINISHER ACCORDION): Sedated with propofol - changed propofol to precedex in anticipation of extubation - prn fentanyl - Once extubated, change fentanyl to dilaudid - add scheduled tylenol and prn oxycodone when able to safely swallow Assessment & Plan (08/26/2019 7:38 PM FINISHER ACCORDION): He arrives intubated and sedated on Dex gtt. Resting with eyes closed on exam. Appears to be comfortable on exam. - Discontinue Dex gtt - Initiate prop gtt for sedation until acidosis improves - Once extubated will change pain medication regimen to the following: - PRN oxycodone - Dilaudid PRN for breakthrough Acute respiratory failure 08/26/2019 Assessment & Plan (08/27/2019 2:19 AM FINISHER ACCORDION): Post-procedural short-term ventilator support with anticipated extubation. [...] incident Assessment & Plan (08/26/2019 8:23 PM FINISHER ACCORDION): Post-procedural short-term ventilator support with anticipated extubation. [...] ABG - Per Dr. Albert, strip CT [id number]: POC revealed pH 7.28/ [id number]/HCO3 20/ paO2 100--> 2 amps bicarb and [...] mcg/kg/min. Assessment & Plan (09/01/2019 2:49 PM FINISHER ACCORDION): TTE 08/29 with LVEF 54%, normal RV [...] diuresis Assessment & Plan (09/01/2019 2:43 AM FINISHER ACCORDION): TTE 08/29 with LVEF 54%, normal RV function, mild AR, mild TR; paradoxical septal motion noted. Epi decreased to 0.04 today in light of ongoing hypertension. - Keep Epi at 0.04 mcg/kg/min per Dr. Patino in the setting of JAMES - Amio 400 TID for afib prophylaxis - Hold on diuresis with good auto diuresis Assessment & Plan (08/31/2019 7:19 AM FINISHER ACCORDION): Remains on epi 0.05 mcg/kg/min. TTE 08/29 [...] diuresis Assessment & Plan (08/31/2019 2:25 AM FINISHER ACCORDION): Remains on epi 0.05 mcg/kg/min. TTE 08/29 [...] diuresis Assessment & Plan (08/30/2019 2:19 PM FINISHER ACCORDION): Remains on ep 0.05 mcg/kg/min. TTE 08/29 [...] 100ml/hr Assessment & Plan (08/30/2019 5:06 AM FINISHER ACCORDION): Remains on ep 0.05 mcg/kg/min. TTE today with LVEF 54%, normal RV function, mild AR, mild TR; paradoxical septal motion noted. - Keep Epi at 0.05 mcg/kg/min per Dr. Patino in the setting of worsening JAMES - Amio 400 TID for afib prophylaxis - Maintain negative fluid balance Assessment & Plan (08/29/2019 1:13 PM FINISHER ACCORDION): Overall improving, currently on Epi 0.05. ScVO2 [...] Repeat ScVO2 and BMP at 1200 1130: Cable Mock Up Assembler improved to 4.87 (4.92) but ScVO2 59.3. No increased oxygenation needed. TTE still pending. Assessment & Plan (08/28/2019 11:42 PM FINISHER ACCORDION): Improving. Postop echo w/ normal biventricular function [...] 0300. Assessment & Plan (08/28/2019 11:15 AM FINISHER ACCORDION): Resolving. Postop echo w/ normal biventricular function [...] 1200 Assessment & Plan (08/28/2019 3:51 AM FINISHER ACCORDION): Improving. Postop echo w/ normal biventricular function [...] mcg/kg/min. Assessment & Plan (08/27/2019 1:44 PM FINISHER ACCORDION): Resolving. Postop echo w/ normal biventricular function on Epi at 0.06. CI > 3. Significant lactic acidosis postop now improving. - DC swan/cordis - Keep Epi 0.06 today per Maniar - AAI @ 90 - Amio 400 TID for afib prophylaxis per Maniar - 40 Lasix x1 Assessment & Plan (08/27/2019 1:54 AM FINISHER ACCORDION): Post-op echo with normal biventricular function and [...] 70's) Assessment & Plan (08/26/2019 8:17 PM FINISHER ACCORDION): S/p CABG x1 and MVR.He received a [...] 09/09/2019 Assessment & Plan (09/06/2019 11:46 AM FINISHER ACCORDION): S/p CABG x1 on 08/26 On asa, statin, BB Wires out, TTE done Assessment & Plan (08/28/2019 11:16 AM FINISHER ACCORDION): S/p coronary bypass grafting x1 (LION to the LAD). Post-op care to include: - ASA 81 mg daily - Eventual BB once off inotropic support - Hold DESTINI/ARB in the post-op setting - Statin on hold 2/2 elevated LFTs - Pepcid for GI ppx - SCDs and subcutaneous heparin for DVT ppx - Completed uliess-op antibiotics - PT for decreased mobility after surgery Assessment & Plan (08/28/2019 3:45 AM FINISHER ACCORDION): S/p coronary bypass grafting x1 (LION to [...] surgery Assessment & Plan (08/27/2019 1:35 PM FINISHER ACCORDION): S/p coronary bypass grafting x1 (LION to [...] surgery Assessment & Plan (08/26/2019 7:36 PM FINISHER ACCORDION): S/p coronary bypass grafting x1 (LION to the LAD). Post-op care to include: - ASA 300 mg DE x1 - ASA 81 mg PO Daily [...] surgery Assessment & Plan (08/18/2019 11:10 AM FINISHER ACCORDION): 06/02 left heart catheterization showed a proximal LAD lesion with a right dominant system -plan for 08/19 CABGx1 LION to the LAD anastomosis -continue asprin Hypertension 08/17/2019 09/09/2019 Assessment & Plan (08/18/2019 11:11 AM FINISHER ACCORDION): Systolic BP 101-146 this admission -Continue Toprol [...] on file Legal Sex Male 2:58 AM FINISHER ACCORDION Gender Identity Not on file Sexual Orientation [...] 06/27/2023, 04/18/2023 Medical Devices Implanted Type Area Grinder Set Up Operator Surface Device Identifier Shelf Expiration Date Model / Serial / Lot [employer] [id number] Bobby s Perimount Magna 31mm Bioprosthesis Ease Heart - [id number] - [id number] Implanted:Qty: 1 on 08/26/2019 by Felton Albert MD at [facility] N/A: Heart [employer] 01/01/2022 [id number] / [id number] / Insurance [facility] [employer] [facility] Advance Directives For more information, please contact: [phone] * Full Code (Latest Code Status on File) Date Activated Date Inactivated Comments 09/12/2019 7:41 PM * Full Code Date Activated Date Inactivated Comments 08/26/2019 5:35 PM 09/11/2019 7:26 PM * Full Code Date Activated Date Inactivated Comments 08/17/2019 11:35 AM 08/20/2019 3:26 PM Care Teams Teacher Visually Impaired Relationship Specialty Start Date End Date Abelino Hudson MD [address] [place] [address] PCP - General Internal Medicine 03/03/19 Cesar Andres MD [address] [address] Consulting Physician Cardiology 08/07/19
--- OUTSIDE RECORDS SUMMARY | 2024-10-29 13:09 | XMS_ITS | Encounter Summary ---
Author Organization [facility] Address [address] [place] [address] Care Team Providers Care Scrap Stripper Hand Name Role Phone Abelino Hudson MD Primary Care Provider [phone] Reason for Referral * Consultation (Routine) - Closed Specialty Diagnoses / Procedures Referred By Contac t Referred To Contact Orthopedics Diagnoses Acute pain of left knee Abelino Hudson MD [address] [place] [address] [facility] [address] [place] [address] Referral ID Status Reason Start Date Expiration Date V isits Requested Visits Authorized [id number] Closed Specialty Services Required 07/15/2024 07/15/2025 1 1 Encounter Details Date Type Department Care Team (Latest Contact Info) Description 07/15/2024 Transcribe Orders [facility] - Centralized Scheduling [address] [place] [id number] Abelino Hudson MD [address] [place] [address] [phone] Acute pain of left knee Social History [...] Primary documented in this encounter Care Teams Scrap Stripper Hand Relationship Specialty Start Date End Date Abelino Hudson MD [address] [place] [address] PCP - General Internal Medicine 07/16/24 documented as of this encounter
--- OUTSIDE RECORDS SUMMARY | 2024-10-29 13:09 | XMS_ITS | Encounter Summary ---
Author Organization [facility] Address [address] [place] [address] Care Team Providers Care Appeals Writer Name Role Phone Abelino Hudson MD Primary Care Provider [phone] Penny Cisse RN Unavailable [phone] Brody Chawla MD Unavailable [phone] Encounter Details Date Type Department Care Team (Late st Contact Info) Description 08/21/2022 Abstract [facility] [address] Rohan Barahona MA Social History Tobacco Use [...] Coronavirus/COVID-19? 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 documented as of this encounter Plan of Treatment Upcoming Encounters Date Type Department Care Team (Late st Contact Info) Description 11/03/2024 10:30 AM LANDSCAPE AND YARDWORK LABORER Appointment [facility] [place] [address] Deja Orellana MD [address] [place] [address] 11/05/2024 1:15 PM LANDSCAPE AND YARDWORK LABORER Office Visit [facility], [address] [address] Deja Orellana MD [address] [place] [address] 11/28/2024 11:15 AM CDT Office Visit [facility] [address] Kerri Tinoco MD [facility] [address] [place] [address] 12/30/2024 8:00 AM CDT Appointment [facility] [place] [address] Kerri Tinoco MD Three [facility] [address] [place] [address] documented as of this encounter Procedures Procedure [...] documented as of this encounter Care Teams Appeals Writer Relationship Specialty Start Date End Date Abelino Hudson MD [address] [place] [address] PCP - General 12/22/15 Penny Cisse RN [address] [place], [place] [address] Access Liaison (Ambulatory) REGISTERED NURSE 10/11/22 11/07/22 Brody Chawla MD [address] [address] [place] [address] Consulting Physician ORTHOPAEDIC SURGERY 06/26/24 documented as of this encounter
--- OUTSIDE RECORDS SUMMARY | 2024-10-29 13:09 | XMS_ITS | Continuity of Care Document ---
Author Organization [facility] Address [address] [place] [address] Phone Care Team Providers Care Design And Sales Consultant Name Role Phone Levon Maria Unavailable Unavailable Advance Directives Directive Yes / No Effective Date File Name No Information Encounters Encounter Description Practice Location Reason(s) For Visit Diagnoses Date Provider Providers Copied on Encounter [facility], [address] [facility], [place], [place], [id number], [place] tel:[phone] [facility] No Information 4 [facility] er. [address] [facility], [address], [place], [place], [id number] , [place]. tel: [phone] Family History Family Member Type Diagnosis Age At Onset No Information Payers Payer name Insurance type Covered libertarian ID Authoriza tion(s) No Information Social History [...]
--- OUTSIDE RECORDS SUMMARY | 2024-10-29 13:09 | XMS_ITS | Encounter Summary ---
Author Organization [facility] Address [address] [place] [address] Care Team Providers Care Marble Cleaner Name Role Phone Abelino Husdon MD Primary Care Provider [phone] Brody Chawla MD Unavailable [phone] Reason for Visit * Reason Onset Date Comments Referral 10/29/2024 Encounter Details Date Type Department Care Team (Late st Contact Info) Description 10/29/2024 Telephone [facility] Family & Internal Medicine [address] [place] [address] Abelino Hudson MD [address] [place] [address] Referral Social History Tobacco Use Types [...] place to sleep or slept in a half-way (including now)? 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 Answer Date of Assessment Author Status No 10/11/2022 6:02 PM MOTION PICTURE EQUIPMENT SUPERVISOR Activ e * Do you have serious [...] in FAMILY PRACTICE was on: 09/25/2024 in [facility] Future appointment scheduled: Future Appointments Date Time Provider Department Center 11/03/2024 10:30 AM MD FERNANDO Cadena [facility] 11/05/2024 1:15 PM Deja Orellana MD [facility] 11/28/2024 11:15 AM Kerri Tinoco MD [facility] 12/30/2024 8:00 AM BOY ECHO 1 [facility] [employer] ON PICTURE EQUIPMENT SUPERVISOR documented in this encounter Plan of Treatment Upcoming Encounters Date Type Department Care Team (Late st Contact Info) Description 11/03/2024 10:30 AM MOTION PICTURE EQUIPMENT SUPERVISOR [facility]oint[facility] [place] [address] Deja Orellana MD [address] [place] [address] 11/05/2024 1:15 PM MOTION PICTURE EQUIPMENT SUPERVISOR Office Visit [facility], [address] [address] Deja Orellana MD [address] [place] [address] 11/28/2024 11:15 AM CDT Office Visit [facility] [address] Kerri Tinoco MD Three [facility] [address] [place] [address] 12/30/2024 8:00 AM CDT Appointment [facility] [place] [address] Kerri Tinoco MD Three [facility] [address] [place] [address] documented as of this encounter Goals Goal Patient Goal Type Associated Problems Recent Progress Patient-Stated? Author Patient will return to prior living situation and remain independent in ADLs upon discharge from hospital Lifestyle On track(2022 12:01 PM MOTION PICTURE EQUIPMENT SUPERVISOR) No Stephanie Carlson, RN Establish Plan for Symptom Monitoring Lifestyle On track(2022 1:23 PM MOTION PICTURE EQUIPMENT SUPERVISOR) No Penny Cisse RN Note: HTN: Patient to monitor blood pressure daily and record readings and call provider with consistent readings >140/90. Patient will maintain a low sodium diet . Patient will call provider with any visual disturbances, headaches or dizziness. Patient to take all medications as prescribed. Monitor - verbalizes recognition of s/s wound infections Lifestyle On track(2022 1:24 PM MOTION PICTURE EQUIPMENT SUPERVISOR) Penny Babin RN Consistently take medications as Prescribed Lifestyle On track(2022 1:23 PM MOTION PICTURE EQUIPMENT SUPERVISOR) Penny Babin RN Medications - demonstrates understanding of how and when to take anticoagulants, dietary restrictions, and signs and symptoms to report to PCP Lifestyle On track(2022 1:24 PM MOTION PICTURE EQUIPMENT SUPERVISOR) Penny Babin RN documented as of this encounter Visit Diagnoses Not on filedocumented in this encounter Additional Health Concerns Infection Onset Date Last Indicated Resolved Time MRSA 09/30/2024 09/30/2024 Assessment Noted Time PHQ-9 Depression Total Score: 0 05/08/20 22 8:25 AM CDT documented as of this encounter Care Teams Marble Cleaner Relationship Specialty Start Date End Date Abelino Hudson MD [address] [place] [address] PCP - General 12/22/15 Brody Chawla MD [address] [address] [place] [address] Consulting Physician ORTHOPAEDIC SURGERY 06/26/24 documented as of this encounter
--- OUTSIDE RECORDS SUMMARY | 2024-10-29 13:09 | XMS_ITS | Encounter Summary ---
Author Organization [facility] Address [address] [place] [address] Care Team Providers Care Senior Fire Protection Engineer Name Role Phone Abelino Hudson MD Primary Care Provider [phone] Brody Chawla MD Unavailable [phone] Encounter Details Date Type Department Care Team (Late st Contact Info) Description 10/28/2024 8:06 AM [facility] Hospital Encounter [facility] [address] [place] [address] Liz Yo, VERONA [address] [place] [address] [place] [address] Arrived Social History Tobacco Use Types Packs/Day [...] place to sleep or slept in a group home (including now)? 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 Answer Date of Assessment Author Status No 10/11/2022 6:02 PM LICENSE CLERK Activ e * Do you have [...] st Contact Info) Description 11/03/2024 10:30 AM LICENSE CLERK Appointment [facility] [address] [place] [address] Deja Orellana MD [address] [place] [address] 11/05/2024 1:15 PM LICENSE CLERK Office Visit [facility] [address], [address] [address] Deja Orellana MD [address] [place] [address] 11/28/2024 11:15 AM CDT Office Visit [facility] [address] Kerri Tinoco MD Three [facility] [address] [place] [address] 12/30/2024 8:00 AM CDT Appointment [facility] [place] [address] Kerri Tinoco MD Three [facility] [address] [place] [address] documented as of this encounter Goals Goal Patient Goal Type Associated Problems Recent Progress Patient-Stated? Author Patient will return to prior living situation and remain independent in ADLs upon discharge from hospital Lifestyle On track(2022 12:01 PM LICENSE CLERK) No Stephanie Carlson RN Establish Plan for Symptom Monitoring Lifestyle On track(2022 1:23 PM LICENSE CLERK) No Penny Cisse RN Note: HTN: Patient to monitor blood pressure daily and record readings and call provider with consistent readings >140/90. Patient will maintain a low sodium diet . Patient will call provider with any visual disturbances, headaches or dizziness. Patient to take all medications as prescribed. Monitor - verbalizes recognition of s/s wound infections Lifestyle On track(2022 1:24 PM LICENSE CLERK) No Penny Cisse RN Consistently take medications as Prescribed Lifestyle On track(2022 1:23 PM LICENSE CLERK) Penny Babin RN Medications - demonstrates understanding of how and when to take anticoagulants, dietary restrictions, and signs and symptoms to report to PCP Lifestyle On track(2022 1:24 PM LICENSE CLERK) Penny Babin RN documented as of this encounter Visit Diagnoses Not on filedocumented in this encounter Additional Health Concerns Infection Onset Date Last Indicated Resolved Time MRSA 09/30/2024 09/30/2024 Assessment Noted Time PHQ-9 Depression Total Score: 0 05/08/20 22 8:25 AM CDT documented as of this encounter Care Teams Senior Fire Protection Engineer Relationship Specialty Start Date End Date Abelino Hudson MD [address] [place] [address] PCP - General 12/22/15 Brody Chawla MD [address] [address] [place] [address] Consulting Physician ORTHOPAEDIC SURGERY 06/26/24 documented as of this encounter
--- OUTSIDE RECORDS SUMMARY | 2024-10-29 13:09 | XMS_ITS | Continuity of Care Document ---
Author Organization [facility] Address [address] [place] [address] [place] [address] Phone Care Team Providers Care Stripper Cutter Machine Name Role Phone Juan C Fernandez Unavailable Unavailable Procedures Procedure Date Post-op Follow-up Visit Post-op Follow-up Visit Remove Cataract, Insert Lens IOLMaster Office Consultation Advance Directives Directive Yes / No Effective Date File Name No Information Encounters Encounter Description Practice Location Reason(s) For Visit Diagnoses Date Provider Providers Copied on Encounter [facility], [address] [place] [address] [address], [place], [place], [id number], tel:[phone] [facility] No Information Dec-0 8-200 9 Krishnasamy Juan C. [address] [place] [address], [facility], [place]. tel:[phone] Referring Provider: Edd Shahid OD F, [address] [facility] [place], [facility]. tel:[phone] [facility], [address], [place], [place], [id number], [place] tel:[phone] [facility] No Information Dec-0 2-200 9 Krishnasamy Juan C. [facility] [address], [facility], [place]. tel:[phone] Referring Provider: Edd Shahid OD F, [address] [facility], [place], [place], [facility]. tel:[phone] [facility], [address], [place], [place], [id number], tel:[phone] [facility] No Information 0 1-200 9 Krishnasamy Juan C. [address] [place] [address], [facility], . tel:[phone] Referring Provider: Edd Shahid OD F, [address] [facility], [place], [place], [facility]. tel:[phone] [facility], [address], [place], [place], [id number], tel:[phone] [facility] No Information 8[address] Krishnasamy Juan C. [address] [place] [address], [facility], . tel:[phone] Referring Provider: Edd Shahid OD F, [address] [facility], [place], [place], [facility]. tel:[phone] Office Consultation [facility], [address] [facility] [address], [place], [place], [id number], tel:[phone] [facility] No Information 200 9 Krishnasamy Juan C. [address] [place] [address], [facility], . tel:[phone] Referring Provider: Edd Shahid OD F, [address] [facility], [place], [place], [facility]. tel:[phone] Family History Family Member Type Diagnosis Age At Onset No Information Payers Payer name Insurance type Covered green party ID Authoriza tion(s) No Information Social [...]
--- NOTE | 2024-10-29 17:42 | ED_ITS ---
HPI - Fall General Chief Complaint: Fall Stated Complaint: mechanical fall, -LOC, +thinners, lac to forehead Time Seen by Provider: 10/29/24 12:59 History of Present Illness HPI Narrative: Patient presents here after slipping on some ice and falling, hitting his face and both hands. No loss of consciousness but he is on a blood thinner. No pain anywhere other than some some stinging to the hands and face. Related Data Home Medications ?Medication ?Instructions ?Recorded ?Confirmed ?Last Taken ?Type allopurinol 300 mg tablet 300 mg PO DAILY 09/02/21 06/13/24 Unknown History atorvastatin 20 mg tablet 20 mg PO DAILY 09/02/21 06/13/24 Unknown History furosemide 40 mg tablet (Lasix) See Rx Instructions .Route .COMPLEX 09/02/21 06/13/24 Unknown History metoprolol succinate 25 mg 25 mg PO DAILY 09/02/21 06/13/24 Unknown History tablet,extended release 24 hr spironolactone 25 mg tablet 25 mg PO DAILY 09/02/21 06/13/24 Unknown History apixaban 5 mg tablet (Eliquis) 5 mg PO BID 06/13/24 06/13/24 Unknown History Allergies Allergy/AdvReac Type Severity Reaction Status Date / Time No Known Allergies Allergy Verified 10/29/24 12:40 Review of Systems Review of Systems: All systems reviewed & are unremarkable except as noted in HPI and below PMFSH Past Medical History Medical History Arterial insufficiency of lower extremity CAD (coronary artery disease) 80% stenosis LAD CHF (congestive heart failure) Right heart catheterization proximally 2017 demonstrated severe mitral valve regurgitation with preserved ejection fraction, mild pulmonary hypertension, and single-vessel coronary disease Chronic a-fib Chronic anticoagulation Hypertension Hyponatremia Pulmonary hypertension Mild Severe mitral valve regurgitation Surgical History Surgical History History of mitral valve repair History of right heart catheterization Performed by Dr. Spap approximately 2017 performed due to severe mitral valve regurgitation with flail posterior leaflet. Also patient had 80% stenosis of LAD History of tonsillectomy Hx of CABG Status post cataract extraction of both eyes with insertion of intraocular lens Social History Social History (Reviewed 08/23/24 @ 21:01 by KETAN Amaro Social History: Patient lives with his they have been for 57 years. They raised 2 daughters. 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 He still plays golf on a weekly basis. Patient has chronic heavy alcohol (beer) use for many decades. Patient is a lifelong nonsmoker. Code status: Full code Surrogate decision maker: Smoking status: Never smoker Alcohol intake: current Alcohol use details: He drinks greater than 20 beers a week. Do You Feel Safe in your Home?: Yes Lack of Transportation: No Lack of Food: Never True Current Housing: I Have Housing Concerned About Future Housing: No Difficulty Paying Gas/Electric Bills: No Difficulty Paying for Meds: No Currently Unemployed: No Education: High School Diploma/GED Difficulty w/ Childcare or Family Care: No Additional living arrangements comments: He lives with his . Spiritual care concerns: No Exam Narrative: EXAMINATION OF ORGAN SYSTEMS/BODY AREAS: Constitutional: Vital signs per nursing GENERAL:[No acute distress, non-toxic appearing.] HEAD: Laceration to the mid forehead, abrasions to the nose EYES: EOMI, conjunctiva normal ENT: Some dried blood around the nose LUNGS: Nonlabored breathing. HEART: [Regular rate and rhythm] ABD: [Soft], [nontender to palpation] EXT: Normal range of motion SKIN: Skin tears to bilateral hands, face, lac NEURO: [Alert and oriented x 3. No gross focal sensory or strength deficits.] PSYCH: Normal affect Course Vital Signs Vital signs: Vital Signs Temperature 97.4 F L 10/29/24 12:45 Pulse Rate 102 H 10/29/24 12:45 Respiratory Rate 16 10/29/24 12:45 Blood Pressure 109/54 L 10/29/24 12:45 Pulse Oximetry 100 10/29/24 12:45 Temperature 97.4 F L 10/29/24 12:45 Pulse Rate 102 H 10/29/24 12:45 Respiratory Rate 16 10/29/24 12:45 Blood Pressure 109/54 L 10/29/24 12:45 Pulse Oximetry 100 10/29/24 12:45 Procedures Laceration Laceration 1: Date: 10/29/24 Site: face Size (cm): 3 Description: stellate and clean Depth: simple, single layer Local Anesthetic: lidocaine 1% and with epi Amount of anesthesia used (mL): 3 Pre-repair: wound explored, irrigated, irrigated extensively and deep structures intact ====== Skin Level ====== Skin layer closed with: vicryl Size (cm): 5-0 Number of sutures: 3 Technique: simple, interrupted ====== Subcutaneous Layer ====== ====== Muscle Layer ====== ====== Tendon Layer ====== MDM - Fall MDM Narrative Medical decision making narrative: [facility]; multiple skin tears to bilateral hands and nose, laceration to face, neuro intact He has no obvious injury to his other extremities, or tenderness to any extremity and is moving everything normally without any obvious deformity. CT imaging obtained an x-ray worse hand without any obvious acute fracture or bleeding. Wound is cleaned and closed, his skin tears are cleaned and dressed. Wound care instructions provided follow-up to PCP with return precautions. Patient and at bedside agreeable to this plan. Discharge Plan Discharge Clinical Impression: Laceration of face, Fall, Skin tear Patient Disposition: Home, Self-Care Condition: Stable Instructions: Skin Tear (ED), Care For Your Absorbable Stitches (ED) Additional Instructions: Please follow-up with your doctor, keep the wounds clean, and come back to the emergency room for any further issues. You can take Tylenol as needed for pain. Patient Language: Hebrew Prescriptions: No Action allopurinol 300 mg Tablet 300 mg PO DAILY furosemide [Lasix] 40 mg Tablet See Rx Instructions .ROUTE .COMPLEX Rx Instructions: 20 mg orally every other day atorvastatin 20 mg Tablet 20 mg PO DAILY spironolactone 25 mg Tablet 25 mg PO DAILY metoprolol succinate 25 mg tablet extended release 24 hr 25 mg PO DAILY Eliquis 5 mg tablet 5 mg PO BID Follow-up/Referrals: Tristan,Abelino Savage MD [Primary Care Provider] - 2 Days
== END 2024-10-29 15:17 | disposition home or self-care (01) ==
PROVIDERS: Emergency Provider Emergency Medicine; PCP Internal Medicine
DX: S01.81XA Laceration without foreign body of other part of head, initial encounter (principal); I25.10 Atherosclerotic heart disease of native coronary artery without angina pectoris; I11.0 Hypertensive heart disease with heart failure; I50.9 Heart failure, unspecified; I48.91 Unspecified atrial fibrillation; Z79.01 Long term (current) use of anticoagulants; I27.20 Pulmonary hypertension, unspecified; I34.0 Nonrheumatic mitral (valve) insufficiency; W00.0XXA Fall on same level due to ice and snow, initial encounter
CPT/HCPCS: 12013; 70450; 72125; 73130; 99284